=== PATIENT | male | born 1950 | race Caucasian/White ===

== ENCOUNTER 2017-04-19 21:08 | Emergency (ER) | payer BC ==
[~2017-04-19] VITALS: Ht 167.6 cm; Wt 80.5 kg
[~2017-04-19 21:08] MED LIST: ASPEC81 PO; CRTOTS OT; LISI-725 PO
[2017-04-19 21:10] VITALS: Ht 167.6 cm; Wt 80.5 kg
[2017-04-19 22:26] VITALS: BP 199/108; PULSE 83; TEMP 36.6; O2SAT 97
--- NOTE | 2017-04-20 01:30 | EMERGENCY ROOM VISIT NOTE ---
History Report prepared by Jose Luis: Darcy Jovel Under the Supervision of: Dr. Jeanmarie Thompson M.D. First contact with patient: 21:39 Chief Complaint: EYE ASSESSMENT Stated Complaint: LOSS OF VISION IN RIGHT EYE History of Present Illness The patient is a 66 year old male who presents to the Emergency Room with complaints of constant decreased vision in the right eye beginning 4 hours ago. The patient states that he is near sighted and always has black floaters in his vision. He reports that over the last few days the number of floaters in his eye have been increasing in number and today he reports that there was an explosion of them with lightning bolts surrounding his vision before his vision went foggy. He notes that his vision is now foggy in all sales and he is having reduced vision. The patient states that he recently cut back on his Lisinopril dosage. He denies any eye pain, numbness, weakness, chest pain, shortness of breath, diabetes, stroke, vision problems, eye trauma, eye discharge, and photophobia. Source of History: patient Onset: 4 hours ago Position: eye (right) Quality: other (foggy) Timing: constant Associated Symptoms: No chest pain, No SOB, No weakness, No numbness Note: Complains of lightning bolts and floaters. Denies eye pain, vision problems, eye trauma, eye discharge, photophobia. Review of Systems See HPI for pertinent positives & negatives. A total of 10 systems reviewed and were otherwise negative. Past Medical & Surgical Medical Problems: (1) HTN (hypertension) Old medical records were reviewed. Nurse's notes were reviewed and I agree with. Denies any blood thinner usage Family History No pertinent family history stated. Social History Smoking Status: Never Smoker Marital Status: single Occupation Status: employed Current/Historical Medications Scheduled Aspirin Enteric Coated (Ecotrin Or Generic *), 81 MG PO DAILY Lisinopril (Zestril), 20 MG PO DAILY Neomycin/Polymyxin/Hydrocort Otic (Cortisporin Otic *), 4 DROPS OT TID Allergies Coded Allergies: No Known Allergies (Verified Allergy, Mild, 05/17/07) Physical Exam Vital Signs Date Time Temp Pulse Resp B/P (MAP) Pulse Ox O2 Delivery O2 Flow Rate FiO2 04/19/17 22:26 36.6 83 18 199/108 97 10/13/17 22:26 83 18 199/108 97 Room Air 04/19/17 21:10 36.6 83 18 214/97 97 Room Air Right Eye Acuity: 20/50 with glasses Left Eye Acuity: 20/20 with glasses Physical Exam General: Non-ill appearing older male in no acute distress. HEENT: Normal cephalic atraumatic. Pupils are equal round and reactive to light. Extraocular movements are intact. No proptosis, sclera are nonicteric, no lesions. Intraocular pressure was 14 in the right and 17 in the left. Oropharynx is pink with moist mucous membranes. No swelling of the mouth lips or tongue. Neck: Supple with a midline trachea. No meningeal signs or stiffness, no JVD or bruits. No Stridor. Chest: Clear to auscultation bilaterally. No wheezes or rhonchi. No increased work of breathing. Heart: regular rate and rhythm. Abdomen: Soft nontender, nondistended without rebound guarding or rigidity. Extremities: No cyanosis clubbing or edema. No calf tenderness or assymetry Spine/Back. Non tender to palpation. No CVA tenderness Skin: Good turgor without rashes. Neurologic exam: Cranial nerves two through 12 are intact. Motor and sensation are intact and symmetrical throughout. Medical Decision & Procedures Procedure Slit Lamp Examination Indication: Vision Change The right eye was prepped with topical proparacaine. Slit lamp examination was performed in the standard fashion. Cornea appeared normal no lesion. Anterior chamber normal, no hyphema. Scleral injection not present. No discharge present. Fluorescein examination performed and normal. No foreign bodies noted. Negative Sunday sign. The patient tolerated the procedure well without complication. ED Course 2138: Past medical records reviewed. The patient was evaluated in room A2, and a complete history and physical examination were performed. 2211: I spoke to Dr. Peace of Opthamology and he took down the patients number and will call him tomorrow. If he is still having symptoms he will see him in the office. 2223: Upon reevaluation, the patient is doing well. I discussed the results and treatment plan with the patient. He verbalized agreement of the treatment plan. The patient was discharged home. Medical Decision Differentials include, but are not limited to; vitreous hemorrhage, retinal abnormality, TIA. This patient comes in with acute visual changes in his right eye. He's been seen floaters for quite some time to gotten worse over the last day or so and acutely got worse around 3 PM. He does see a lot of black spots. It's not confined to one area and it seems more diffuse. Besides this, he has no complaints of no trauma . There is no eye pain or headache. He has a normal neurologic exam and there is nothing to suggest that this is stroke or amaurosis fugax. Anterior chambers were normal on slit lamp. His intraocular pressures checked with the puff tonometer also normal. It was difficult to see his fundus on a nondilated exam. I did discuss the case with Dr. Peace, senior instructor on-call. He feels that most likely is a vitreous this detachment and this will likely get better on its own. He will actually call the patient in the morning and I gave him the patient's cell phone number which the patient gave me permission to give. He will recheck him in his office tomorrow where he has his full complement of ophthalmologic equipment to get a better exam. The patient was happy with the plan and will be discharged home with close follow-up with the senior instructor in the morning. He was encouraged to return if any new problems or concerns. Medication Reconcilliation Current Medication List: was personally reviewed by me Blood Pressure Screening Patient's blood pressure: Elevated blood pressure Blood pressure disposition: Elevated BP felt to be situational Consults Time Called: 2206 Consulting Physician: Dr. Peace of Opthamology Returned Call: [address] Peace of Opthamology and he took down the patients number and will call him tomorrow. If he is still having symptoms he will see him in the office. Impression Primary Impression: Visual changes Additional Impressions: Vitreous hemorrhage Floaters Scribe Attestation The scribe's documentation has been prepared under my direction and personally reviewed by me in its entirety. I confirm that the note above accurately reflects all work, treatment, procedures, and medical decision making performed by me. Departure Information Dispostion Home / Self-Care Referrals French Arroyo D.O. (PCP) Forms HOME CARE DOCUMENTATION FORM, IMPORTANT VISIT INFORMATION, WORK / SCHOOL INSTRUCTIONS Patient Instructions My [facility] Additional Instructions Rest Drink plenty of fluids Follow-up with Dr. Peace tomorrow, he will be calling you and if your vision is not getting better he can see you in the office Return if: Worsening of symptoms, fever chills, numbness weakness, any new problems or concerns. Problem Qualifiers
== END 2017-04-19 22:29 | disposition home or self-care (01) ==
LOC: C.EDB 21:09 → C.EDA 22:29
DX: H54.7 Unspecified visual loss (principal); H43.11 Vitreous hemorrhage, right eye; H43.391 Other vitreous opacities, right eye; I10 Essential (primary) hypertension; Z79.82 Long term (current) use of aspirin; Z79.899 Other long term (current) drug therapy

== ENCOUNTER 2017-04-24 21:05 | Emergency (ER) | payer OTHER, BC ==
[~2017-04-24] VITALS: Ht 167.6 cm; Wt 77.6 kg
[2017-04-24 21:12] VITALS: TEMP 37; Ht 167.6 cm; Wt 77.6 kg
[2017-04-24] MEDS ORDERED: ATIVAN 1MG HOMEPACK PO ONE (21:45)
[2017-04-24] MEDS ORDERED: ASPI81TA28 PO (21:56)
[2017-04-24] MEDS ORDERED: LISI-461 PO (21:56)
[2017-04-24 22:00] LABS: BASO % 0.2 %; BASO ABS # 0.02 K/uL (0-0.2); COMPLETE YES; EOS % 1.4 %; HEMATOCRIT 50.1 % (42-52); IG% 0.2 %; LYMPH % 23.2 %; LYMPH ABS # 2.67 K/uL (1.2-3.4); MEAN CELL VOLUME 90.8 fL (80-100); MEAN CORPUSCULAR HEMOGLOBIN 30.1 pg (25-34); MEAN CORPUSCULAR HGB CONC 33.1 g/dl (32-36); MONO % 8.9 %; NEUT % 66.1 %; PLATELET COUNT 318 K/uL (130-400); RED BLOOD COUNT 5.52 M/uL (4.7-6.1); WHITE BLOOD COUNT 11.52 K/uL (4.8-10.8)
[2017-04-24 22:23] LABS: BUN/CREATININE RATIO 13.4 (10-20); CALCIUM 9.1 mg/dl (8.5-10.1); CREATININE 1.45 mg/dl (0.60-1.40); POTASSIUM 4.2 mmol/L (3.5-5.1)
--- NOTE | 2017-04-24 22:31 | EMERGENCY ROOM VISIT NOTE ---
ED Visit Note First contact with patient: 21:37 This Patient was discussed with the physician first assistant, ADIS Dockery. The pertinent historical and physical exam findings were confirmed. I agree with the studies ordered and with the interpretations of these studies. I agree with the disposition and care plan.
[2017-04-24 22:35] VITALS: BP 167/110; PULSE 73; O2SAT 95
--- NOTE | 2017-04-25 00:46 | EMERGENCY ROOM VISIT NOTE ---
History First contact with patient: 21:37 Chief Complaint: HYPERTENSION Stated Complaint: HIGH BP History of Present Illness The patient is a 66 year old male who presents to the Emergency Room with complaints of high blood pressure for the past few days who just had retinal detachment surgery. Patient states she has underneath more stress and suffering from anxiety lately. He states he's having increasing anxiety over sleeping on the massage table. He thinks this is contributing to his elevated blood pressure. Patient states he is on lisinopril and his family doctor just increased it from 2.5-10 mg daily.. He states he frequently forgets to take it. He has been taking it daily for the past week though. Patient denies chest pain, dyspnea, headache, weakness, lightheadedness, dizziness, abdominal pain, nausea, vomiting, diarrhea, back pain, leg pain or swelling, recent travel. No family history of heart disease. No family history of blood clots. No prior stress test or echo. Review of Systems See HPI for pertinent positives & negatives. A total of 10 systems reviewed and were otherwise negative. Past Medical/Surgical History Medical Problems: (1) HTN (hypertension) Social History Smoking Status: Never Smoker Smokeless Tobacco Use: No Alcohol Use: none Drug Use: none Marital Status: single Occupation Status: employed Current/Historical Medications Scheduled Aspirin (Aspirin Ec), 81 MG PO DAILY Lisinopril (Zestril), 10 MG PO DAILY Physical Exam Vital Signs Date Time Temp Pulse Resp B/P (MAP) Pulse Ox O2 Delivery O2 Flow Rate FiO2 04/24/17 22:35 73 18 167/110 95 Room Air 04/24/17 21:57 81 16 158/100 96 Room Air 04/24/17 21:37 78 16 169/98 95 Room Air 04/24/17 21:27 79 04/24/17 21:12 37.0 78 18 194/121 96 Room Air Physical Exam VITALS: Vitals are noted on the nurse's note and reviewed by myself. Vital signs hypertensive GENERAL: Pleasant male, in no acute distress, nondiaphoretic, well-developed well-nourished. SKIN: The skin was without rashes, erythema, edema, or bruising. There is no tenting of the skin. Capillary reflex less than 2 seconds. HEAD: Normocephalic atraumatic. EARS: External auditory canals clear, tympanic membranes pearly vasques without erythema or effusion bilaterally. EYES: Left conjunctiva injected Pupils equal round and reactive to light and accommodation. Right Conjunctivae without injection, sclerae without icterus. NOSE: Patent, turbinates without inflammation or discharge. MOUTH: Mucous membranes moist. Pharynx without erythema or exudate. Uvula midline. Airway patent. Tongue does not deviate. NECK: Supple without nuchal rigidity. No lymphadenopathy. No thyromegaly. Cervical spine is nontender. No JVD. HEART: Regular rate and rhythm LUNGS: Clear to auscultation bilaterally without wheezes, rales or rhonchi. No dullness to percussion. No retractions or accessory muscle use. ABDOMEN: Positive bowel sounds x 4. Normal tympanic percussion. Soft, nontender, without masses or organomegaly. Beauchamp sign negative. No guarding or rebound tenderness. MUSCULOSKELETAL: No muscle atrophy, erythema, or edema noted. NEURO: Patient was alert and oriented to person place and time. Normal sensation to light and sharp touch. No focal neurological deficits. Medical Decision & Procedures Laboratory Results 04/24/17 21:20 Red Blood Count 5.52, Mean Corpuscular Volume 90.8, Mean Corpuscular Hemoglobin 30.1, Mean Corpuscular Hemoglobin Concent 33.1, Mean Platelet Volume 10.0, Neutrophils (%) (Auto) 66.1, Lymphocytes (%) (Auto) 23.2, Monocytes (%) (Auto) 8.9, Eosinophils (%) (Auto) 1.4, Basophils (%) (Auto) 0.2, Neutrophils # (Auto) 7.62, Lymphocytes # (Auto) 2.67, Monocytes # (Auto) 1.03, Eosinophils # (Auto) 0.16, Basophils # (Auto) 0.02 04/24/17 21:20 Test 04/24/17 21:20 White Blood Count 11.52 K/uL (4.8-10.8) Red Blood Count 5.52 M/uL (4.7-6.1) Hemoglobin 16.6 g/dL (14.0-18.0) Hematocrit 50.1 % (42-52) Mean Corpuscular Volume 90.8 fL (80-100) Mean Corpuscular Hemoglobin 30.1 pg (25-34) Mean Corpuscular Hemoglobin Concent 33.1 g/dl (32-36) Platelet Count 318 K/uL (130-400) Mean Platelet Volume 10.0 fL (7.4-10.4) Neutrophils (%) (Auto) 66.1 % Lymphocytes (%) (Auto) 23.2 % Monocytes (%) (Auto) 8.9 % Eosinophils (%) (Auto) 1.4 % Basophils (%) (Auto) 0.2 % Neutrophils # (Auto) 7.62 K/uL (1.4-6.5) Lymphocytes # (Auto) 2.67 K/uL (1.2-3.4) Monocytes # (Auto) 1.03 K/uL (0.11-0.59) Eosinophils # (Auto) 0.16 K/uL (0-0.5) Basophils # (Auto) 0.02 K/uL (0-0.2) RDW Standard Deviation 42.2 fL (36.4-46.3) RDW Coefficient of Variation 12.7 % (11.5-14.5) Immature Granulocyte % (Auto) 0.2 % Immature Granulocyte # (Auto) 0.02 K/uL (0.00-0.02) Anion Gap 7.0 mmol/L (3-11) Est Creatinine Clear Calc Drug Dose 47.8 ml/min Estimated GFR () 56.9 Estimated GFR (Non- 49.1 BUN/Creatinine Ratio 13.4 (10-20) Calcium Level 9.1 mg/dl (8.5-10.1) Medications Administered Medications (Trade) Dose Ordered Sig/Crow Route Start Time Stop Time Status Last Admin Dose Admin Lorazepam (Ativan 1MG Home Pack) 1 homepack UD ONCE PO 04/24/17 21:45 04/24/17 21:50 DC 04/24/17 22:34 1 HOMEPACK ED Course Prior records/ancillary studies reviewed regarding the history above. Triage Nursing notes reviewed. The patient's history was concerning for hypertension. Differential diagnosis: Etiologies such as benign hypertension, hypertensive emergency, cardiovascular pathology, pheochromocytoma, electrolyte abnormality, renal disease, endorgan damage, as well as others were entertained. Physical examination: As above. No signs of end organ damage. ER treatment provided: Home pack On reassessment the patient felt better. Diagnostic interpretation by me: The electrocardiogram was negative for pathologic change. Normal sinus, normal intervals, no acute ST-T wave changes. Impression normal sinus rhythm interpreted by myself The labs revealed mild leukocytosis. Patient just had a retinal detachment surgery This appears to be consistent with elevated blood pressure. Patient just had eye surgery. He has been underneath more anxiety and stress lately. He has not been sleeping well. He just had his blood pressure medicine increased by the family care doctor. He has a follow-up in a few days. He was advised to monitor his blood pressure and to follow-up with family care and ophthalmology in a few days or here in the ER sooner for headache, chest pain, difficulty breathing, high blood pressure, worsening signs or symptoms or as needed. Patient was neurovascularly neurologic intact. He is well-appearing. By the evaluation outlined above emergent etiologies such as hypertensive emergency, pheochromocytoma, endorgan damage, cardiac ischemia, aortic dissection, pulmonary embolism, pneumonia, pneumothorax, infections, gastrointestinal, as well as others were deemed relatively unlikely. The pt informed about the findings as listed above. All questions were answered and pleased with the treatment. Return instructions were outlined and the patient was discharged in stable condition. Outpatient prescription management: Ativan Referral: The patient was referred back to their primary care physician and ophthalmology for follow-up in 2 to 3 days for a recheck of the current condition. Case reviewed with my attending Medical Decision As above Medication Reconcilliation Current Medication List: was personally reviewed by me Blood Pressure Screening Patient's blood pressure: Elevated blood pressure Blood pressure disposition: Referred to PCP Impression Primary Impression: High blood pressure Additional Impression: Anxiety Departure Information Dispostion Home / Self-Care Condition GOOD Forms WORK / SCHOOL INSTRUCTIONS, HOME CARE DOCUMENTATION FORM, IMPORTANT VISIT INFORMATION Patient Instructions Hypertension Id, My [facility] Additional Instructions Ativan 1 mg: Half a tablet to 1 tablet as needed at night for anxiety. No alcohol or driving on this medication. Monitor your blood pressure. Follow-up as scheduled with your family doctor in one week for further workup for your elevated blood pressure. Follow-up as scheduled with your automatic buffer for further workup for your retinal detachment. Rest. Decrease stress. Return to ER sooner for chest pain, difficulty breathing, headaches, high blood pressure, worsening signs or symptoms or as needed. Problem Qualifiers Primary Impression: High blood pressure Hypertension type: unspecified Qualified Codes: I10 - Essential (primary) hypertension
== END 2017-04-24 22:50 | disposition home or self-care (01) ==
LOC: C.EDB 21:06 → C.EDA 22:50
DX: I10 Essential (primary) hypertension (principal); F41.9 Anxiety disorder, unspecified; Z79.82 Long term (current) use of aspirin

== ENCOUNTER → 2017-05-03 | Outpatient (CLI) | payer OTHER, BC ==
[~2017-05-03] MED LIST changes: -ASPEC81 PO; +ASPI81TA28 PO; -CRTOTS OT; +LISI-461 PO; -LISI-725 PO
[2017-05-03 17:46] LABS: BLOOD UREA NITROGEN 18 mg/dl (7-18); BUN/CREATININE RATIO 12.8 (10-20); CALCIUM 9.2 mg/dl (8.5-10.1); CARBON DIOXIDE 28 mmol/L (21-32); CHLORIDE 104 mmol/L (98-107); CREATININE 1.39 mg/dl (0.60-1.40); GLUCOSE 92 mg/dl (70-99); POTASSIUM 4.1 mmol/L (3.5-5.1); SODIUM 139 mmol/L (136-145)
== END | disposition home or self-care (01) ==
LOC: C.LAB1850 16:26
PROVIDERS: ATTEND Student in an Organized Health Care Education/Training Program
DX: I10 Essential (primary) hypertension (principal)

== ENCOUNTER → 2017-07-31 | Day surgery (SDC) | payer OTHER, BC ==
[2017-07-10 14:48] VITALS: Ht 167.6 cm; Wt 75.0 kg
[~2017-07-31] VITALS: Ht 167.6 cm; Wt 75.0 kg
[~2017-07-31] MED LIST changes: +500ML BSS 0.3ML EPI 1:1000PF IRRIG ONE; +ACETAMINOPHEN 325 MG TAB PO PRN; +AMLO5TAB2 PO; +AMVISC PLUS 0.8ML SYRINGE INT OCU ONE; +ATROPINE SULFATE 0.1 MG/ML 5ML SYR IV PRN; +AcetaZOLAMIDE 250 MG TAB PO SCH; +BETAXOLOL HCL 0.25% OP SUSP PER DROP CHARGE OPR SCH; +BRIMONIDINE TART 0.2% OP SOLN PER DROP CHARGE ONE; +BRIMONIDINE TARTRATE 0.2% 5ML ONE; +ENDOCOAT 0.85ML SYRINGE INT OCU ONE; +EpINEphrine INJ 1MG/ML AMP 1 MG/ML AMP ONE; +LACTATED RINGER'S 1000ML 500 ML IV SCH; +LIDOCAINE 4% OP SOLN DROP CHARGE ONE; +LIDOCAINE 4% OP SOLN DROP CHARGE OPR SCH; +LIDOCAINE HCL 1% MPF 2 ML VIAL ONE; -LISI-461 PO; +LISI20TA3 PO; +MIDAZOLAM HCL 1 MG/ML 2ML VIAL ONE; +MIX: 4ML BSS 1ML EPI 1:1000 PF INSTIL ONE; +MOXIFLOXACIN OPH SOLN PER DROP CHARGE ONE; +OCUCOAT 1 ML SOLN IO ONE; +POVIDONE-IODINE OP SOLN 30 ML BTL ONE; +PROPARACAINE 0.5% OP SOLN PER DROP CHARGE OPR SCH; +TOBRAMYCIN/DEXAMETHASONE OPH OINT PER APPLN CHARGE ONE
[2017-07-31] MEDS: PHENYLEPHRINE HCL 2.5% OP SOLN PER DROP CHARGE OPR SCH ×2 (06:32→06:37)
[2017-07-31] MEDS: TROPICAMIDE 1% OP SOLN PER DROP CHARGE OPR SCH ×2 (06:33→06:38)
[2017-07-31] MEDS: CYCLOPENTOLATE HCL 1% OP SOLN PER DROP CHARGE OPR SCH ×2 (06:34→06:39)
[2017-07-31] MEDS: MOXIFLOXACIN OPH SOLN PER DROP CHARGE OPR SCH ×2 (06:35→06:45)
--- NOTE | 2017-07-31 06:47 | History & Physical Bridge - SC ---
H&P Re-Evaluation Bridge Note: I have examined the patient, reviewed the History & Physical and in the interval since the performance of the History & Physical I have noted the following changes of clinical significance: No changes noted
--- NOTE | 2017-07-31 07:17 | [facility] Operative Report ---
Operative Report Date of Service Jul 31, 2017. Operative Report 1. PREOPERATIVE DIAGNOSIS: Senile nuclear cataract, right eye. 2. POSTOPERATIVE DIAGNOSIS: Senile nuclear cataract, right eye. 3. PROCEDURE: Phacoemulsification of right cataract with posterior chamber lens implant, type [employer], model MX60, power +16.5 diopters. ANESTHESIA: Local standby. SURGEON: Dr. Peace. COMPLICATIONS: None. OPERATING TIME: 10 minutes. 4. OPERATION AND FINDINGS: DESCRIPTION OF PROCEDURE: The right pupil was dilated. The anesthetic was administered using a topical technique. The right eye was prepped and draped. A speculum was placed. A clear corneal incision was formed. The chamber was filled with Amvisc Plus and Endocoat. Epinephrine solution was used. A paracentesis was placed. A capsulorrhexis was performed. The nucleus was hydrodissected. The lens was removed with phacoemulsification. Time was 5.53 seconds. The aspiration unit was used to remove the cortex. The capsule was filled with Amvisc Plus. The lens implant was folded and placed into the capsule. The incision was hydrated. The Amvisc was aspirated. The wound was secure. The chamber was deep. The pupil was round. Brimonidine, TobraDex ointment and Vigamox solution were placed. The speculum was removed. The patient was returned to the Recovery Room in stable condition. I attest to the content of the Intraoperative Record and any orders documented therein. Any exceptions are noted below. The scribe's documentation has been prepared in my presence, under my direction and personally reviewed by me in its entirety. I confirm that the note above accurately reflects all work, treatment, procedures, and medical decision making performed by me. I personally scribed for Momo Peace M.D. ([email or web address]) on 07/31/17 at 07:17. Electronically submitted by Sanjana Mckeon ([email or web address]).
--- NOTE | 2017-07-31 07:21 | Discharge Instructions-SurgCtr ---
Discharge Instructions Date of Service Jul 31, 2017. Visit Reason for Visit: Right Cataract Discharge Discharge Diagnosis / Problem: lens implant right eye Discharge Goals Goal(s): Improve function Activity Recommendations Activity Limitations: resume your previous activity Lifting Limitations: no more than 10 pounds Exercise/Sports Limitations: gradually increase as tolerated May Resume Sexual Activity: when tolerated Shower/Bathe: tomorrow Driving or Machine Use: resume 1 day after discharge Anesthesia . Post Anesthesia Instructions: If you have had General Anesthesia or IV Sedation: * Do not drive today. * Resume driving when surgeon permits. * Do not make important decisions or sign legal documents today. * Call surgeon for: 1. Temperature elevations greater than 101 degrees F. 2. Uncontrollable pain. 3. Excessive bleeding. 4. Persistent nausea and vomiting. 5. Medication intolerance (nausea, vomiting or rash). * For nausea and vomiting use only clear liquids such as: tea, soda, bouillon until nausea subsides, then gradually increase diet as tolerated. * If you have any concerns or questions, call your surgeon's office. If physician is unavailable and it is an emergency, call 911 or go to the nearest emergency room. . Instructions / Follow-Up Instructions / Follow-Up ACTIVITY RECOMMENDATIONS: * Light activities. * Mild irritation and blurred vision are common for the first few days. * You may walk outside, read, watch television. * Redness around the white part of the eye is common. MEDICATIONS: Resume previous medications unless instructed otherwise by your surgeon. * Take white Diamox (Acetazolamide) tablet at 1 pm today. Start all eye drops at 1 pm today: * Eye drops (today and tomorrow): Prednisone - one drop in operative eye every 3 hours while awake Ofloxacin - one drop in operative eye every 3 hours while awake Ketorolac - one drop in operative eye every 3 hours while awake SPECIAL CARE INSTRUCTIONS: * Tape plastic shield over eye to sleep at night. Call your doctor at with any concerns or problems. FOLLOW UP VISIT: Follow-up with Dr Peace at [facility] office as scheduled. Diet Recommendations Home Diet: no limitations Procedures Procedures Performed: Right Cataract Phacoemulsification With Intraocular Lens Implant Pending Studies Studies pending at discharge: no Medical Emergencies . Who to Call and When: Medical Emergencies: If at any time you feel your situation is an emergency, please call 911 immediately. . Non-Emergent Contact Non-Emergency issues call your: Content Administrator Call Non-Emergent contact if: your pain is not controlled [phone] . . "Provider Documentation" section prepared by Momo Peace. .
[2017-07-31 07:22] VITALS: TEMP 36.6
[2017-07-31 07:44] VITALS: BP 131/78; PULSE 64; O2SAT 99
--- NOTE | 2017-07-31 07:55 | Anesthesia Progress Nt - [facility] ---
Anesthesia Post Op Note Date & Time Jul 31, 2017 at 07:55 Vital Signs Pain Intensity: 0 Vital Signs Past 12 Hours Date Time Temp Pulse Resp B/P (MAP) Pulse Ox O2 Delivery O2 Flow Rate FiO2 07/31/17 07:44 64 16 131/78 (95) 99 Room Air 07/31/17 07:22 36.6 74 16 124/77 (93) 95 Room Air 07/31/17 06:25 36.7 68 18 165/94 (117) 97 Room Air Notes Mental Status: alert / awake / arousable, participated in evaluation Pt Amnestic to Procedure: Yes Nausea / Vomiting: adequately controlled Pain: adequately controlled Airway Patency, RR, SpO2: stable & adequate BP & HR: stable & adequate Hydration State: stable & adequate Anesthetic Complications: no major complications apparent
== END | disposition home or self-care (01) ==
LOC: X.SURG 06:15
PROVIDERS: ATTEND Specialist
DX: H25.11 Age-related nuclear cataract, right eye (principal); I10 Essential (primary) hypertension; Z90.89 Acquired absence of other organs; Z98.890 Other specified postprocedural states

== ENCOUNTER 2017-09-18 16:39 | Emergency (ER) | payer OTHER, BC ==
[~2017-09-18] VITALS: Ht 167.6 cm; Wt 79.0 kg
[~2017-09-18 16:39] MED LIST changes: -500ML BSS 0.3ML EPI 1:1000PF IRRIG ONE; -ACETAMINOPHEN 325 MG TAB PO PRN; -AMVISC PLUS 0.8ML SYRINGE INT OCU ONE; -ATROPINE SULFATE 0.1 MG/ML 5ML SYR IV PRN; -AcetaZOLAMIDE 250 MG TAB PO SCH; -BETAXOLOL HCL 0.25% OP SUSP PER DROP CHARGE OPR SCH; -BRIMONIDINE TART 0.2% OP SOLN PER DROP CHARGE ONE; -BRIMONIDINE TARTRATE 0.2% 5ML ONE; -ENDOCOAT 0.85ML SYRINGE INT OCU ONE; -EpINEphrine INJ 1MG/ML AMP 1 MG/ML AMP ONE; -LACTATED RINGER'S 1000ML 500 ML IV SCH; -LIDOCAINE 4% OP SOLN DROP CHARGE ONE; -LIDOCAINE 4% OP SOLN DROP CHARGE OPR SCH; -LIDOCAINE HCL 1% MPF 2 ML VIAL ONE; -MIDAZOLAM HCL 1 MG/ML 2ML VIAL ONE; -MIX: 4ML BSS 1ML EPI 1:1000 PF INSTIL ONE; -MOXIFLOXACIN OPH SOLN PER DROP CHARGE ONE; -OCUCOAT 1 ML SOLN IO ONE; -POVIDONE-IODINE OP SOLN 30 ML BTL ONE; -PROPARACAINE 0.5% OP SOLN PER DROP CHARGE OPR SCH; -TOBRAMYCIN/DEXAMETHASONE OPH OINT PER APPLN CHARGE ONE
[2017-09-18 16:53] VITALS: TEMP 36.7; Ht 167.6 cm; Wt 79.0 kg
[2017-09-18] MEDS ORDERED: LORAZEPAM 0.5 MG TAB PO STA (17:20)
[2017-09-18 17:32] LABS: BASO % 0.2 %; BASO ABS # 0.02 K/uL (0-0.2); EOS % 0.4 %; EOS ABS # 0.04 K/uL (0-0.5); HEMOGLOBIN 16.6 g/dL (14.0-18.0); IG# 0.02 K/uL (0.00-0.02); LYMPH ABS # 2.08 K/uL (1.2-3.4); MEAN CELL VOLUME 92.3 fL (80-100); MEAN CORPUSCULAR HEMOGLOBIN 31.9 pg (25-34); MEAN CORPUSCULAR HGB CONC 34.6 g/dl (32-36); MEAN PLATELET VOLUME 9.4 fL (7.4-10.4); MONO % 5.6 %; MONO ABS # 0.51 K/uL (0.11-0.59); NEUT % 70.6 %; NEUT ABS # 6.37 K/uL (1.4-6.5); PLATELET COUNT 265 K/uL (130-400); RED CELL DISTRIBUTION WIDTH CV 12.6 % (11.5-14.5); RED CELL DISTRIBUTION WIDTH SD 42.4 fL (36.4-46.3); WHITE BLOOD COUNT 9.04 K/uL (4.8-10.8)
--- NOTE | 2017-09-18 17:47 | DIAGNOSTIC IMAGING REPORT ---
CT OF THE HEAD WITHOUT CONTRAST CLINICAL HISTORY: Evaluate for left eye floaters. Hypertension. COMPARISON STUDY: No previous studies for comparison. CT DOSE: 704.46 mGy.cm TECHNIQUE: Helical axial images of the head were obtained without IV contrast. Automated exposure control was utilized for the study. A dose lowering technique was utilized adhering to the principles of ALARA. FINDINGS: No acute intracranial hemorrhage, midline shift or mass effect is present. Brain volume is normal. Ventricular system is normal. Basilar cisterns are patent. There are no extra-axial collections. White matter hypodensity suggests small vessel disease. There are no findings to suggest acute dural sinus thrombosis or acute territorial infarct. There are no significant calvarial abnormalities. IMPRESSION: No acute intracranial findings. Electronically signed by: Ochoa Calle M.D. 09/18/2017 5:46 PM Dictated Date/Time: 09/18/2017 5:43 PM
[2017-09-18 17:53] LABS: ALBUMIN 4.1 gm/dl (3.4-5.0); ALT/SGPT 29 U/L (12-78); AST/SGOT 20 U/L (15-37); BLOOD UREA NITROGEN 21 mg/dl (7-18); CALCIUM 9.7 mg/dl (8.5-10.1); CARBON DIOXIDE 27 mmol/L (21-32); CREATININE 1.45 mg/dl (0.60-1.40); GLUCOSE 115 mg/dl (70-99); LIPASE 241 U/L (73-393); POTASSIUM 3.9 mmol/L (3.5-5.1); SODIUM 136 mmol/L (136-145)
--- NOTE | 2017-09-18 17:55 | DIAGNOSTIC IMAGING REPORT ---
CT SCAN OF THE ORBITS WITHOUT IV CONTRAST CLINICAL HISTORY: Floaters in the left eye. Visual changes. COMPARISON STUDY: CT of the brain performed concurrently on 09/18/2017. TECHNIQUE: High-resolution CT scan of the orbits is performed. Images are reviewed in the axial, sagittal, and coronal planes. IV contrast was not administered for this examination as per the referring clinician. A dose lowering technique was utilized adhering to the principles of ALARA. FINDINGS: The skeletal structures are osteopenic. The bony orbits are intact. Orbital contents are normal in appearance noting a right-sided ocular lens implant. There is no evidence of intra or extraconal mass. The extraocular muscles are normal and symmetric. The paranasal sinuses are clear. The mastoid air cells are well pneumatized. The visualized calvarium appears preserved. The imaged brain parenchyma is normal in appearance. IMPRESSION: 1. The bony orbits are intact. 2. Orbital contents are normal in appearance noting a right-sided ocular lens implant. Dictated: 09/18/2017 5:46 PM Transcribed: 09/18/2017 5:55 PM MARCO_Ced Electronically signed by: Saul Aguayo M.D. 09/18/2017 6:02 PM Dictated Date/Time: 09/18/2017 5:46 PM
[2017-09-18 17:56] LABS: ALKALINE PHOSPHATASE 80 U/L (45-117); TOTAL PROTEIN 7.9 gm/dl (6.4-8.2)
[2017-09-18] MEDS ORDERED: LISI10TA PO (18:15)
[2017-09-18] MEDS ORDERED: LORA-741 PO (18:22)
[2017-09-18 18:29] VITALS: BP 177/94; PULSE 78; O2SAT 95
--- NOTE | 2017-09-18 18:37 | EMERGENCY ROOM VISIT NOTE ---
History Report prepared by Jose Luis: Amy Rowland Under the Supervision of: Dr. Jeanmarie Thompson M.D. First contact with patient: 17:11 Chief Complaint: HYPERTENSION Stated Complaint: HIGH BLOOD PRESSURE History of Present Illness The patient is a 67 year old male who presents to the Emergency Room with complaints of persistent high blood pressure starting a couple days ago. The patient started to notice more floaters in his left eye 1-2 hours ago. He came to the ED today because the last time his blood pressure was high, he lost vision in his right eye. This loss in vision was preceded by increased floaters in his eye. He is concerned that the same might happen to his left eye today. He notes that he has been stressed recently and is feeling anxious. He denies any numbness, weakness, headache, chest pain, SOB, abdominal pain, or eye pain. The patient is on lisinopril and amlodipine. He denies any missed medications. He is on aspirin and no other blood thinners. He denies any history of glaucoma. He denies any alcohol use. Source of History: patient, family Onset: couple days ago Position: other (diffuse) Quality: other (high blood pressure) Timing: other (persistent) Associated Symptoms: No headache, No chest pain, No SOB, No abdominal pain, No weakness, No numbness Note: Pt reports feeling anxious. Review of Systems See HPI for pertinent positives & negatives. A total of 10 systems reviewed and were otherwise negative. Past Medical & Surgical Medical Problems: (1) HTN (hypertension) Old medical records were reviewed. Nurse's notes were reviewed and I agree with. Insert Family History FH: heart disease Hypertension Kidney disease Kidney stones Social History Smoking Status: Never Smoker Alcohol Use: none Drug Use: none Occupation Status: employed Current/Historical Medications Scheduled Aspirin (Aspirin Ec), 81 MG PO QAM Lisinopril (Prinivil), 10 MG PO QAM Scheduled PRN Amlodipine Besylate (Norvasc), 5 MG PO for Blood Pressure Lorazepam (Ativan), 0.5 MG PO Q6H PRN for Anxiety/Agitation Allergies Coded Allergies: No Known Allergies (Verified , 09/18/17) Physical Exam Vital Signs Date Time Temp Pulse Resp B/P (MAP) Pulse Ox O2 Delivery O2 Flow Rate FiO2 09/18/17 18:29 78 17 177/94 95 09/18/17 17:57 80 17 171/87 97 Room Air 09/18/17 17:31 190/93 09/18/17 16:53 36.7 87 18 225/87 99 Room Air Physical Exam General: Non-ill appearing mildly anxious older male in no acute distress. HEENT: Normal cephalic atraumatic. Pupils are equal round and reactive to light. Extraocular movements are intact. Oropharynx is pink with moist mucous membranes. No swelling of the mouth lips or tongue. Neck: Supple with a midline trachea. No meningeal signs or stiffness, no JVD or bruits. No Stridor. Chest: Clear to auscultation bilaterally. No wheezes or rhonchi. No increased work of breathing. Heart: regular rate and rhythm. Abdomen: Soft nontender, nondistended without rebound guarding or rigidity. Extremities: No cyanosis clubbing or edema. No calf tenderness or assymetry Spine/Back. Non tender to palpation. No CVA tenderness Skin: Good turgor without rashes. Neurologic exam: Cranial nerves two through 12 are intact. Motor and sensation are intact and symmetrical throughout. Medical Decision & Procedures ER Provider Diagnostic Interpretation: Radiology results as stated below per my review and radiologist interpretation: CT OF THE HEAD WITHOUT CONTRAST CLINICAL HISTORY: Evaluate for left eye floaters. Hypertension. COMPARISON STUDY: No previous studies for comparison. CT DOSE: 704.46 mGy.cm TECHNIQUE: Helical axial images of the head were obtained without IV contrast. Automated exposure control was utilized for the study. A dose lowering technique was utilized adhering to the principles of ALARA. FINDINGS: No acute intracranial hemorrhage, midline shift or mass effect is present. Brain volume is normal. Ventricular system is normal. Basilar cisterns are patent. There are no extra-axial collections. White matter hypodensity suggests small vessel disease. There are no findings to suggest acute dural sinus thrombosis or acute territorial infarct. There are no significant calvarial abnormalities. IMPRESSION: No acute intracranial findings. Electronically signed by: Ochoa Calle M.D. 09/18/2017 5:46 PM Dictated Date/Time: 09/18/2017 5:[address] SCAN OF THE ORBITS WITHOUT IV CONTRAST CLINICAL HISTORY: Floaters in the left eye. Visual changes. COMPARISON STUDY: CT of the brain performed concurrently on 09/18/2017. TECHNIQUE: High-resolution CT scan of the orbits is performed. Images are reviewed in the axial, sagittal, and coronal planes. IV contrast was not administered for this examination as per the referring clinician. A dose lowering technique was utilized adhering to the principles of ALARA. FINDINGS: The skeletal structures are osteopenic. The bony orbits are intact. Orbital contents are normal in appearance noting a right-sided ocular lens implant. There is no evidence of intra or extraconal mass. The extraocular muscles are normal and symmetric. The paranasal sinuses are clear. The mastoid air cells are well pneumatized. The visualized calvarium appears preserved. The imaged brain parenchyma is normal in appearance. IMPRESSION: 1. The bony orbits are intact. 2. Orbital contents are normal in appearance noting a right-sided ocular lens implant. Dictated: 09/18/2017 5:46 PM Transcribed: 09/18/2017 5:55 PM [place] Electronically signed by: Saul Aguayo M.D. 09/18/2017 6:02 PM Dictated Date/Time: 09/18/2017 5:46 PM Laboratory Results 09/18/17 16:17 Red Blood Count 5.20, Mean Corpuscular Volume 92.3, Mean Corpuscular Hemoglobin 31.9, Mean Corpuscular Hemoglobin Concent 34.6, Mean Platelet Volume 9.4, Neutrophils (%) (Auto) 70.6, Lymphocytes (%) (Auto) 23.0, Monocytes (%) (Auto) 5.6, Eosinophils (%) (Auto) 0.4, Basophils (%) (Auto) 0.2, Neutrophils # (Auto) 6.37, Lymphocytes # (Auto) 2.08, Monocytes # (Auto) 0.51, Eosinophils # (Auto) 0.04, Basophils # (Auto) 0.02 09/18/17 16:17 Test 09/18/17 16:17 09/18/17 17:26 White Blood Count 9.04 K/uL (4.8-10.8) Red Blood Count 5.20 M/uL (4.7-6.1) Hemoglobin 16.6 g/dL (14.0-18.0) Hematocrit 48.0 % (42-52) Mean Corpuscular Volume 92.3 fL (80-100) Mean Corpuscular Hemoglobin 31.9 pg (25-34) Mean Corpuscular Hemoglobin Concent 34.6 g/dl (32-36) Platelet Count 265 K/uL (130-400) Mean Platelet Volume 9.4 fL (7.4-10.4) Neutrophils (%) (Auto) 70.6 % Lymphocytes (%) (Auto) 23.0 % Monocytes (%) (Auto) 5.6 % Eosinophils (%) (Auto) 0.4 % Basophils (%) (Auto) 0.2 % Neutrophils # (Auto) 6.37 K/uL (1.4-6.5) Lymphocytes # (Auto) 2.08 K/uL (1.2-3.4) Monocytes # (Auto) 0.51 K/uL (0.11-0.59) Eosinophils # (Auto) 0.04 K/uL (0-0.5) Basophils # (Auto) 0.02 K/uL (0-0.2) RDW Standard Deviation 42.4 fL (36.4-46.3) RDW Coefficient of Variation 12.6 % (11.5-14.5) Immature Granulocyte % (Auto) 0.2 % Immature Granulocyte # (Auto) 0.02 K/uL (0.00-0.02) Erythrocyte Sedimentation Rate 10 mm/hr (0-14) Anion Gap 7.0 mmol/L (3-11) Est Creatinine Clear Calc Drug Dose 47.5 ml/min Estimated GFR () 56.5 Estimated GFR (Non- 48.8 BUN/Creatinine Ratio 14.6 (10-20) Calcium Level 9.7 mg/dl (8.5-10.1) Total Bilirubin 0.4 mg/dl (0.2-1) Direct Bilirubin < 0.1 mg/dl (0-0.2) Aspartate Amino Transf (AST/SGOT) 20 U/L (15-37) Alanine Aminotransferase (ALT/SGPT) 29 U/L (12-78) Alkaline Phosphatase 80 U/L (45-117) Total Protein 7.9 gm/dl (6.4-8.2) Albumin 4.1 gm/dl (3.4-5.0) Lipase 241 U/L (73-393) Bedside Troponin I < 0.030 ng/ml (0-0.045) Laboratory studies as stated above per my review. Medications Administered Medications (Trade) Dose Ordered Sig/Crow Route Start Time Stop Time Status Last Admin Dose Admin Lorazepam (Ativan Tab) 0.5 mg NOW STAT PO 09/18/17 17:20 09/18/17 17:23 DC 09/18/17 17:31 0.5 MG ECG Per My Interpretation Indication: other Rate (beats per minute): 87 Rhythm: normal sinus Findings: no acute ischemic change, no ectopy, other (poor baseline) Comparison ECG Date: 24-Apr-2017 Change: no significant change ED Course 1711: Past medical records reviewed. The patient was evaluated in room A12B, and a complete history and physical examination were performed. 172: Ativan Tab 0.5 mg PO. 1816: I discussed the patient's case with [facility] [place] ophthalmology. He will see the patient in the office tomorrow. 182: Upon reevaluation, the patient is feeling better. I discussed the results and treatment plan with him. He verbalized agreement of the treatment plan. The patient was discharged home. Medical Decision Differentials include, but are not limited to; anxiety, hypertension, intracranial process, CVA, cardiac disease, electrolyte or metabolic abnormality. This patient comes in as described above he was concerned his blood pressure was high. He had a vitreous hemorrhage/retinal detachment in the right eye in the past and had blood pressure elevation at that time. He has been very anxious lately. He has no other symptoms with exception of seeing more floaters on the left eye with occasional flash. We checked his visual acuity in that eye and it is 20/20. He was 20/70 in the right eye which he has had some previous damage and surgery on. He has no other neurologic symptoms. He has no chest pain or shortness of breath. EKG was unremarkable. CAT scan of the head and orbits do not show any acute findings. The anterior part of the eye looks normal. There is nothing to suggest glaucoma. He has no eye pain. His sed rate is not elevated. I discussed case with Dr. Peace who is seen this patient in the past. The patient was given Ativan here 0.5 mg PO for anxiety as he says he was feeling very anxious and his pressure is coming down with this. He does feel better. He did not drive. I will give him a small prescription for this and warned him that this can make him drowsy and do not take before drinking, driving, working. Dr. Valdivia said somebody's office can see him tomorrow morning. The patient was happy with this. I recommend he follow-up with his regular doctor as well as he may need long-term management of his high blood pressure or anxiety. He was encouraged to return to the ER if : worsening of symptoms, numbness or weakness, fever or chills, any new problems or concerns. He is happy to plan and discharged to home. Medication Reconcilliation Current Medication List: was personally reviewed by me Blood Pressure Screening Patient's blood pressure: Elevated blood pressure Blood pressure disposition: Referred to PCP Consults Time Called: 1811 Consulting Physician: [facility] Returned Call: 1816 I discussed the patient's case with him. He will see the patient in the office tomorrow. Impression Primary Impression: HTN (hypertension) Additional Impressions: Visual changes Anxiety Scribe Attestation The scribe's documentation has been prepared under my direction and personally reviewed by me in its entirety. I confirm that the note above accurately reflects all work, treatment, procedures, and medical decision making performed by me. Departure Information Dispostion Home / Self-Care Prescriptions Lorazepam (ATIVAN) 0.5 Mg Tab 0.5 MG PO Q6H Y for Anxiety/Agitation, #10 TAB Prov: Jeanmarie Thompson M.D. 09/18/17 Referrals French Arroyo D.O. (PCP) Forms HOME CARE DOCUMENTATION FORM, IMPORTANT VISIT INFORMATION, WORK / SCHOOL INSTRUCTIONS Patient Instructions My [facility] Additional Instructions Rest. Follow-up with your doctor this week for recheck of your blood pressure Return to the ER if increasing: Pain, worsening of symptoms, change in vision, any new problems or concerns Follow-up with Dr. Peace's office tomorrow for recheck For stress or anxiety, similar to the shoulder now may use Ativan 0.5 mg every 8 hours if needed Anxiety may make you drowsy and do not take before drinking, driving, working Check and log her blood pressure several times a day when relaxed Problem Qualifiers
== END 2017-09-18 18:30 | disposition home or self-care (01) ==
LOC: C.EDB 16:41 → C.EDA 18:30
DX: I10 Essential (primary) hypertension (principal); H53.9 Unspecified visual disturbance; F41.9 Anxiety disorder, unspecified

== ENCOUNTER 2019-01-23 02:02 | Inpatient (IN) ==
[2019-01-23] MEDS ORDERED: SODIUM CHLORIDE 0.9% 1000ML 1,000 ML IV ONE ×2 (02:51→02:52)
[2019-01-23 02:59] LABS: Basophils # (auto) 0.02 K/uL (0-0.2); Basophils % (auto) 0.2 %; Eosinophils # (auto) 0.13 K/uL (0-0.5); Eosinophils % (auto) 1.2 %; Hematocrit (blood only) 46.6 % (42-52); Hemoglobin 16.4 g/dL (14.0-18.0); Immature Granulocytes # (auto) 0.03 K/uL (0.00-0.02); Immature Granulocytes % (auto) 0.3 %; Lymphocytes # (auto) 2.15 K/uL (1.2-3.4); Lymphocytes % (auto) 20.4 %; Mean Corpuscular Hgb Conc 35.2 g/dL (32-36); Mean Corpuscular Volume 89.6 fL (80-100); Mean Platelet Volume 10.5 fL (7.4-10.4); Monocytes # (auto) 0.86 K/uL (0.11-0.59); Monocytes % (auto) 8.2 %; Neutrophils # (auto) 7.33 K/uL (1.4-6.5); Neutrophils % (auto) 69.7 %; Platelet Count 322 K/uL (130-400); RDW Coefficient of Variation 12.4 % (11.5-14.5); RDW Standard Deviation 40.3 fL (36.4-46.3); White Blood Count 10.52 K/uL (4.8-10.8)
[2019-01-23 03:07] LABS: Albumin Level 3.4 gm/dl (3.4-5.0); BUN Creatinine Ratio 9.5 (10-20); Calcium 9.3 mg/dl (8.5-10.1); Creatinine Clr Calc Pharmacy 36.7 ml/min; Est GFR (African American) 46.7; Est GFR (Non-African American) 40.3; Potassium 3.7 mmol/L (3.5-5.1)
[2019-01-23 03:18] LABS: Albumin Globulin Ratio 0.9 (0.9-2); Bilirubin,Total 1.9 mg/dl (0.2-1); Globulin 3.9 gm/dl (2.5-4.0); Total Protein 7.3 gm/dl (6.4-8.2)
[2019-01-23] MEDS ORDERED: METOPROLOL TARTRATE 1 MG/ML VIAL IV STA (03:31)
--- NOTE | 2019-01-23 04:29 | History & Physical Report ---
Date of Service January 23, 2019 Assessment & Plan (1) Atrial fibrillation with RVR: 67 y/o M hx HTN, HLD, CKD III, PAF. Presents with palpitations and abdominal pain. The pt was diagnosed with AF 08/2018. He was successfully cardioverted at that time and had not reverted to AF since. He developed tachycardia today and recognized that this was likely AF, presenting to the hospital therefore. He denies CP or SOB. He did however, c/o diffuse abdominal pain over the past 2 weeks. The pt's HR was in the 160s on arrival to the ER. Initial labs were notable for an elevated lipase and elevated LFTs. He denies nausea, vomiting or diarrhea. 1) Rapid AF - the pt is assigned to telemetry with a diltiazem drip. He remains on Eliquis and received additional metoprolol in the ER which had a marginal effect. We have consulted cardiology as they may want to perform additional cardioversion. 2) Abnormal LFTs/abdominal pain - pending US results - may have an obstruction. We will likely consult GI. 3) CKD creatinine is slightly above baseline - IVF provided - recheck BMP AM 4) HTN - hold Lisinopril - cont metoprolol with parameters 5) HLD - can continue Atorvastatin Full code - on Eliquis Total time for this admit including review of labs, meds, imaging, records - discussion with pt and ER attending. Present on Admission?: Yes (2) Abnormal LFTs: Present on Admission?: Yes History of Present Illness Chief Complaint: Abdominal pain, rapid AF Primary Care Provider: French Arroyo, 67 y/o M hx HTN, HLD, CKD III, PAF. Presents with palpitations and abdominal pain. The pt was diagnosed with AF 08/2018. He was successfully cardioverted at that time and had not reverted to AF since. He developed tachycardia today and recognized that this was likely AF, presenting to the hospital therefore. He denies CP or SOB. He did however, c/o diffuse abdominal pain over the past 2 weeks. The pt's HR was in the 160s on arrival to the ER. Initial labs were notable for an elevated lipase and elevated LFTs. He denies nausea, vomiting or diarrhea. 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, employed in IT Family: Mother owing to CHF Father at age 101 Allergies Allergy/AdvReac Type Severity Reaction Status Date / Time No Known Allergies Allergy Verified 01/23/19 03:36 Home Medications Home Medications Medication Instructions Recorded Confirmed Type aspirin [Adult Low Dose Aspirin] 81 mg PO .ON HOLD 08/09/18 01/23/19 History lisinopril [Zestril] 20 mg PO DAILY 08/09/18 01/23/19 History apixaban [Eliquis] 5 mg PO BID #60 tab 08/12/18 01/23/19 Rx atorvastatin 40 mg PO HS #30 tab 08/12/18 01/23/19 Rx metoprolol tartrate 25 mg PO BID #60 tab 08/12/18 01/23/19 Rx Past Med/Surg History Medical History HTN (hypertension) (Chronic) Afib CAD (coronary artery disease) CKD (chronic kidney disease) HOCM (hypertrophic obstructive cardiomyopathy) Hyperlipidemia NSTEMI (non-ST elevated myocardial infarction) Surgical History No pertinent past surgical history H/O colonoscopy H/O eye surgery H/O foot surgery Social History Preferred Language: Kiswahili Communication Ability: Effective Beliefs That Will Affect Care: None Current Living Situation: Alone current occupation: IT Feels Safe at Home: Yes Smoking Status: Never smoker Hx Alcohol Use: No Hx Substance Use: No Review of Systems Review of Systems: Gen: Denies fevers, night sweats, rigors, fatigue, malaise, weight loss/gain ENT: Denies congestion, throat pain, hearing loss Eyes: Denies acute visual changes CV: Denies CP, + palpitations Pulmonary: Denies SOB, cough, wheezing GI: Abdominal pain Neuro: Denies acute or unilateral weakness, acute gait impairment, headache or acute visual changes Musculoskeletal: Denies joint pain, inflammation Endocrine: Denies polydipsia, polyuria Skin: Denies acute rashes or ulcers Physical Exam Physical Exam: General: AAO x 3, no distress ENT: No erythema or exudates, no thrush Eyes: CANDY, EOMI Head and neck: Normocephalic, atraumatic, No JVD, neck is supple. Chest/heart: Tachy, irreg, no murmurs Lungs: CTAB, no wheezing or crackles Abdomen: Minimal tenderness to palpation, no RUQ pain Neuro: AAO x 3, speech is clear, no unilateral weakness or loss of sensation, coordination intact Musculoskeletal: No joint inflammation, muscle tenderness, FROM Skin: No acute rashes or ulcers Extremities: No clubbing, cyanosis, edema Results & Data Vital Signs (Past 12 Hours) Vital Signs Temp Pulse Resp BP Pulse Ox 01/23/19 03:41 158 H 21 98 01/23/19 03:37 155 H 108/88 01/23/19 03:27 151 H 24 114/77 95 01/23/19 03:20 140 H 20 83/67 L 95 01/23/19 03:11 143 H 17 97 01/23/19 03:10 138 H 22 104/62 98 01/23/19 03:06 162 H 16 107/62 97 01/23/19 02:51 136 H 19 96 01/23/19 02:50 130 H 15 97/70 L 95 01/23/19 02:40 123 H 20 97/61 L 96 01/23/19 02:30 129 H 16 100/81 95 01/23/19 02:21 139 H 18 80/66 L 96 01/23/19 02:20 153 H 26 H 79/64 L 95 01/23/19 02:04 97.5 F L 73 16 98 PG Care Time/CCT Total # of Minutes Spent Total Time Spent with Patient: Total time spent is greater than 50% in coordination of care (as documented) at patient's floor/unit and/or counseling patient:
[2019-01-23] MEDS ORDERED: SODIUM CHLORIDE 0.9% 1000ML 1,000 ML IV SCH (04:45)
[2019-01-23] MEDS ORDERED: dilTIAZem HCl 125 MG in DEXTROSE 5% 100 ML IV STA (05:39)
[2019-01-23] MEDS ORDERED: IOVERSOL 100ml IV PRN (05:50)
[2019-01-23] MEDS ORDERED: dilTIAZem HCl 125 MG in DEXTROSE 5% 100 ML IV SCH (07:36)
[2019-01-23] MEDS ORDERED: MoRPHine SULFATE 4 MG/ML 1 ML CARP\\VIAL IV PRN (07:36)
[2019-01-23] MEDS ORDERED: dilTIAZem HCl 5 MG/ML 5 ML VIAL IV STA (07:36)
[2019-01-23] MEDS ORDERED: ACETAMINOPHEN 325 MG TAB PO PRN (07:36)
--- NOTE | 2019-01-23 07:37 | XRay Report ---
PA CHEST WITH ABDOMINAL SERIES CLINICAL HISTORY: Palpitations. Nausea. Generalized abdominal pain. FINDINGS: A PA chest radiograph is compared to study dated 08/09/2018. The heart is top normal for projection. Th e mediastinal contour is within normal limits. There is mild bibasilar scarring/atelectasis. No airsp hannah consolidation or large pleural effusion is identified. No pneumothorax is seen. The skeletal stru ctures are osteopenic. The bony thorax is grossly intact. Supine and erect abdominal radiographs are obtained. No prior studies are available for comparison at the time of dictation. There is a nonobstructed abdominal bowel gas pattern. Moderate colonic fecal retention is noted. No evidence of intraperitoneal free air is seen. There are no abnormal abdominal calcifications. Phleboliths are observed in the pelvis. The lumbosacral spine and bony pelvis appear intact. IMPRESSION: 1. No acute cardiopulmonary abnormality. 2. Nonobstructed abdominal bowel gas pattern. Electronically signed by: Saul Aguayo M.D. 01/23/2019 7:36 AM
--- NOTE | 2019-01-23 08:10 | CT Scan Report ---
CT OF THE ABDOMEN AND PELVIS WITH CONTRAST CLINICAL HISTORY: Elevated lipase. Abnormal liver function tests. Possible pancreatic mass. COMPARISON STUDY: Right upper quadrant ultrasound January 23, 2019. TECHNIQUE: Following IV administration of 92 mL of Optiray-320, axial images of the abdomen and pelvi s were obtained from the lung bases to the proximal femurs. Images were reviewed in the axial, sagitt al, and coronal planes. IV contrast was administered without complication. Automated exposure contro l was utilized for the study. A dose lowering technique was utilized adhering to the principles of A DOMINGO. CT DOSE: 323.64 mGy.cm FINDINGS: Imaged portions of the lower chest demonstrate a trace right pleural effusion. There are mu ltiple hepatic cysts. A 2.5 cm echogenic right hepatic lobe lesion favors a hemangioma. This correspo nds to one of the echogenic lesions by ultrasound. The spleen, adrenal glands are unremarkable. The r ight kidney is markedly atrophic. There is mild left collecting system dilatation with mild perinephr ic infiltration. The gallbladder is mildly distended. There is no pancreatic ductal dilatation. There is mild dilatation of the common bile duct which measures 8 mm. There is apparent abrupt caliber emmanuelle nge of the common bile duct at the level the pancreatic head. There is no pancreatic ductal dilatatio n. There is mild peripancreatic infiltration. There is a subtle 4.1 cm hypodense focus within the cho creatic head on axial image 142 of 451. This likely corresponds to the pancreatic abnormality by ultr asound. A prominent portacaval lymph node measures 1.2 cm in short axis diameter. The main, left and right portal veins are patent. Superior mesenteric artery is patent. There is trace pelvic ascites. C aliber and wall thickness of small and large bowel are normal. The appendix is normal. There is moder ate plaque of the abdominal aorta which is normal in caliber. There is no pelvic lymphadenopathy. IMPRESSION: 1. Mild peripancreatic infiltration which favors pancreatitis. This likely reflects interstitial desire atous pancreatitis, however autoimmune pancreatitis could have this appearance. Findings were discuss ed with the physician caring for the patient at time of dictation. 2. Subtle 4.1 cm hypoechoic density focus within the pancreatic head. This was more concerning for ad enocarcinoma by ultrasound. By CT, this is indeterminate and differential considerations include panc reatitis and pancreatic adenocarcinoma. Mild dilatation of the common bile duct with abrupt caliber c hange. No pancreatic ductal dilatation. A pancreatic protocol MRI may be of benefit in further evalua tion. GI consultation for consideration for endoscopic ultrasound might be considered. 3. Mildly distended gallbladder. Acute cholecystitis cannot be excluded. 4. 2.5 cm right hepatic lobe hemangioma. Several hepatic cysts. No suspicious hepatic lesions by CT. 5. Marked atrophy of the right kidney. Mild left collecting system dilatation. Electronically signed by: Ochoa Calle M.D. 01/23/2019 8:09 AM
--- NOTE | 2019-01-23 08:10 | Ultrasound Report ---
US gallbladder CLINICAL HISTORY: elevated lft's/lipse COMPARISON STUDY: Abdominal series January 23, 2019. FINDINGS: Multiple hepatic cysts are noted. Liver morphology is normal. Mild dilatation of the common bile duct is noted, measuring 8 mm in caliber. Note is made of several echogenic hepatic lesions, th e largest is a 2.3 cm right hepatic lobe lesion. The gallbladder is distended. The wall is mildly thi ckened with gallbladder wall edema. There is trace pericholecystic fluid. No gallstones are identifie d. Unable to assess for sonographic Beauchamp sign in this patient. Note is made of a 4.5 cm hypoechoic masslike abnormality within the pancreatic head. Pancreatic duct is at the upper limits of normal for caliber, measuring 3 mm. The right kidney is atrophic. Possible right renal lesion is likely artifac tual. IMPRESSION: 1. 4.5 cm hypoechoic mass-like abnormality within the pancreatic head. A pancreatic neoplasm is the d iagnosis of exclusion. A CT of the abdomen with contrast is recommended. Findings were discussed with the physician caring for the patient at time of dictation. 2. Minimal dilatation of the common bile duct, measuring 8 mm. No definite pancreatic ductal dilatati on. 3. Distended gallbladder with mild gallbladder wall thickening. No gallstones. These findings are non specific and acute cholecystitis cannot be excluded. 4. A few echogenic hepatic lesions which favor hemangiomas. Several hepatic cysts. 5. Atrophic right kidney. Electronically signed by: Ochoa Calle M.D. 01/23/2019 8:09 AM
[2019-01-23] MEDS ORDERED: LISINOPRIL 20 MG TAB PO SCH (09:00)
[2019-01-23] MEDS ORDERED: APIXABAN 5 MG TABLET PO SCH (09:00)
[2019-01-23] MEDS: NSS + 20MEQ KCL 20 MEQ/1,000 ML BAG IV SCH (09:49)
--- NOTE | 2019-01-23 11:49 | Gastrointestinal Consultation ---
Date of Consultation January 23, 2019 Assessment & Plan (1) Pancreatic mass: 68 year old male w/ history of HTN, HLD, CKD III, PAF on ASA, coumadin last dose was 01/22/19 presenting with two weeks of upper abdominal pain, nausea/vomiting and inability to toelrate PO. ABD US and CT imaging concerning for acute pancreatitis, pancreatic head mass, mild dilatation of the common bile duct with abrupt caliber change. He has markedly elevated lipase and LFTs - Please keep NPO - Will tentatively plan for ERCP today - Would continue to Hold ASA, Eliquis if clinically able - IV anti-emetics PRN - IV analgesia PRN - Trend LFTs, lipase - Will need EGD/EUS within the week if he chooses to go home Thank you for allowing us to participate in the care of this patient. Please call with any acute changes, questions or concerns. Please see addendum below with additional recommendation from my supervising physician. Present on Admission?: Yes Supervising Physician Co-Signing Physician Notes I have personally seen and examined the patient with ZONIA Arriola. Her note reflects my exam and findings. I agree with her impression and plan. Given concerns for biliary obstruction will arrange ERCP for drainage. Ashvin Álvarez M.D. History of Present Illness Reason for Consultation: LFT abnormality Requesting Physician: Nii Attending Physician: Black Bales MD History of Present Illness 68 year old male with history of HTN, HLD, CKD III, PAF on ASA, coumadin last dose was 01/22/19 who presented through the ED w concern for afib and persistent abdominal pain. Pt was seen and evaluated, chart reviewed. Pt notes two weeks worth of upper abdominal pain, post-prandial w/ mild nausea w/p vomiting. This is associated with decreased appetite and early satiety. He notes a mild weight loss during this two week period but no prior weight loss. He has noted a change in stool w/ soft, light colored stool and greasy stools. No black/bloody stools. No urinary changes, denies dark urine. He denies fever, chills, CP, SOB but was mildly febrile this AM. + family history of panc CA CT ABD/Pelvis: Mild peripancreatic infiltration which favors pancreatitis. This likely reflects interstitial edematous pancreatitis, however autoimmune pancreatitis could have this appearance. Findings were discussed with the ysician caring for the patient at time of dictation.Subtle 4.1 cm hypoechoic density focus within the pancreatic head. This was more concerning for adenocarcinoma by ultrasound. By CT, this is indeterminate and differential considerations include pancreatitis and pancreatic adenocarcinoma. Mild dilatation of the common bile duct with abrupt caliber change. No pancreatic ductal dilatation. A pancreatic protocol MRI may be of benefit in further evaluation. GI consultation for consideration for endoscopic ultrasound might be considered.Mildly distended gallbladder. Acute cholecystitis cannot be excluded. 2.5 cm right hepatic lobe hemangioma. Several hepatic cysts. No suspicious hepatic lesions by CT. Marked atrophy of the right kidney. Mild left collecting system dilatation. ABD US: 4.5 cm hypoechoic mass-like abnormality within the pancreatic head. A pancreatic neoplasm is the diagnosis of exclusion. A CT of the abdomen with contrast is recommended. Findings were discussed with the physician caring for the patient at time of dictation. Minimal dilatation of the common bile duct, measuring 8 mm. No definite pancreatic ductal dilatation. Distended gallbladder with mild gallbladder wall thickening. No gallstones. These findings are nonspecific and acute cholecystitis cannot be excluded.A few echogenic hepatic lesions which favor hemangiomas. Several hepatic cysts. Atrophic right kidney. Allergies Allergy/AdvReac Type Severity Reaction Status Date / Time No Known Allergies Allergy Verified 01/23/19 03:36 Home Medications Home Medications Medication Instructions Recorded Confirmed Type aspirin [Adult Low Dose Aspirin] 81 mg PO .ON HOLD 08/09/18 01/23/19 History lisinopril [Zestril] 20 mg PO DAILY 08/09/18 01/23/19 History apixaban [Eliquis] 5 mg PO BID #60 tab 08/12/18 01/23/19 Rx atorvastatin 40 mg PO HS #30 tab 08/12/18 01/23/19 Rx metoprolol tartrate 25 mg PO BID #60 tab 08/12/18 01/23/19 Rx Patient History Medical History HTN (hypertension) (Chronic) Afib CAD (coronary artery disease) CKD (chronic kidney disease) HOCM (hypertrophic obstructive cardiomyopathy) Hyperlipidemia NSTEMI (non-ST elevated myocardial infarction) Surgical History No pertinent past surgical history H/O colonoscopy H/O eye surgery H/O foot surgery Social History Preferred Language: Japanese Communication Ability: Effective Refrigeration Brazer/Solderer Required: No Beliefs That Will Affect Care: None Current Living Situation: Alone current occupation: IT Other Information That Helps Us Care for You: No Feels Safe at Home: Yes Safety Concerns: Feels Safe At This Time Smoking Status: Never smoker Hx Alcohol Use: Yes Alcohol Intake Frequency Comment: occasional Hx Substance Use: No Review of Systems Constitutional: no fever, no chills and no fatigue Respiratory: no cough, no dyspnea and no wheezing Cardiovascular: no chest pain, no radiating jaw, neck or arm pain and no dyspnea on exertion Gastrointestinal: + abdominal pain, + early satiety, + nausea, + vomiting, + c hange in bowel habits and + change in stools; no heartburn, no coffee ground emesis, no hematemesis, no dysphagia, no diarrhea/loose stools, no blood in stools and no melena Physical Exam Constitutional: WD/WN, vitals as above no acute distress and not ill appearing Neck: trachea midline Respiratory: normal respiratory effort, lungs clear to auscultation Cardiovascular: RRR, no murmur, no edema Gastrointestinal (Abdomen): Percussion/Palpation: + abdomen tender (upper abd pain w/ palpation) and abdomen soft; no guarding, abdomen not rigid, no abdominal mass and no ascites Skin: no rashes, warm and dry Results & Data Vital Signs (Past 12 Hours) Vital Signs Temp Pulse Pulse Resp BP BP Pulse Ox 01/23/19 11:42 37 C 72 18 140/75 96 01/23/19 07:32 37.8 C H 80 18 121/77 96 01/23/19 07:14 136 H 18 100/67 97 01/23/19 06:36 132 H 18 123/74 96 01/23/19 06:32 149 H 17 98/65 L 94 01/23/19 06:30 124 H 20 96 01/23/19 06:18 139 H 19 110/73 97 01/23/19 06:17 135 H 18 89/70 L 01/23/19 05:49 170 H 25 H 112/94 01/23/19 05:20 138 H 27 H 91/75 L 95 01/23/19 05:10 136 H 17 90/74 L 97 01/23/19 05:03 144 H 20 96/76 L 97 01/23/19 04:50 148 H 29 H 115/59 L 97 01/23/19 04:40 123 H 12 94/62 L 98 01/23/19 04:33 110 H 25 H 100/81 98 01/23/19 04:30 142 H 6 L 77/62 L 97 01/23/19 04:22 140 H 23 88/56 L 93 01/23/19 04:21 128 H 28 H 96 01/23/19 04:20 124 H 32 H 74/65 L 96 01/23/19 04:10 131 H 19 87/72 L 97 01/23/19 04:01 142 H 21 93/63 L 90 01/23/19 03:50 102/76 01/23/19 03:41 158 H 21 98 01/23/19 03:37 155 H 108/88 01/23/19 03:27 151 H 24 114/77 95 01/23/19 03:20 140 H 20 83/67 L 95 01/23/19 03:11 143 H 17 97 01/23/19 03:10 138 H 22 104/62 98 01/23/19 03:06 162 H 16 107/62 97 01/23/19 02:51 136 H 19 96 01/23/19 02:50 130 H 15 97/70 L 95 01/23/19 02:40 123 H 20 97/61 L 96 01/23/19 02:30 129 H 16 100/81 95 01/23/19 02:21 139 H 18 80/66 L 96 01/23/19 02:20 153 H 26 H 79/64 L 95 01/23/19 02:04 36.4 C L 73 16 98 Laboratory Results 01/23/19 01/23/19 01/23/19 Range/Units 04:06 03:37 02:14 WBC (4.8-10.8) K/uL RBC (4.7-6.1) M/uL Hgb (14.0-18.0) g/dL Hct (42-52) % MCV (80-100) fL MCH (25-34) pg MCHC (32-36) g/dL RDW Std Deviation (36.4-46.3) fL RDW Coeff of Raul (11.5-14.5) % Plt Count (130-400) K/uL MPV (7.4-10.4) fL Immature Gran % (Auto) % Neut % (Auto) % Lymph % (Auto) % [place] % (Auto) % Eos % (Auto) % Baso % (Auto) % Immature Gran # (Auto) (0.00-0.02) K/uL Neut # (Auto) (1.4-6.5) K/uL Lymph # (Auto) (1.2-3.4) K/uL [place] # (Auto) (0.11-0.59) K/uL Eos # (Auto) (0-0.5) K/uL Baso # (Auto) (0-0.2) K/uL Sodium 140 (136-145) mmol/L Potassium 3.7 (3.5-5.1) mmol/L Chloride 106 (98-107) mmol/L Carbon Dioxide 25 (21-32) mmol/L Anion Gap 9.0 (3-11) BUN 16 (7-18) mg/dl Creatinine 1.69 H (0.6-1.4) mg/dl Est Cr Clr Drug Dosing 36.7 ml/min Est GFR ( Amer) 46.7 Est GFR (Non-Af Amer) 40.3 BUN/Creatinine Ratio 9.5 L (10-20) Glucose 140 H (70-99) mg/dl Calcium 9.3 (8.5-10.1) mg/dl Total Bilirubin 1.9 H (0.2-1) mg/dl AST 447 H (15-37) U/L ALT 929 H (12-78) U/L Alkaline Phosphatase 401 H (45-117) U/L NT-Pro-B Natriuret Pep 328 (0-900) pg/ml Total Protein 7.3 (6.4-8.2) gm/dl Albumin 3.4 (3.4-5.0) gm/dl Globulin 3.9 (2.5-4.0) gm/dl Albumin/Globulin Ratio 0.9 (0.9-2) Lipase 2310 H (73-393) U/L TSH 2.560 (0.300-4.500) uIu/ml POC Urine pH Not Reportable POC Urine Protein Trace H (Negative) POC Ur Glucose (UA) Normal (Normal) POC Urine Ketones Negative (Negative) POC Urine Blood Negative (Negative) POC Urine Nitrite Negative (Negative) POC Urine Bilirubin Negative (Negative) POC Urine Urobilinogen Normal (Normal) POC U Leukocyte Esteras Negative (Negative) Ethyl Alcohol mg/dL < 3.0 (0-3) mg/dl 01/23/19 Range/Units 02:14 WBC 10.52 (4.8-10.8) K/uL RBC 5.20 (4.7-6.1) M/uL Hgb 16.4 (14.0-18.0) g/dL Hct 46.6 (42-52) % MCV 89.6 (80-100) fL MCH 31.5 (25-34) pg MCHC 35.2 (32-36) g/dL RDW Std Deviation 40.3 (36.4-46.3) fL RDW Coeff of Raul 12.4 (11.5-14.5) % Plt Count 322 (130-400) K/uL MPV 10.5 H (7.4-10.4) fL Immature Gran % (Auto) 0.3 % Neut % (Auto) 69.7 % Lymph % (Auto) 20.4 % [place] % (Auto) 8.2 % Eos % (Auto) 1.2 % Baso % (Auto) 0.2 % Immature Gran # (Auto) 0.03 H (0.00-0.02) K/uL Neut # (Auto) 7.33 H (1.4-6.5) K/uL Lymph # (Auto) 2.15 (1.2-3.4) K/uL [place] # (Auto) 0.86 H (0.11-0.59) K/uL Eos # (Auto) 0.13 (0-0.5) K/uL Baso # (Auto) 0.02 (0-0.2) K/uL Sodium (136-145) mmol/L Potassium (3.5-5.1) mmol/L Chloride (98-107) mmol/L Carbon Dioxide (21-32) mmol/L Anion Gap (3-11) BUN (7-18) mg/dl Creatinine (0.6-1.4) mg/dl Est Cr Clr Drug Dosing ml/min Est GFR ( Amer) Est GFR (Non-Af Amer) BUN/Creatinine Ratio (10-20) Glucose (70-99) mg/dl Calcium (8.5-10.1) mg/dl Total Bilirubin (0.2-1) mg/dl AST (15-37) U/L ALT (12-78) U/L Alkaline Phosphatase (45-117) U/L NT-Pro-B Natriuret Pep (0-900) pg/ml Total Protein (6.4-8.2) gm/dl Albumin (3.4-5.0) gm/dl Globulin (2.5-4.0) gm/dl Albumin/Globulin Ratio (0.9-2) Lipase (73-393) U/L TSH (0.300-4.500) uIu/ml POC Urine pH POC Urine Protein (Negative) POC Ur Glucose (UA) (Normal) POC Urine Ketones (Negative) POC Urine Blood (Negative) POC Urine Nitrite (Negative) POC Urine Bilirubin (Negative) POC Urine Urobilinogen (Normal) POC U Leukocyte Esteras (Negative) Ethyl Alcohol mg/dL (0-3) mg/dl
[2019-01-23] MEDS: METOPROLOL TARTRATE 25 MG TAB PO SCH (11:52)
--- NOTE | 2019-01-23 12:35 | Cardiology Consultation ---
Date of Consultation January 23, 2019 Assessment & Plan (1) Atrial fibrillation with RVR: The patient had 1 prior episode of atrial fibrillation which required cardioversion. He has actually done very well over the past 5 months without any documented episodes high heart rates or evidence of atrial fibrillation. Did have outpatient Holter monitoring shortly after initiation of his current medical regimen. This revealed an average heart rate of 61 beats per minute. There were no significant pauses but he did have some relative bradycardia at times. This morning he returned to a sinus rhythm. It is very possible that with his gastrointestinal disturbance any associated dehydration he transition back into atrial fibrillation. He was hydrated overnight with resolution of his arrhythmia. He has been appropriately anticoagulated. However, he is frustrated by the twice daily dosing of Eliquis and could easily be transition to Xarelto 20 milligrams daily I do not think there is any indication for rhythm control. He has had only 2 documented episodes over 5 months. I think would continue to monitor him for recurrence his and consider antiarrhythmic therapy for frequent recurrent episodes of atrial fibrillation. While his recorder trouble is probably not ideal when he is in atrial fibrillation, I do not believe we need to be more aggressive at this point. He has relative bradycardia at baseline and infrequent episodes currently. Again, he is frustrated by the twice daily dosing of metoprolol tartrate and could easily be Lisa incision to metoprolol succinate at an equivalent dose. (2) Left ventricular outflow tract obstruction: He was noted to have some intracavitary obstruction on echocardiography. However, he does not report symptoms of limiting dyspnea or other exertional symptoms. He has not experienced syncope. He is on a beta-mikie and this should be continued. (3) NSTEMI (non-ST elevated myocardial infarction): At the time of his last admission with elevated ventricular rates in atrial fibrillation he did have elevated cardiac biomarkers. Since that time he did undergo stress testing which did not reveal any evidence of inducible ischemia. He has not report symptoms of angina generally. He did not have chest pain associated with his current symptom. I do not believe there is any need for an additional evaluation currently. He should be continued on his beta-mikie and systemic anticoagulation. Patient also takes it daily anti- lipid agent in this should be continued. History of Present Illness Reason for Consultation: Atrial fibrillation Requesting Physician: Curt Attending Physician: Black Bales MD History of Present Illness The patient is a 68-year-old gentleman with a history of atrial fibrillation having previously undergone cardioversion in August of 2018. Recently, the patient has been experiencing symptoms of gastrointestinal upset. He states that with eating, he will develop some abdominal discomfort and bloating. Originally this seems to happen more commonly with fatty foods and was not severe or prolonged in nature. However more recently he has had difficulty with eating any foods. The symptoms are also more severe and can last several hours before they resolved. He has not had associated vomiting. He has had some change in his bowel habits in stool consistency. As result, he has lost 10 pounds by report and has had less oral intake. He feels that he may have been dehydrated recently. This morning the patient was a woken by a sense of palpitations. His personal heart rate monitor revealed a elevated heart rate. He had some associated dizziness but no chest discomfort or dyspnea. Due to the persistently high heart rate and mild dizziness he contacted a friend who drove him to the hospital. He was discovered to have atrial fibrillation and associated high rates. The patient was placed on a diltiazem infusion and admitted to the hospital. This morning the patient returned to a sinus rhythm. He had resolution of his palpitations and lightheadedness at that time. Currently he is feeling well. He has no abdominal complaints at this time. He states that he has been able to maintain his usual level of activity which involves regular exercise. This generally does not produce symptoms of dyspnea or chest discomfort. Allergies Allergy/AdvReac Type Severity Reaction Status Date / Time No Known Allergies Allergy Verified 01/23/19 03:36 Home Medications Home Medications Medication Instructions Recorded Confirmed Type aspirin [Adult Low Dose Aspirin] 81 mg PO .ON HOLD 08/09/18 01/23/19 History lisinopril [Zestril] 20 mg PO DAILY 08/09/18 01/23/19 History apixaban [Eliquis] 5 mg PO BID #60 tab 08/12/18 01/23/19 Rx atorvastatin 40 mg PO HS #30 tab 08/12/18 01/23/19 Rx metoprolol tartrate 25 mg PO BID #60 tab 08/12/18 01/23/19 Rx Patient History Medical History HTN (hypertension) (Chronic) Afib CAD (coronary artery disease) CKD (chronic kidney disease) HOCM (hypertrophic obstructive cardiomyopathy) Hyperlipidemia NSTEMI (non-ST elevated myocardial infarction) Surgical History No pertinent past surgical history H/O colonoscopy H/O eye surgery H/O foot surgery Social History Preferred Language: Martiniquais Communication Ability: Effective Tap And Die Maker Technician Required: No Beliefs That Will Affect Care: None Current Living Situation: Alone current occupation: IT Other Information That Helps Us Care for You: No Feels Safe at Home: Yes Safety Concerns: Feels Safe At This Time Smoking Status: Never smoker Hx Alcohol Use: Yes Alcohol Intake Frequency Comment: occasional Hx Substance Use: No Review of Systems Review of Systems: All systems reviewed & are unremarkable except as noted in HPI & below No recent fevers or chills. No lower extremity edema. Patient monitors his heart rate regularly and has not noticed any elevated heart rate readings until this morning. Physical Exam Physical Exam: The patient is alert and oriented. Mood and affect appeared normal. He answered all questions appropriately. HEENT: Pupils are equal and reactive to light and accommodation. Extraocular movements are intact. The sclerae are anicteric. Neuro: Cranial nerves intact Neck: Patient's neck is supple. He has palpable carotid pulses bilaterally without bruits on auscultation. There is no evidence of jugular venous distention. The thyroid is not enlarged. Lungs: Clear to auscultation bilaterally. He has good air movement without use of accessory muscles. No rales wheezes or rhonchi. Cardiac: Heart demonstrates a regular rate and rhythm. Normal S1 and S2. No murmurs on examination. Pulses: The patient has palpable radial pulses bilaterally that are equal in i ntensity Extremities: There was no evidence of hypoperfusion. There is no cyanosis or clubbing. There is no edema. Skin: I did not appreciate any rashes on examination today. Results & Data Vital Signs (Past 12 Hours) Vital Signs Temp Pulse Pulse Resp BP BP Pulse Ox 01/23/19 11:42 37 C 72 18 140/75 96 01/23/19 07:32 37.8 C H 80 18 121/77 96 01/23/19 07:14 136 H 18 100/67 97 01/23/19 06:36 132 H 18 123/74 96 01/23/19 06:32 149 H 17 98/65 L 94 01/23/19 06:30 124 H 20 96 01/23/19 06:18 139 H 19 110/73 97 01/23/19 06:17 135 H 18 89/70 L 01/23/19 05:49 170 H 25 H 112/94 01/23/19 05:20 138 H 27 H 91/75 L 95 01/23/19 05:10 136 H 17 90/74 L 97 01/23/19 05:03 144 H 20 96/76 L 97 01/23/19 04:50 148 H 29 H 115/59 L 97 01/23/19 04:40 123 H 12 94/62 L 98 01/23/19 04:33 110 H 25 H 100/81 98 01/23/19 04:30 142 H 6 L 77/62 L 97 01/23/19 04:22 140 H 23 88/56 L 93 01/23/19 04:21 128 H 28 H 96 01/23/19 04:20 124 H 32 H 74/65 L 96 01/23/19 04:10 131 H 19 87/72 L 97 01/23/19 04:01 142 H 21 93/63 L 90 01/23/19 03:50 102/76 01/23/19 03:41 158 H 21 98 01/23/19 03:37 155 H 108/88 01/23/19 03:27 151 H 24 114/77 95 01/23/19 03:20 140 H 20 83/67 L 95 01/23/19 03:11 143 H 17 97 01/23/19 03:10 138 H 22 104/62 98 01/23/19 03:06 162 H 16 107/62 97 01/23/19 02:51 136 H 19 96 01/23/19 02:50 130 H 15 97/70 L 95 01/23/19 02:40 123 H 20 97/61 L 96 01/23/19 02:30 129 H 16 100/81 95 01/23/19 02:21 139 H 18 80/66 L 96 01/23/19 02:20 153 H 26 H 79/64 L 95 01/23/19 02:04 36.4 C L 73 16 98 Laboratory Results Abnormal Lab Results 01/23/19 01/23/19 01/23/19 02:14 02:14 03:37 WBC 10.52 RBC 5.20 Hgb 16.4 Hct 46.6 MCV 89.6 MCH 31.5 MCHC 35.2 RDW Std Deviation 40.3 RDW Coeff of Raul 12.4 Plt Count 322 MPV 10.5 H Immature Gran % (Auto) 0.3 Neut % (Auto) 69.7 Lymph % (Auto) 20.4 [place] % (Auto) 8.2 Eos % (Auto) 1.2 Baso % (Auto) 0.2 Immature Gran # (Auto) 0.03 H Neut # (Auto) 7.33 H Lymph # (Auto) 2.15 [place] # (Auto) 0.86 H Eos # (Auto) 0.13 Baso # (Auto) 0.02 Sodium 140 Potassium 3.7 Chloride 106 Carbon Dioxide 25 Anion Gap 9.0 BUN 16 Creatinine 1.69 H Est Cr Clr Drug Dosing 36.7 Est GFR ( Amer) 46.7 Est GFR (Non-Af Amer) 40.3 BUN/Creatinine Ratio 9.5 L Glucose 140 H Calcium 9.3 Total Bilirubin 1.9 H AST 447 H ALT 929 H Alkaline Phosphatase 401 H NT-Pro-B Natriuret Pep 328 Total Protein 7.3 Albumin 3.4 Globulin 3.9 Albumin/Globulin Ratio 0.9 Lipase 2310 H TSH 2.560 POC Urine pH Not Reportable POC Urine Protein Trace H POC Ur Glucose (UA) Normal POC Urine Ketones Negative POC Urine Blood Negative POC Urine Nitrite Negative POC Urine Bilirubin Negative POC Urine Urobilinogen Normal POC U Leukocyte Esteras Negative Ethyl Alcohol mg/dL 01/23/19 04:06 WBC RBC Hgb Hct MCV MCH MCHC RDW Std Deviation RDW Coeff of Raul Plt Count MPV Immature Gran % (Auto) Neut % (Auto) Lymph % (Auto) [place] % (Auto) Eos % (Auto) Baso % (Auto) Immature Gran # (Auto) Neut # (Auto) Lymph # (Auto) [place] # (Auto) Eos # (Auto) Baso # (Auto) Sodium Potassium Chloride Carbon Dioxide Anion Gap BUN Creatinine Est Cr Clr Drug Dosing Est GFR ( Amer) Est GFR (Non-Af Amer) BUN/Creatinine Ratio Glucose Calcium Total Bilirubin AST ALT Alkaline Phosphatase NT-Pro-B Natriuret Pep Total Protein Albumin Globulin Albumin/Globulin Ratio Lipase TSH POC Urine pH POC Urine Protein POC Ur Glucose (UA) POC Urine Ketones POC Urine Blood POC Urine Nitrite POC Urine Bilirubin POC Urine Urobilinogen POC U Leukocyte Esteras Ethyl Alcohol mg/dL < 3.0 Diagnostic Findings Chest x-ray the time admission not reveal any acute cardiopulmonary findings Abdominal ultrasound was suggestive of [address] scan of the abdomen did not confirm any lesion ECG Additional Comments: Atrial fibrillation with rapid ventricular response
--- NOTE | 2019-01-23 18:42 | Family Medicine Progress Note ---
Date of Service January 23, 2019 Assessment & Plan (1) Atrial fibrillation with RVR: (1) Atrial fibrillation with RVR: 67 y/o M hx HTN, HLD, CKD III, PAF. Presents with palpitations and abdominal pain. The pt was diagnosed with AF 08/2018. He was successfully cardioverted at that time and had not reverted to AF since. He developed tachycardia today and recognized that this was likely AF, presenting to the hospital therefore. He denies CP or SOB. He did however, c/o diffuse abdominal pain over the past 2 weeks. The pt's HR was in the 160s on arrival to the ER. Initial labs were notable for an elevated lipase and elevated LFTs. He denies nausea, vomiting or diarrhea. 1) Rapid AF - Patient has a history of atrial fibrillation see above. He believes this episode of atrial fibrillation was brought on secondary to dehydration. Patient was placed on diltiazem drip overnight and provided intravenous fluid resuscitation. This morning his atrial fibrillation spontaneously converted to normal sinus rhythm. She continues to remain in normal sinus rhythm, having no signs or symptoms of ACS. Denies chest pressure, denies chest pain, denies shortness of breath -Cardiology was consulted per chief growth officer -They do not feel significant rhythm control is appropriate presently -Consider converting 25 mg twice daily IR metoprolol to ER 50 mg metoprolol succinate -Can consider transitioning from twice daily Eliquis to daily Xarelto 20 mg 2) Abnormal LFTs/abdominal pain CMP and other laboratory findings are concerning for pancreatitis. CT scan is consistent with pancreatitis unclear etiology autoimmune versus mass versus stone. Regardless the laboratory values indicate an obstruction type pattern. Ultrasound imaging was more concerning for a mass of the pancreatic head. Given that the patient has a strong family history of pancreatic cancer. It is pito t that this is further worked up expeditiously -GI was consulted -Patient is added on for an ERCP today, as of 7 PM he has not received the ERCP may have to be delayed till tomorrow -Pending the results of the ERCP patient may need an EUS. GI recommends the patient remain inpatient over the weekend to facilitate scheduling of EUS for Saturday -Radiology recommends abdominal MRI with and without contrast after ERCP -IV antiemetics PRN, IV analgesia PRN -Trend LFTs and lipase 3) CKD creatinine elevated on admission to 1.69. -Patient has been maintained on IV fluids, continue to trend daily CMP 4) HTN -Continue metoprolol -Holding lisinopril may resume when YENIFER resolves 5) HLD - can continue Atorvastatin FENa: N.p.o. for procedure Code Status: Full code DVT PPX: Mary Alicequis Dispo: MedSurg with telemetry Supervising Physician Co-Signing Physician Notes Attending attestation Pt seen and examined in concert with Dr. Vasques. In agreement with the documented findings as noted in the resident documentation with any exceptions or additions as noted here. Resolution of presenting nausea, palpitations and fatigue. On examination, S1/S2 nl RRR no MCG. CTAB. Abd NT/ND BS+ve. Abnormality on GI imaging - concerning for mass v. atypical stone presentation - gastroenterology consultation appreciated - pending ERCP and subsequent MR abdomen as recommended by radiology, with potential f/u EUS Else see resident documentation as noted. Subjective Patient resting in bed comfortably this morning in no acute distress. Reports no significant interval history since admission. Patient has been n.p.o. today for ERCP, he has an add-on in the end of the day as a 7:00 this evening he has not received the procedure. Patient does report a family history of pancreatic cancer. Other than that patient has been tolerating his diet, voiding, stooling , no acute distress. All questions answered no acute concerns. Physical Exam Physical Exam: General: No acute distress HEENT: Normocephalic atraumatic Neck: Normal to visual inspection, negative JVD Cardiac: Regular rate and rhythm, normal S1 normal S2, I did not appreciate any murmurs rubs or gallops, negative pedal edema, negative calf tenderness Respiratory: CTA BL, no no wheezes, rales, rhonchi GI: Normal bowel sounds, soft, nontender, nondistended MSK: Moves all extremities Skin: No new rashes Neuro: Alert and oriented Psych: Calm cooperative Results & Data Vital Signs (Past 12 Hours) Vital Signs Temp Pulse Pulse Resp BP BP Pulse Ox 01/23/19 07:32 37.8 C H 80 18 121/77 96 01/23/19 07:14 136 H 18 100/67 97 01/23/19 06:36 132 H 18 123/74 96 01/23/19 06:32 149 H 17 98/65 L 94 01/23/19 06:30 124 H 20 96 01/23/19 06:18 139 H 19 110/73 97 01/23/19 06:17 135 H 18 89/70 L 01/23/19 05:49 170 H 25 H 112/94 01/23/19 05:20 138 H 27 H 91/75 L 95 01/23/19 05:10 136 H 17 90/74 L 97 01/23/19 05:03 144 H 20 96/76 L 97 01/23/19 04:50 148 H 29 H 115/59 L 97 01/23/19 04:40 123 H 12 94/62 L 98 01/23/19 04:33 110 H 25 H 100/81 98 01/23/19 04:30 142 H 6 L 77/62 L 97 01/23/19 04:22 140 H 23 88/56 L 93 01/23/19 04:21 128 H 28 H 96 01/23/19 04:20 124 H 32 H 74/65 L 96 01/23/19 04:10 131 H 19 87/72 L 97 01/23/19 04:01 142 H 21 93/63 L 90 01/23/19 03:50 102/76 01/23/19 03:41 158 H 21 98 01/23/19 03:37 155 H 108/88 01/23/19 03:27 151 H 24 114/77 95 01/23/19 03:20 140 H 20 83/67 L 95 01/23/19 03:11 143 H 17 97 01/23/19 03:10 138 H 22 104/62 98 01/23/19 03:06 162 H 16 107/62 97 01/23/19 02:51 136 H 19 96 01/23/19 02:50 130 H 15 97/70 L 95 01/23/19 02:40 123 H 20 97/61 L 96 01/23/19 02:30 129 H 16 100/81 95 01/23/19 02:21 139 H 18 80/66 L 96 01/23/19 02:20 153 H 26 H 79/64 L 95 01/23/19 02:04 36.4 C L 73 16 98 Laboratory Results 01/23/19 01/23/19 01/23/19 Range/Units 04:06 03:37 02:14 WBC (4.8-10.8) K/uL RBC (4.7-6.1) M/uL Hgb (14.0-18.0) g/dL Hct (42-52) % MCV (80-100) fL MCH (25-34) pg MCHC (32-36) g/dL RDW Std Deviation (36.4-46.3) fL RDW Coeff of Raul (11.5-14.5) % Plt Count (130-400) K/uL MPV (7.4-10.4) fL Immature Gran % (Auto) % Neut % (Auto) % Lymph % (Auto) % [place] % (Auto) % Eos % (Auto) % Baso % (Auto) % Immature Gran # (Auto) (0.00-0.02) K/uL Neut # (Auto) (1.4-6.5) K/uL Lymph # (Auto) (1.2-3.4) K/uL [place] # (Auto) (0.11-0.59) K/uL Eos # (Auto) (0-0.5) K/uL Baso # (Auto) (0-0.2) K/uL Sodium 140 (136-145) mmol/L Potassium 3.7 (3.5-5.1) mmol/L Chloride 106 (98-107) mmol/L Carbon Dioxide 25 (21-32) mmol/L Anion Gap 9.0 (3-11) BUN 16 (7-18) mg/dl Creatinine 1.69 H (0.6-1.4) mg/dl Est Cr Clr Drug Dosing 36.7 ml/min Est GFR ( Amer) 46.7 Est GFR (Non-Af Amer) 40.3 BUN/Creatinine Ratio 9.5 L (10-20) Glucose 140 H (70-99) mg/dl Calcium 9.3 (8.5-10.1) mg/dl Total Bilirubin 1.9 H (0.2-1) mg/dl AST 447 H (15-37) U/L ALT 929 H (12-78) U/L Alkaline Phosphatase 401 H (45-117) U/L NT-Pro-B Natriuret Pep 328 (0-900) pg/ml Total Protein 7.3 (6.4-8.2) gm/dl Albumin 3.4 (3.4-5.0) gm/dl Globulin 3.9 (2.5-4.0) gm/dl Albumin/Globulin Ratio 0.9 (0.9-2) Lipase 2310 H (73-393) U/L TSH 2.560 (0.300-4.500) uIu/ml POC Urine pH Not Reportable POC Urine Protein Trace H (Negative) POC Ur Glucose (UA) Normal (Normal) POC Urine Ketones Negative (Negative) POC Urine Blood Negative (Negative) POC Urine Nitrite Negative (Negative) POC Urine Bilirubin Negative (Negative) POC Urine Urobilinogen Normal (Normal) POC U Leukocyte Esteras Negative (Negative) Ethyl Alcohol mg/dL < 3.0 (0-3) mg/dl 01/23/19 Range/Units 02:14 WBC 10.52 (4.8-10.8) K/uL RBC 5.20 (4.7-6.1) M/uL Hgb 16.4 (14.0-18.0) g/dL Hct 46.6 (42-52) % MCV 89.6 (80-100) fL MCH 31.5 (25-34) pg MCHC 35.2 (32-36) g/dL RDW Std Deviation 40.3 (36.4-46.3) fL RDW Coeff of Raul 12.4 (11.5-14.5) % Plt Count 322 (130-400) K/uL MPV 10.5 H (7.4-10.4) fL Immature Gran % (Auto) 0.3 % Neut % (Auto) 69.7 % Lymph % (Auto) 20.4 % [place] % (Auto) 8.2 % Eos % (Auto) 1.2 % Baso % (Auto) 0.2 % Immature Gran # (Auto) 0.03 H (0.00-0.02) K/uL Neut # (Auto) 7.33 H (1.4-6.5) K/uL Lymph # (Auto) 2.15 (1.2-3.4) K/uL [place] # (Auto) 0.86 H (0.11-0.59) K/uL Eos # (Auto) 0.13 (0-0.5) K/uL Baso # (Auto) 0.02 (0-0.2) K/uL Sodium (136-145) mmol/L Potassium (3.5-5.1) mmol/L Chloride (98-107) mmol/L Carbon Dioxide (21-32) mmol/L Anion Gap (3-11) BUN (7-18) mg/dl Creatinine (0.6-1.4) mg/dl Est Cr Clr Drug Dosing ml/min Est GFR ( Amer) Est GFR (Non-Af Amer) BUN/Creatinine Ratio (10-20) Glucose (70-99) mg/dl Calcium (8.5-10.1) mg/dl Total Bilirubin (0.2-1) mg/dl AST (15-37) U/L ALT (12-78) U/L Alkaline Phosphatase (45-117) U/L NT-Pro-B Natriuret Pep (0-900) pg/ml Total Protein (6.4-8.2) gm/dl Albumin (3.4-5.0) gm/dl Globulin (2.5-4.0) gm/dl Albumin/Globulin Ratio (0.9-2) Lipase (73-393) U/L TSH (0.300-4.500) uIu/ml POC Urine pH POC Urine Protein (Negative) POC Ur Glucose (UA) (Normal) POC Urine Ketones (Negative) POC Urine Blood (Negative) POC Urine Nitrite (Negative) POC Urine Bilirubin (Negative) POC Urine Urobilinogen (Normal) POC U Leukocyte Esteras (Negative) Ethyl Alcohol mg/dL (0-3) mg/dl Medications Administered Current Inpatient Medications Acetaminophen (Tylenol) 650 mg PO Q4H PRN PRN Reason: Pain or Fever Stop: 02/22/19 07:35 Aspirin (Ecotrin Ectab) 81 mg PO DAILY SILVIA Stop: 02/22/19 08:59 Atorvastatin Calcium (Lipitor) 40 mg PO HS SILVIA Stop: 02/22/19 20:59 Diltiazem HCl 125 mg/ Dextrose 125 mls @ 5 mls/hr IV .Q24H SILVIA; Protocol Stop: 02/22/19 07:35 Last Admin: 01/23/19 08:53 Dose: Not Given Documented by: Potassium Chloride/Sodium Chloride (Normal Saline W/20 Meq Kcl) 20 meq in 1,000 mls @ 100 mls/hr IV .Q10H SILVIA Stop: 01/24/19 03:35 Last Admin: 01/23/19 09:49 Dose: 100 mls/hr Documented by: Ioversol (Optiray 320 100ml) 100 ml IV ONCE PRN PRN Reason: Interaction Checking Stop: 01/27/19 05:49 Last Admin: 01/23/19 05:50 Dose: 92 ml Documented by: Metoprolol Tartrate (Lopressor) 25 mg PO BID SILVIA Stop: 02/22/19 08:59 Last Admin: 01/23/19 11:52 Dose: Not Given Documented by: Morphine Sulfate (Morphine Sulfate) 3 mg IV Q4H PRN PRN Reason: Pain Stop: 02/06/19 07:35 PG Care Time/CCT Total # of Minutes Spent Total Time Spent with Patient: Total time spent is greater than 50% in coordination of care (as documented) at patient's floor/unit and/or counseling patient: Resident Activity Tracking Resident Involvement: Resident Care Provided Care Provided: Adult Hospital Medicine
[2019-01-23] MEDS ORDERED: GADOBUTROL 65ML VIAL IV PRN (19:39)
--- NOTE | 2019-01-23 20:08 | History & Physical Bridge Note ---
Date of Service January 23, 2019 History & Physical Bridge Note I have examined the patient, reviewed the History & Physical and in the interval since the performance of the History & Physical I have noted the following changes of clinical significance: no changes noted ERCP today for cholangitis
--- NOTE | 2019-01-23 20:09 | Magnetic Resonance Report ---
MR abdomen wo/w con CLINICAL HISTORY: Pancreatic mass. COMPARISON STUDY: CT and ultrasound 01/23/2019. TECHNIQUE: MRI of the abdomen is performed transverse T1 and T2-weighted sequences in the axial and c oronal planes. Contrast enhanced sequences were acquired following the IV administration of . FINDINGS: Lower chest: Small right pleural effusion. Liver: Several small cysts and/or hemangiomas. Gallbladder: Unremarkable. Spleen: Normal in size and signal intensity. Pancreas: Possible 3.5 cm partially enhancing lesion juncture of the pancreatic head and uncinate pro cess. Endoscopic ultrasonography is suggested as follow-up. Trace peripancreatic infiltrative change. No evidence for abscess collection or pseudocyst. Adrenal glands: Unremarkable. Kidneys: Atrophic right kidney. Negative left kidney. Bowel: Nonobstructive Peritoneum: There is no abdominal ascites. Lymphadenopathy: None. Skeletal structures: Visualized skeletal structures times are normal marrow signal intensity. IMPRESSION: 1. Possible 3.5 cm partially enhancing lesion juncture pancreatic head and uncinate process. 2. Endoscopic ultrasonography is suggested as follow-up. 3. Trace peripancreatic infiltrative change. 4. Several small hepatic cysts and/or hemangiomas. 5. Trace right pleural effusion. 6. Narrowing of the distal common bile duct 7. Atrophic right kidney. The above report was generated using voice recognition software. It may contain grammatical, syntax or spelling errors. Electronically signed by: Joni Wagner M.D. 01/23/2019 8:08 PM
[2019-01-23] MEDS ORDERED: ePHEDrine sulfate 50 MG/ML AMP IV PRN (22:17)
[2019-01-23] MEDS ORDERED: ONDANSETRON INJ 2 MG/ML 2 ML VIAL IV PRN (22:17)
[2019-01-23] MEDS ORDERED: ATROPINE SULFATE 0.1 MG/ML 10ML SYR IV PRN (22:17)
[2019-01-23] MEDS ORDERED: PROMETHAZINE HCL 6.25 MG in SODIUM CHLORIDE 0.9% 50 ML IV PRN (22:17)
[2019-01-23] MEDS ORDERED: fentaNYL citrate 100 MCG/2 ML VIAL IV PRN (22:17)
--- NOTE | 2019-01-23 22:17 | Anesthesiology Consultation ---
Date of Service January 23, 2019 Assessment & Plan (1) Encounter for pre-operative examination: Chart Review Chart Review: Acceptable Risk for Surgery and Patient NOT seen in Pre Admission Testing Consults Requested none ASA ASA3 Proposed Anesthesia Anesthesia Type: General Risk / Benefits Reviewed With: PT / POA / Parent / Guardian, Accepts Plan and In formed Consent Obtained History Surgery Operation Date: 01/23/19 13:35 Proposed Procedures p Endoscopic Retrograde Cholangiopancreatogram - Heather Schmitt MD Height/Weight Height: 5 ft 6 in Weight: 70 kg Allergies Allergy/AdvReac Type Severity Reaction Status Date / Time No Known Allergies Allergy Verified 01/23/19 03:36 Medications Home Medications Medication Instructions Recorded Confirmed Last Taken aspirin [Adult Low Dose Aspirin] 81 mg PO .ON HOLD 08/09/18 01/23/19 Unknown lisinopril [Zestril] 20 mg PO DAILY 08/09/18 01/23/19 01/22/19 apixaban [Eliquis] 5 mg PO BID #60 tab 08/12/18 01/23/19 01/22/19 atorvastatin 40 mg PO HS #30 tab 08/12/18 01/23/19 01/22/19 metoprolol tartrate 25 mg PO BID #60 tab 08/12/18 01/23/19 01/22/19 Active Medications Generic Name Dose Route Start Last Admin Trade Name Freq PRN Reason Stop Dose Admin Gadobutrol 6.5 ml 01/23/19 19:39 01/23/19 19:40 Gadavist 65ml IV 01/27/19 19:38 6.5 ml ONCE PRN Administration Interaction Checking Diltiazem HCl 125 mg/ Dextrose 125 mls @ 5 mls/hr 01/23/19 07:36 01/23/19 08:53 IV 02/22/19 07:35 Not Given .Q24H SILVIA Protocol 5 MG/HR Potassium Chloride/Sodium Chloride 20 meq in 1,000 mls @ 100 mls/hr 01/23/19 07:36 01/23/19 09:49 Normal Saline W/20 Meq Kcl IV 01/24/19 03:35 100 mls/hr .Q10H SILVIA Administration Ioversol 100 ml 01/23/19 05:50 01/23/19 05:50 Optiray 320 100ml IV 01/27/19 05:49 92 ml ONCE PRN Administration Interaction Checking Metoprolol Tartrate 25 mg 01/23/19 09:00 01/23/19 11:52 Lopressor PO 02/22/19 08:59 Not Given BID SILVIA NPO Date Last Intake of Fluids: 01/22/19 Date Last Intake of Solids: 01/22/19 Past Medical History Medical History HTN (hypertension) (Chronic) Afib CAD (coronary artery disease) CKD (chronic kidney disease) HOCM (hypertrophic obstructive cardiomyopathy) Hyperlipidemia NSTEMI (non-ST elevated myocardial infarction) Exercise / Class Metabolic Activity II 4-5 Yardwork/Stairs/Walk up hill Past Surgical History Surgical History No pertinent past surgical history H/O colonoscopy H/O eye surgery H/O foot surgery Past Anesthesia History No Hx of Anesthesia Complications and No Family Hx of Anesthesia Complications History of PONV No Hx of PONV and No Hx of Motion Sickness Social History Smoking Status: Never smoker Hx Alcohol Use: Yes alcohol intake frequency: holidays/special occasions only Hx Substance Use: No substance use type: does not use Physical Exam Vital Signs Last Vital Signs Temp 37.1 C 01/23/19 20:07 Pulse 80 01/23/19 20:07 Resp 16 01/23/19 20:07 BP 159/81 H 01/23/19 20:07 Pulse Ox 96 01/23/19 20:07 ENMT Mouth: no dentition abnormality Thyromental Distance: > or= 3.5 Finger Breadths Mallampati Class: II Neck normal visual inspection Respiratory normal respiratory effort Auscultation: lungs clear to auscultation bilaterally Cardiovascular Rate/Rhythm: regular rate and regular rhythm Psychiatric Orientation: alert Testing Laboratory Results 01/23/19 02:14 01/23/19 02:14
[2019-01-23] MEDS ORDERED: fentaNYL citrate 100 MCG/2 ML VIAL ONE (22:28)
[2019-01-23] MEDS ORDERED: INDOMETHACIN 50 MG SUPP PR ONE (22:29)
[2019-01-23] MEDS ORDERED: PHENYLEPHRINE HCL 10 MG/ML VIAL ONE (22:50)
[2019-01-23] MEDS ORDERED: SUCCINYLCHOLINE CHLORIDE 20 MG/ML 10 ML VIAL ONE (22:50)
[2019-01-23] MEDS ORDERED: DEXAMETHASONE SOD INJ 4 MG/ML VIAL ONE (22:50)
[2019-01-23] MEDS ORDERED: PROPOFOL IV EMULSION 10 MG/ML 20 ML VIAL IV ONE (22:50)
[2019-01-23] MEDS ORDERED: ONDANSETRON INJ 2 MG/ML 2 ML VIAL ONE (22:50)
[2019-01-23] MEDS ORDERED: METOPROLOL TARTRATE 1 MG/ML VIAL IV ONE (22:50)
[2019-01-23] MEDS ORDERED: LIDOCAINE HCL 2% 2 ML VIAL/AMP(20MG/ML) INFIL ONE (22:51)
--- NOTE | 2019-01-23 23:46 | Operative Report ---
Post Operative Report Pre & Post Diagnosis Operation Date: 01/23/19 13:35 Pre-Op Diagnosis: pancreatic cancer, cholangitis Post-Op Diagnosis: pancreatic cancer, cholangitis; common bile duct stricture Procedure Operation Date: 01/23/19 13:35 Actual Procedures p Endoscopic Retrograde Cholangiopancreatogram(Not Applicable) - Heather Schmitt MD Surgeon Heather Schmitt MD Manager Merchandise None Estimated Blood Loss 0 Findings See Below (Long CBD stricture, biopsied and brushed, Pus noted, CBD stent placed) Specimens CBD brushing and biopsy Description of Procedure ERCP I attest to the content of the Intraoperative Record and any orders documented therein. Any exceptions are noted below.
[2019-01-24] MEDS: ATORVASTATIN 40 MG TAB PO SCH ×2 (00:03→21:43)
[2019-01-24] MEDS: METOPROLOL TARTRATE 25 MG TAB PO SCH (00:04)
--- NOTE | 2019-01-24 00:05 | Anesthesiology Progress Note ---
Date of Service January 24, 2019 Anesthesia Post Procedure Vital Signs Vital Signs: Temp Pulse Pulse Resp BP BP Pulse Ox 01/23/19 20:07 37.1 C 80 16 159/81 H 96 01/23/19 15:26 36.4 C L 75 20 154/88 H 97 01/23/19 11:42 37 C 72 18 140/75 96 01/23/19 07:32 37.8 C H 80 18 121/77 96 01/23/19 07:14 136 H 18 100/67 97 01/23/19 06:36 132 H 18 123/74 96 01/23/19 06:32 149 H 17 98/65 L 94 01/23/19 06:30 124 H 20 96 01/23/19 06:18 139 H 19 110/73 97 01/23/19 06:17 135 H 18 89/70 L 01/23/19 05:49 170 H 25 H 112/94 01/23/19 05:20 138 H 27 H 91/75 L 95 01/23/19 05:10 136 H 17 90/74 L 97 01/23/19 05:03 144 H 20 96/76 L 97 01/23/19 04:50 148 H 29 H 115/59 L 97 01/23/19 04:40 123 H 12 94/62 L 98 01/23/19 04:33 110 H 25 H 100/81 98 01/23/19 04:30 142 H 6 L 77/62 L 97 01/23/19 04:22 140 H 23 88/56 L 93 01/23/19 04:21 128 H 28 H 96 01/23/19 04:20 124 H 32 H 74/65 L 96 01/23/19 04:10 131 H 19 87/72 L 97 01/23/19 04:01 142 H 21 93/63 L 90 01/23/19 03:50 102/76 01/23/19 03:41 158 H 21 98 01/23/19 03:37 155 H 108/88 01/23/19 03:27 151 H 24 114/77 95 01/23/19 03:20 140 H 20 83/67 L 95 01/23/19 03:11 143 H 17 97 01/23/19 03:10 138 H 22 104/62 98 01/23/19 03:06 162 H 16 107/62 97 01/23/19 02:51 136 H 19 96 01/23/19 02:50 130 H 15 97/70 L 95 01/23/19 02:40 123 H 20 97/61 L 96 01/23/19 02:30 129 H 16 100/81 95 01/23/19 02:21 139 H 18 80/66 L 96 01/23/19 02:20 153 H 26 H 79/64 L 95 01/23/19 02:04 36.4 C L 73 16 98 Transfer of Care Handoff Completed per policy Notes Mental Status: alert / awake / arousable Patient Amnestic to Procedure: Yes Nausea / Vomiting: adequately controlled Pain: adequately controlled Airway Patency, RR, SpO2: stable & adequate BP & HR: stable & adequate Hydration State: stable & adequate Anesthetic Complications: no major complications apparent
--- NOTE | 2019-01-24 00:07 | GI REPORT ---
Patient Name: Lito Muñoz Procedure Date: 01/23/2019 10:15 PM Date of : 1950 Admit Type: Inpatient Age: 68 Gender: Male Attending MD: Heather Schmitt MD Procedure: ERCP Providers: Heather Schmitt MD Referring MD: Julius Bales Indications: Abnormal abdominal CT, Biliary dilation on Computed Tomogram Scan, Abnormal MRCP, Suspected ascending cholangitis, Jaundice Medicines: General Anesthesia Complications: No immediate complications. Estimated Blood Loss: Estimated blood loss: none. Procedure: Pre-Anesthesia Assessment: - Prior to the procedure, a History and Physical was performed, and patient medications and allergies were reviewed. The patient is competent. The risks and benefits of the procedure and the sedation options and risks were discussed with the patient. All questions were answered and informed consent was obtained. Patient identification and proposed procedure were verified by the physician and the nurse in the procedure room. Mental Status Examination: alert and oriented. Airway Examination: normal oropharyngeal airway and neck mobility. Respiratory Examination: clear to auscultation. CV Examination: normal. ASA Grade Assessment: III - A patient with severe systemic disease. After reviewing the risks and benefits, the patient was deemed in satisfactory condition to undergo the procedure. The anesthesia plan was to use general anesthesia. Immediately prior to administration of medications, the patient was re-assessed for adequacy to receive sedatives. The heart rate, respiratory rate, oxygen saturations, blood pressure, adequacy of pulmonary ventilation, and response to care were monitored throughout the procedure. The physical status of the patient was re-assessed after the procedure. After obtaining informed consent, the scope was passed under direct vision. Throughout the procedure, the patient's blood pressure, pulse, and oxygen saturations were monitored continuously. The SCOPE was introduced through the mouth, and advanced to the duodenum and used to inject contrast into the bile duct. The ERCP was accomplished without difficulty. The patient tolerated the procedure well. Findings: The sheet metal operator film was normal. The esophagus was successfully intubated under direct vision. The scope was advanced to a normal major papilla in the descending duodenum without detailed examination of the pharynx, larynx and associated structures, and upper GI tract. The upper GI tract was grossly normal. Few superficial nonbleeding ulcers were noted in the duodenum. Despite multiple attempts of biliary cannulation using a sphincterotome and guidewire, deep biliary cannulation could not be achieved hence a biliary sphincterotomy was made with a monofilament needle knife using a freehand technique using ERBE electrocautery. There was no post-sphincterotomy bleeding. A 0.035 inch straight standard wire was passed into the biliary tree. The Fusion OMNI sphincterotome was passed over the guidewire and the bile duct was then deeply cannulated. Contrast was injected. I personally interpreted the bile duct images. There was brisk flow of contrast through the ducts. Image quality was adequate. Contrast extended to the main bile duct. The middle and upper third of the main bile duct were moderately dilated. The largest diameter was 9 mm. The lower third of the main bile duct contained a single severe localized stenosis 30 mm in length. The biliary sphincterotomy was extended with a monofilament traction (standard) sphincterotome using ERBE electrocautery. There was no post-sphincterotomy bleeding. Cells for cytology were obtained by brushing in the lower third of the main bile duct. The lower third of the main bile duct was biopsied with a cold forceps for histology. Verification of patient identification for the specimen was done by the physician and nurse using the patient's name and date. The biliary tree was swept with an 8.5 mm balloon starting at the bifurcation. Sludge was swept from the duct. One 7 Fr by 8 cm plastic biliary stent with a single external flap and a single internal flap was placed into the common bile duct. Bile flowed through the stent. The stent was in good position. Indomethacin 100 mg was given via suppository to decrease the risk of post-ERCP pancreatitis (PEP). PD was not cannulated nor injected with contrast. Impression: - A single severe biliary stricture was found in the lower third of the main bile duct. The stricture was malignant appearing. Cells for cytology and biopsy was performed. - The upper and middle third of the main bile duct were moderately dilated. - A biliary sphincterotomy was performed. - The biliary tree was swept and sludge was found. - One plastic biliary stent was placed into the common bile duct. Recommendation: - [facility]. - Perform an upper endoscopic ultrasound (UEUS) with FNA of the pancreatic head mass on Saturday. - Hold Eliquis till after the FNA on Saturday. - PO PPI BID in view of PUD. - Repeat ERCP for stent exchange based on the FNA results and surgical candidacy if malignancy is proven. - Continue ABx. Heather Schmitt MD 01/24/2019 12:07:09 AM This report has been signed electronically. Note Initiated On: 01/23/2019 10:15 PM Number of Addenda: 0 I attest to the content of the Intraoperative Record and orders documented therein, exceptions below {[id number]}
[2019-01-24] MEDS ORDERED: GLUCAGON FOR INJ 1 MG VIAL ONE (00:28)
[2019-01-24] MEDS: NSS + 20MEQ KCL 20 MEQ/1,000 ML BAG IV SCH (01:00)
--- NOTE | 2019-01-24 05:48 | Emergency Department Note ---
Entered by Arielle Rodriguez acting as a scribe for Kathryn Spence DO History of Present Illness General Chief complaint: Tachycardia Stated complaint: ATRIL Time Seen by Provider: 01/23/19 02:09 Source: patient History of Present Illness Onset (ago): hour(s) less than 1 Location: chest Severity: similar to prior episodes Pain Consistency: + other (Sudden) Quality: + other (Tachycardia) Relieved By: + other (electric shock) Exacerbated By: + movement Associated symptoms: + other (Positive dehydration, light headedness. Negative abnormal bowel movements.); no chest pain, no fever/chills and no shortness of breath The patient is a 68 year old male presenting to the Emergency Department complaining of sudden tachycardia starting less than 1 hour ago. The patient reports that his heart is racing. He states that he is light headed and that when he walks around his symptoms worsen. He explains that he has been dealing with nausea and abdominal pain for 7-10 days and thinks he is dehydrated because he has not been drinking water because it worsens his abdominal pain. He notes that he has experienced these symptoms before in August of 2018. He adds that at that time he had to be shocked after medications could not improve his heart rhythm. The patient reports that he has not been able to sleep much and that this has added stress to his life. He states that in August of 2018 an echocardiogram and stress test both of which were negative. He notes that his electrocardiograph operator is Dr. Castillo but that he has not seen him in a while. He adds that he currently takes Eliquis. The patient denies chest pain, shortness of breath, fever, chills and abnormal bowel movements. Denies recent trauma or change in activity. Denies vomiting. No recent sick contacts, no travel, no change in medications. Home Medications Home Medications Medication Instructions Recorded Confirmed Type aspirin [Adult Low Dose Aspirin] 81 mg PO .ON HOLD 08/09/18 01/23/19 History lisinopril [Zestril] 20 mg PO DAILY 08/09/18 01/23/19 History apixaban [Eliquis] 5 mg PO BID #60 tab 08/12/18 01/23/19 Rx atorvastatin 40 mg PO HS #30 tab 08/12/18 01/23/19 Rx metoprolol tartrate 25 mg PO BID #60 tab 08/12/18 01/23/19 Rx Allergies Allergy/AdvReac Type Severity Reaction Status Date / Time No Known Allergies Allergy Verified 01/23/19 03:36 Past Med/Surg History Medical History HTN (hypertension) (Chronic) Afib CAD (coronary artery disease) CKD (chronic kidney disease) HOCM (hypertrophic obstructive cardiomyopathy) Hyperlipidemia NSTEMI (non-ST elevated myocardial infarction) Surgical History No pertinent past surgical history H/O colonoscopy H/O eye surgery H/O foot surgery Social History Preferred Language: Vietnamese Communication Ability: Effective Agile Test Lead Required: No Beliefs That Will Affect Care: None Current Living Situation: Alone current occupation: IT Other Information That Helps Us Care for You: No Feels Safe at Home: Yes Safety Concerns: Feels Safe At This Time Smoking Status: Never smoker Hx Alcohol Use: Yes Alcohol Intake Frequency Comment: occasional Hx Substance Use: No Review of Systems See HPI for pertinent positives & negatives. and A total of 10 systems reviewed and were otherwise negative Physical Exam Vital Signs Vital Signs - 24 hr 01/23/19 02:04 01/23/19 02:20 01/23/19 02:21 Temperature 97.5 F L Temperature Source Oral Sepsis Recent Fever Within 48 Hours No Sepsis Action Taken by Nursing No Action Required Pulse Rate 73 153 H 139 H Pulse Rate from SpO2 Sensor 122 H 107 H Respiratory Rate 16 26 H 18 Respiratory Effort / Characteristics Non-Labored Spontaneous Respiratory Depth Normal Blood Pressure 79/64 L 80/66 L Blood Pressure Mean 69 70 Pulse Oximetry 98 95 96 Oxygen Delivery Method Room Air 01/23/19 02:30 01/23/19 02:40 01/23/19 02:50 Temperature Temperature Source Sepsis Recent Fever Within 48 Hours Sepsis Action Taken by Nursing Pulse Rate 129 H 123 H 130 H Pulse Rate from SpO2 Sensor 147 H 110 H 102 H Respiratory Rate 16 20 15 Respiratory Effort / Characteristics Respiratory Depth Blood Pressure 100/81 97/61 L 97/70 L Blood Pressure Mean 87 73 79 Pulse Oximetry 95 96 95 Oxygen Delivery Method 01/23/19 02:51 01/23/19 03:06 01/23/19 03:10 Temperature Temperature Source Sepsis Recent Fever Within 48 Hours Sepsis Action Taken by Nursing Pulse Rate 136 H 162 H 138 H Pulse Rate from SpO2 Sensor 134 H 136 H 117 H Respiratory Rate 19 16 22 Respiratory Effort / Characteristics Respiratory Depth Blood Pressure 107/62 104/62 Blood Pressure Mean 77 76 Pulse Oximetry 96 97 98 Oxygen Delivery Method 01/23/19 03:11 01/23/19 03:20 01/23/19 03:27 Temperature Temperature Source Sepsis Recent Fever Within 48 Hours Sepsis Action Taken by Nursing Pulse Rate 143 H 140 H 151 H Pulse Rate from SpO2 Sensor 117 H 124 H 124 H Respiratory Rate 17 20 24 Respiratory Effort / Characteristics Respiratory Depth Blood Pressure 83/67 L 114/77 Blood Pressure Mean 72 89 Pulse Oximetry 97 95 95 Oxygen Delivery Method 01/23/19 03:37 01/23/19 03:41 01/23/19 03:50 Temperature Temperature Source Sepsis Recent Fever Within 48 Hours Sepsis Action Taken by Nursing Pulse Rate 155 H 158 H Pulse Rate from SpO2 Sensor 149 H Respiratory Rate 21 Respiratory Effort / Characteristics Respiratory Depth Blood Pressure 108/88 102/76 Blood Pressure Mean 84 Pulse Oximetry 98 Oxygen Delivery Method 01/23/19 04:01 01/23/19 04:10 01/23/19 04:20 Temperature Temperature Source Sepsis Recent Fever Within 48 Hours Sepsis Action Taken by Nursing Pulse Rate 142 H 131 H 124 H Pulse Rate from SpO2 Sensor 107 H 84 114 H Respiratory Rate 21 19 32 H Respiratory Effort / Characteristics Respiratory Depth Blood Pressure 93/63 L 87/72 L 74/65 L Blood Pressure Mean 73 77 68 Pulse Oximetry 90 97 96 Oxygen Delivery Method 01/23/19 04:21 01/23/19 04:22 01/23/19 04:30 Temperature Temperature Source Sepsis Recent Fever Within 48 Hours Sepsis Action Taken by Nursing Pulse Rate 128 H 140 H 142 H Pulse Rate from SpO2 Sensor 116 H 116 H 100 H Respiratory Rate 28 H 23 6 L Respiratory Effort / Characteristics Respiratory Depth Blood Pressure 88/56 L 77/62 L Blood Pressure Mean 66 67 Pulse Oximetry 96 93 97 Oxygen Delivery Method 01/23/19 04:33 01/23/19 04:40 01/23/19 04:50 Temperature Temperature Source Sepsis Recent Fever Within 48 Hours Sepsis Action Taken by Nursing Pulse Rate 110 H 123 H 148 H Pulse Rate from SpO2 Sensor 97 H 102 H 137 H Respiratory Rate 25 H 12 29 H Respiratory Effort / Characteristics Respiratory Depth Blood Pressure 100/81 94/62 L 115/59 L Blood Pressure Mean 87 72 77 Pulse Oximetry 98 98 97 Oxygen Delivery Method 01/23/19 05:03 01/23/19 05:10 Temperature Temperature Source Sepsis Recent Fever Within 48 Hours Sepsis Action Taken by Nursing Pulse Rate 144 H 136 H Pulse Rate from SpO2 Sensor 94 H 95 H Respiratory Rate 20 17 Respiratory Effort / Characteristics Respiratory Depth Blood Pressure 96/76 L 90/74 L Blood Pressure Mean 82 79 Pulse Oximetry 97 97 Oxygen Delivery Method GENERAL: alert, well appearing, well nourished, no distress, non-toxic EYE EXAM: normal conjunctiva, PERRL and EOM's grossly intact OROPHARYNX: no exudate, no erythema, lips, buccal mucosa, and tongue normal. Mild dry mucous membranes. NECK: supple, no nuchal rigidity, no adenopathy, non-tender LUNGS: Clear to auscultation. Normal chest wall mechanics, no w/r/r HEART: no murmurs, S1 normal and S2 normal. Heart rate fast and irregular. A-fib with RVR in 150s on telemetry. ABDOMEN: abdomen soft, non-tender, normo-active bowel sounds, no masses, no rebound or guarding. BACK: Back is symmetrical on inspection and there is no deformity, no midline tenderness, no CVA tenderness. SKIN: no rashes and no bruising UPPER EXTREMITIES: upper extremities are grossly normal. FROM, nml pulses b/l. LOWER EXTREMITIES: No pitting edema. FROM, nml pulses b/l. NEURO EXAM: Normal sensorium, cranial nerves II-XII grossly intact, normal speech, no gross weakness of arms, no gross weakness of legs. Course 0215: The patient was evaluated in room A9B, and a complete history and physical examination were performed. 0227: Review of admission in August 2018 for new onset A-fib. Echocardiogram showed normal LV size with EF greater than 75%. Mild concentric LVH. No wall motion abnormalities. No significant valve abnormalities. 0241: I reevaluated the patient at this time whose blood pressure has improved. The patient reports feeling improved. The patient is still in A-fib but his heart rate is decreasing. 0326: I updated the patient on his lab work at this time. Awaiting additional ultrasound. Patient had mild improvement in heart rate with additional IV metoprolol, however blood pressure dropped also. This quickly improved with additional IV fluids. Discussed with patient possible need for Cardizem drip. 0415: I discussed the patients case with Dr. Curt HERRERA hospitalist. He will evaluate the patient for further management. Consultations Consultation #1: I discussed the patients case with Dr. Curt HERRERA hospitalist. He will evaluate the patient for further management. Time: 04:15 Administered Medications Atorvastatin Calcium (Lipitor) 40 mg PO HS [facility] Stop: 02/22/19 20:59 Last Admin: 01/24/19 00:03 Dose: Not Given Documented by: [id number] Gadobutrol (Gadavist 65ml) 6.5 ml IV ONCE PRN PRN Reason: Interaction Checking Stop: 01/27/19 19:38 Last Admin: 01/23/19 19:40 Dose: 6.5 ml Documented by: [id number] Diltiazem HCl 125 mg/ Dextrose 125 mls @ 5 mls/hr IV .Q24H [facility]; Protocol Stop: 02/22/19 07:35 Last Admin: 01/23/19 08:53 Dose: Not Given Documented by: [id number] Ioversol (Optiray 320 100ml) 100 ml IV ONCE PRN PRN Reason: Interaction Checking Stop: 01/27/19 05:49 Last Admin: 01/23/19 05:50 Dose: 92 ml Documented by: [id number] Metoprolol Tartrate (Lopressor) 25 mg PO BID SILVIA Stop: 02/22/19 08:59 Last Admin: 01/24/19 00:04 Dose: Not Given Documented by: [id number] Admin: 01/23/19 11:52 Dose: Not Given Documented by: [id number] Discontinued Medications Apixaban (Eliquis) 5 mg PO BID [facility] Stop: 02/22/19 08:59 Last Admin: 01/23/19 11:29 Dose: Not Given Documented by: [id number] Diltiazem HCl (Cardizem) 2.5 mg IV NOW [facility] Stop: 01/23/19 07:37 Last Admin: 01/23/19 08:53 Dose: Not Given Documented by: [id number] Glucagon (Glucagen) Confirm Administered Dose 1 mg .ROUTE .STK-MED ONE Stop: 01/24/19 00:29 Last Admin: 01/24/19 04:50 Dose: Not Given Documented by: [id number] Sodium Chloride (Nss 1000ml) 1,000 mls @ 999 mls/hr IV .Q1H1M ONE Stop: 01/23/19 03:51 Last Infusion: 01/23/19 03:14 Dose: 0 mls/hr Documented by: [id number] Admin: 01/23/19 02:20 Dose: 999 mls/hr Documented by: [id number] Sodium Chloride (Nss 1000ml) 1,000 mls @ 999 mls/hr IV .Q1H1M ONE Stop: 01/23/19 03:52 Last Infusion: 01/23/19 04:42 Dose: 0 mls/hr Documented by: [id number] Admin: 01/23/19 02:45 Dose: 999 mls/hr Documented by: [id number] Sodium Chloride (Nss 1000ml) 1,000 mls @ 125 mls/hr IV .Q8H SILVIA Stop: 02/22/19 04:44 Last Infusion: 01/23/19 09:49 Dose: 0 mls/hr Documented by: [id number] Admin: 01/23/19 05:08 Dose: 125 mls/hr Documented by: [id number] Diltiazem HCl 125 mg/ Dextrose 125 mls @ 0 mls/hr IV .Q0M STA Stop: 01/23/19 05:40 Last Infusion: 01/23/19 09:00 Dose: 0 mg/hr, 0 mls/hr Documented by: [id number] Admin: 01/23/19 06:02 Dose: 5 mg/hr, 5 mls/hr Documented by: [id number] Cosigned by: [id number] Potassium Chloride/Sodium Chloride (Normal Saline W/20 Meq Kcl) 20 meq in 1,000 mls @ 100 mls/hr IV .Q10H SILVIA Stop: 01/24/19 03:35 Last Admin: 01/24/19 01:00 Dose: 100 mls/hr Documented by: [id number] Infusion: 01/23/19 20:00 Dose: 0 mls/hr Documented by: [id number] Admin: 01/23/19 09:49 Dose: 100 mls/hr Documented by: [id number] Indomethacin (Indocin) Confirm Administered Dose 100 mg VT .STK-MED ONE Stop: 01/23/19 22:30 Last Admin: 01/23/19 23:43 Dose: 100 mg Documented by: [id number] Lisinopril (Zestril) 20 mg PO DAILY SILVIA Stop: 02/22/19 08:59 Last Admin: 01/23/19 11:29 Dose: Not Given Documented by: [id number] Metoprolol Tartrate (Lopressor) 5 mg IV NOW STA Stop: 01/23/19 03:32 Last Admin: 01/23/19 03:37 Dose: 5 mg Documented by: [id number] Medical Decision Making Differential Diagnosis Differential diagnosis: Etiologies such as premature contractions, electrolyte abnormality, cardiac dysrhythmia, thyroid dysfunction, pulmonary embolism, infection, gastrointestinal, as well as others were entertained. Medical Records Attestation: I reviewed the patient's medical records. Home Medications Current Medication List: was personally reviewed by me Laboratory Data Attestation: I reviewed the patient's lab results. Result diagrams: 01/23/19 02:14 01/23/19 02:14 Lab Results 01/23/19 01/23/19 01/23/19 Range/Units 02:14 02:14 03:37 WBC 10.52 (4.8-10.8) K/uL RBC 5.20 (4.7-6.1) M/uL Hgb 16.4 (14.0-18.0) g/dL Hct 46.6 (42-52) % MCV 89.6 (80-100) fL MCH 31.5 (25-34) pg MCHC 35.2 (32-36) g/dL RDW Std Deviation 40.3 (36.4-46.3) fL RDW Coeff of Raul 12.4 (11.5-14.5) % Plt Count 322 (130-400) K/uL MPV 10.5 H (7.4-10.4) fL Immature Gran % (Auto) 0.3 % Neut % (Auto) 69.7 % Lymph % (Auto) 20.4 % [place] % (Auto) 8.2 % Eos % (Auto) 1.2 % Baso % (Auto) 0.2 % Immature Gran # (Auto) 0.03 H (0.00-0.02) K/uL Neut # (Auto) 7.33 H (1.4-6.5) K/uL Lymph # (Auto) 2.15 (1.2-3.4) K/uL [place] # (Auto) 0.86 H (0.11-0.59) K/uL Eos # (Auto) 0.13 (0-0.5) K/uL Baso # (Auto) 0.02 (0-0.2) K/uL Sodium 140 (136-145) mmol/L Potassium 3.7 (3.5-5.1) mmol/L Chloride 106 (98-107) mmol/L Carbon Dioxide 25 (21-32) mmol/L Anion Gap 9.0 (3-11) BUN 16 (7-18) mg/dl Creatinine 1.69 H (0.6-1.4) mg/dl Est Cr Clr Drug Dosing 36.7 ml/min Est GFR ( Amer) 46.7 Est GFR (Non-Af Amer) 40.3 BUN/Creatinine Ratio 9.5 L (10-20) Glucose 140 H (70-99) mg/dl Calcium 9.3 (8.5-10.1) mg/dl Total Bilirubin 1.9 H (0.2-1) mg/dl AST 447 H (15-37) U/L ALT 929 H (12-78) U/L Alkaline Phosphatase 401 H (45-117) U/L NT-Pro-B Natriuret Pep 328 (0-900) pg/ml Total Protein 7.3 (6.4-8.2) gm/dl Albumin 3.4 (3.4-5.0) gm/dl Globulin 3.9 (2.5-4.0) gm/dl Albumin/Globulin Ratio 0.9 (0.9-2) Lipase 2310 H (73-393) U/L TSH 2.560 (0.300-4.500) uIu/ml POC Urine pH Not Reportable POC Urine Protein Trace H (Negative) POC Ur Glucose (UA) Normal (Normal) POC Urine Ketones Negative (Negative) POC Urine Blood Negative (Negative) POC Urine Nitrite Negative (Negative) POC Urine Bilirubin Negative (Negative) POC Urine Urobilinogen Normal (Normal) POC U Leukocyte Esteras Negative (Negative) Ethyl Alcohol mg/dL (0-3) mg/dl 01/23/19 Range/Units 04:06 WBC (4.8-10.8) K/uL RBC (4.7-6.1) M/uL Hgb (14.0-18.0) g/dL Hct (42-52) % MCV (80-100) fL MCH (25-34) pg MCHC (32-36) g/dL RDW Std Deviation (36.4-46.3) fL RDW Coeff of Raul (11.5-14.5) % Plt Count (130-400) K/uL MPV (7.4-10.4) fL Immature Gran % (Auto) % Neut % (Auto) % Lymph % (Auto) % [place] % (Auto) % Eos % (Auto) % Baso % (Auto) % Immature Gran # (Auto) (0.00-0.02) K/uL Neut # (Auto) (1.4-6.5) K/uL Lymph # (Auto) (1.2-3.4) K/uL [place] # (Auto) (0.11-0.59) K/uL Eos # (Auto) (0-0.5) K/uL Baso # (Auto) (0-0.2) K/uL Sodium (136-145) mmol/L Potassium (3.5-5.1) mmol/L Chloride (98-107) mmol/L Carbon Dioxide (21-32) mmol/L Anion Gap (3-11) BUN (7-18) mg/dl Creatinine (0.6-1.4) mg/dl Est Cr Clr Drug Dosing ml/min Est GFR ( Amer) Est GFR (Non-Af Amer) BUN/Creatinine Ratio (10-20) Glucose (70-99) mg/dl Calcium (8.5-10.1) mg/dl Total Bilirubin (0.2-1) mg/dl AST (15-37) U/L ALT (12-78) U/L Alkaline Phosphatase (45-117) U/L NT-Pro-B Natriuret Pep (0-900) pg/ml Total Protein (6.4-8.2) gm/dl Albumin (3.4-5.0) gm/dl Globulin (2.5-4.0) gm/dl Albumin/Globulin Ratio (0.9-2) Lipase (73-393) U/L TSH (0.300-4.500) uIu/ml POC Urine pH POC Urine Protein (Negative) POC Ur Glucose (UA) (Normal) POC Urine Ketones (Negative) POC Urine Blood (Negative) POC Urine Nitrite (Negative) POC Urine Bilirubin (Negative) POC Urine Urobilinogen (Normal) POC U Leukocyte Esteras (Negative) Ethyl Alcohol mg/dL < 3.0 (0-3) mg/dl Imaging Data Attestation: I personally reviewed and interpreted this imaging study as follows: My Impression: XR Abdomen 2V w PA Chest: No cardiomegaly. No effusions. No wide mediastinum. No focal consolidation. No acute pulmonary edema. Patient slightly rotated. No free air. No SBO. Scattered air and stool. Radiologist's Impression: Radiology results as stated below per my review and the radiologist's interpretation: US RUQ: 4.5 cm mass at the pancreatic head with borderline dilated pancreatic ductal dilation, suspicious for obstructing adenocarcinoma. Intrahepatic biliary dilation. Liver metastases. Gallbladder wall thickening with pericholecystic fluid and gallbladder distention. No definite stones. Mildly dilated CBD. Possible 2.4 cm right renal lesion. Correlate with contrast-enhanced CT. Radiologist: Jose Bloom MD. Study ready [id number] and initial results transmitted at [id number]. ECG Data Attestation: I personally reviewed and interpreted this ECG as follows: Indication: tachycardia Rate (beats per minute): 141 Rhythm: atrial fibrillation Findings: + other (Normal axis. Normal QRS and QTC. ) and + ST depression (Slight ST depression in V3 and V4. ); no ST elevation Blood Pressure Blood Pressure Findings: Low blood pressure Blood Pressure Disposition: further management by hospitalist RADHA Brownlee Patient presenting here with recurrent episode of atrial fibrillation with RVR similar to prior. Patient is already anticoagulated and on metoprolol daily. Patient felt his symptoms were secondary to dehydration after 1 to 2 weeks of some mild GI symptoms. Patient was rehydrated here which did help improve his rate but he did not convert back to normal sinus rhythm. Patient was found to have abnormal LFTs and lipase. Due to this patient initially sent for ultrasound of the gallbladder, which was also then found to be concerning for a mass at the pancreatic head. Patient then sent for CT for additional evaluation which then appeared inconclusive. While awaiting the ultrasound, I did discuss the case with the [facility] hospitalist who also saw the patient at bedside in the emergency room. Given the unclear CT reading, they felt patient could be ad mitted upstairs for additional evaluation including GI consultation and likely MRCP. Patient was made aware of all results and verbalized understanding. Patient was started on a Cardizem drip to help with rate control which did help improve his rate. Patient did however remain in atrial fibrillation throughout his stay in the emergency room. Patient reported feeling markedly improved following rehydration. Slight increase in patient's creatinine compared to prior levels and his known chronic kidney disease likely related to dehydration. I do not suspect other occult etiology. Impression & Plan Atrial fibrillation with RVR, Palpitation, Dehydration, Abnormal LFTs, Pancreatic mass, YENIFER (acute kidney injury) Critical Care Time Critical Care Time: Yes Total Critical Care Time: 40 Critical care of 40 min performed to assess and manage high likelihood of life- threatening cardiac etiology, involving lab work, x-rays, ultrasound, and CAT scan performed with assessment to evaluation of dysrhythmia, abnormal LFTs and lipase with frequent reassessment. This time includes bedside time, treatment discussions with patient/family/consultants, documentation time and excludes procedure time. Discharge Plan Visit Data *Final* Discharge Date/Time: 01/23/19 07:14 Chief Complaint: Tachycardia Stated Complaint: ATRIL ED Provider: Kathryn Spence Discharge Problem: Atrial fibrillation with RVR, Palpitation, Dehydration, Abnormal LFTs, Pancreat ic mass, YENIFER (acute kidney injury) Patient Disposition: Admitted As Inpatient Discharge Instructions Interventions: ED Discharge Assessment Last Done: 01/23/19 07:14 The scribe's documentation has been prepared under my direction and personally reviewed by me in its entirety. I confirm that the note above accurately reflects all work, treatment, procedures, and medical decision making performed by me.
[2019-01-24 06:02] LABS: Basophils # (auto) 0.01 K/uL (0-0.2); Basophils % (auto) 0.1 %; Eosinophils # (auto) 0.01 K/uL (0-0.5); Eosinophils % (auto) 0.1 %; Hematocrit (blood only) 41.4 % (42-52); Hemoglobin 13.9 g/dL (14.0-18.0); Immature Granulocytes # (auto) 0.03 K/uL (0.00-0.02); Immature Granulocytes % (auto) 0.3 %; Lymphocytes # (auto) 0.78 K/uL (1.2-3.4); Lymphocytes % (auto) 8.6 %; Mean Corpuscular Hgb Conc 33.6 g/dL (32-36); Mean Platelet Volume 10.5 fL (7.4-10.4); Monocytes # (auto) 0.13 K/uL (0.11-0.59); Monocytes % (auto) 1.4 %; Neutrophils # (auto) 8.11 K/uL (1.4-6.5); Neutrophils % (auto) 89.5 %; Platelet Count 218 K/uL (130-400); RDW Coefficient of Variation 12.4 % (11.5-14.5); Red Blood Count 4.45 M/uL (4.7-6.1); White Blood Count 9.07 K/uL (4.8-10.8)
--- NOTE | 2019-01-24 06:30 | Fluoroscopy Report ---
[place] ERCP biliary ductal CLINICAL HISTORY: Pancreatic mass with common bile duct narrowing COMPARISON STUDY: MRI dated 01/23/2019 FLUOROSCOPY TIME: 124 seconds. NUMBER OF FLUOROSCOPIC IMAGES: 4 FINDINGS: 4 intraoperative fluoroscopic spot images are provided for interpretation. These images dem onstrate cannulation of the common bile duct with contrast injection. A balloon catheter is visualize d within the common bile duct image #2. Images #3 and 4 demonstrate placement of a biliary enteric st ent. IMPRESSION: Fluoroscopic spot images during ERCP with placement of a biliary enteric stent. Electronically signed by: Leighton Hand M.D. 01/24/2019 6:28 AM
[2019-01-24 06:37] LABS: Albumin Level 2.9 gm/dl (3.4-5.0); Calcium 8.3 mg/dl (8.5-10.1); Creatinine Clr Calc Pharmacy 43.7 ml/min; Est GFR (African American) 57.6; Est GFR (Non-African American) 49.7; Potassium 4.4 mmol/L (3.5-5.1)
[2019-01-24 06:48] LABS: Albumin Globulin Ratio 0.9 (0.9-2); Bilirubin,Total 1.2 mg/dl (0.2-1); Globulin 3.1 gm/dl (2.5-4.0)
--- NOTE | 2019-01-24 08:43 | Gastroenterology Progress Note ---
Date of Service January 24, 2019 Assessment & Plan (1) Pancreatic mass: Patient with a suspicious appearing pancreatic mass on CT and MRI. A repeat MRI is probably not needed at the present time. I would recommend that we proceed with endoscopic ultra most likely on Saturday pending availability in the OR. The patient may have his diet advanced as tolerated today but should be n.p.o. at midnight on Saturday. Please call with any additional questions or concerns Recommendations Advance diet as tolerated No need for a second MRI Endoscopic ultrasound to be arranged, most likely on Saturday Subjective Patient underwent ERCP yesterday afternoon. A biliary stent was placed. 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 We are making arrangements for endoscopic ultrasound on Saturday. Review of Systems Constitutional: no sweats Eyes: no diplopia Respiratory: no change in sputum and no hemoptysis Cardiovascular: no chest pain with activity Physical Exam Neck: trachea midline, no thyromegaly Respiratory: normal respiratory effort, lungs clear to auscultation Cardiovascular: RRR, no murmur, no edema Gastrointestinal (Abdomen): normal bowel sounds, soft, nontender, no hepatosplenomegaly Results & Data Vital Signs (Past 12 Hours) Vital Signs Temp Pulse Resp BP Pulse Ox 01/24/19 07:03 37.0 C 71 16 128/71 95 01/24/19 04:00 36.4 C L 78 16 139/70 01/24/19 03:10 36.7 C 61 16 132/69 94 01/24/19 02:30 36.5 C 58 L 14 142/79 H 94 01/24/19 02:01 36.5 C 49 L 14 150/77 H 94 01/24/19 01:48 36.4 C L 50 L 16 156/78 H 94 01/24/19 01:34 36.5 C 47 L 14 160/76 H 93 01/24/19 01:27 36.6 C 48 L 14 161/75 H 94 01/24/19 01:08 36.5 C 51 L 14 166/80 H 94 01/24/19 00:55 36.6 C 51 L 14 162/79 H 93 01/24/19 00:40 36.3 C L 54 L 16 146/78 H 95 01/24/19 00:30 36.4 C L 51 L 19 165/83 H 96 01/24/19 00:20 65 19 168/91 H 95 01/24/19 00:10 61 19 164/87 H 99 01/24/19 00:00 64 14 147/77 H 99 01/23/19 23:53 36.2 C L 66 28 H 148/80 H 95 Laboratory Results IF YOU EXPERIENCE ANY OF THE FOLLOWING SYMPTOMS AFTER YOUR PROCEDURE Laboratory Results - last 24 hr 01/23/19 01/24/19 01/24/19 03:37 05:47 05:47 WBC 9.07 RBC 4.45 L Hgb 13.9 L Hct 41.4 L MCV 93.0 MCH 31.2 MCHC 33.6 RDW Std Deviation 42.0 RDW Coeff of Raul 12.4 Plt Count 218 MPV 10.5 H Immature Gran % (Auto) 0.3 Neut % (Auto) 89.5 Lymph % (Auto) 8.6 [place] % (Auto) 1.4 Eos % (Auto) 0.1 Baso % (Auto) 0.1 Immature Gran # (Auto) 0.03 H Neut # (Auto) 8.11 H Lymph # (Auto) 0.78 L [place] # (Auto) 0.13 Eos # (Auto) 0.01 Baso # (Auto) 0.01 Sodium 140 Potassium 4.4 D Chloride 109 H Carbon Dioxide 22 Anion Gap 9.0 BUN 23 H Creatinine 1.42 H Est Cr Clr Drug Dosing 43.7 Est GFR ( Amer) 57.6 Est GFR (Non-Af Amer) 49.7 BUN/Creatinine Ratio 16.0 Glucose 126 H Calcium 8.3 L Total Bilirubin 1.2 H AST 192 H ALT 576 H Alkaline Phosphatase 346 H Total Protein 6.0 L Albumin 2.9 L Globulin 3.1 Albumin/Globulin Ratio 0.9 Lipase 769 H POC Urine pH Not Reportable
--- NOTE | 2019-01-24 09:27 | Family Medicine Progress Note ---
Date of Service January 24, 2019 Assessment & Plan (1) Atrial fibrillation with RVR: 67 y/o M hx HTN, HLD, CKD III, PAF. Presents with palpitations and abdominal pain diffuse x 2 weeks. He denied nausea, vomiting or diarrhea. The pt was diagnosed with AF 08/2018. Successfully cardioverted at that time and had not reverted to AF since. EKG concerning for AFib with RVR. Denied CP or SOB. HR was in the 160s on arrival to the ER. Initial labs were notable for an elevated lipase and elevated LFTs. Abnormal LFTs/abdominal pain CMP and other laboratory findings are concerning for pancreatitis. CT scan is consistent with pancreatitis unclear etiology mass versus stone. Ultrasound imaging was more concerning for a mass of the pancreatic head. Patient has a strong family history of pancreatic cancer. -GI consulted -ERCP on 01/23/19 -concern for pancreatic mass likely cancer, common bile duct stricture which was stented, cholangitis -Arrangements are being made for upper EUS with FNA of pancreatic head mass on Saturday -Plan for patient being n.p.o. after midnight on Saturday, 01/25 -Holding anticoagulation, Xarelto until after procedure -Started on Zosyn per GI recommendation -Radiology recommends abdominal MRI with and without contrast after ERCP -IV antiemetics PRN, IV analgesia PRN -Trend LFTs and lipase -Patient aware of findings and denied grief support services at this time Hx of PAF with concern for now improved Afib with RVR this admission This episode likely secondary to dehydration. -Diltiazem drip dced - converted and remained in normal sinus rhythm. No signs or symptoms of ACS -Cardiology consulted: -Rhythm control not needed -Converted 25 mg twice daily IR metoprolol to ER 50 mg metoprolol succinate -Transitioned from twice daily Eliquis to daily Xarelto 20 mg - held now for procedure on 01/26 CKD creatinine elevated on admission to 1.69. -Improved s/p IVFs to 1.4 HTN -Continue home metoprolol -Holding lisinopril may resume when YENIFER resolves HLD - continue Atorvastatin Code Status: Full code DVT PPX: Eliquis - Held for procedure on 01/26 Dispo: MedSurg with telemetry Supervising Physician Co-Signing Physician Notes Attending attestation Pt seen and examined in concert with Dr. Mcgovern. In agreement with the documented findings as noted in the resident documentation with any exceptions or additions as noted here. Pt resting in bed without present complaint. Expresses concern over status of evaluation of obstructive pancreatic mass and options. Though I reviewed the options broadly (excision, chemo/radiation, palliation), I let him know that any true planning will hinge on his upcoming testing. I offered to coordinate with someone to help him with grief, which he defers. On examination, S1/S2 nl 2/6 MALCOM, CTAB. NT/ND, BS +ve throughout Obstructive pancreatic mass w/ transaminitis and elevated lipase - GI consultation appreciated. Pending EUS FNA Saturday. Labs improving, continue to trend LFTs. Atrial fibrillation with RVR - resolved, continue metoprolol for rate control. Can d/c tele monitoring and transfer to med/surg CKD w/ YENIFER - improving, trend Cr. Avoid nephrotoxic interventions where possible. Else see resident documentation as noted. Subjective Patient underwent ERCP yesterday afternoon. A biliary stent was placed. 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 Arrangements for endoscopic ultrasound on Saturday are being made. Patient denied any abdominal pain, nausea, vomiting this morning while being n.p.o. patient reported pain only when he eats. However this afternoon tolerated clear diet and was advanced to low-fat diet. Denied any fever, chills, dizziness, headache, chest pain, shortness of breath, diarrhea, constipation, dysuria Review of Systems Review of Systems: As per HPI Physical Exam Physical Exam: General: In NAD Neuro: A&O x 4 Pulm: CTAB equal breath sounds bilaterally CV: RRR, no m/r/g Abdomen:+BS, no TTP in all quadrants, non-distended LE: no LE edema, no calf TTP Results & Data Vital Signs (Past 12 Hours) Vital Signs Temp Pulse Resp BP Pulse Ox 01/24/19 07:03 37.0 C 71 16 128/71 95 01/24/19 04:00 36.4 C L 78 16 139/70 01/24/19 03:10 36.7 C 61 16 132/69 94 01/24/19 02:30 36.5 C 58 L 14 142/79 H 94 01/24/19 02:01 36.5 C 49 L 14 150/77 H 94 01/24/19 01:48 36.4 C L 50 L 16 156/78 H 94 01/24/19 01:34 36.5 C 47 L 14 160/76 H 93 01/24/19 01:27 36.6 C 48 L 14 161/75 H 94 01/24/19 01:08 36.5 C 51 L 14 166/80 H 94 01/24/19 00:55 36.6 C 51 L 14 162/79 H 93 01/24/19 00:40 36.3 C L 54 L 16 146/78 H 95 01/24/19 00:30 36.4 C L 51 L 19 165/83 H 96 01/24/19 00:20 65 19 168/91 H 95 01/24/19 00:10 61 19 164/87 H 99 01/24/19 00:00 64 14 147/77 H 99 01/23/19 23:53 36.2 C L 66 28 H 148/80 H 95 Laboratory Results Abnormal lab results 01/24/19 01/24/19 Range/Units 05:47 05:47 RBC 4.45 L (4.7-6.1) M/uL Hgb 13.9 L (14.0-18.0) g/dL Hct 41.4 L (42-52) % MPV 10.5 H (7.4-10.4) fL Immature Gran # (Auto) 0.03 H (0.00-0.02) K/uL Neut # (Auto) 8.11 H (1.4-6.5) K/uL Lymph # (Auto) 0.78 L (1.2-3.4) K/uL Chloride 109 H (98-107) mmol/L BUN 23 H (7-18) mg/dl Creatinine 1.42 H (0.6-1.4) mg/dl Glucose 126 H (70-99) mg/dl Calcium 8.3 L (8.5-10.1) mg/dl Total Bilirubin 1.2 H (0.2-1) mg/dl AST 192 H (15-37) U/L ALT 576 H (12-78) U/L Alkaline Phosphatase 346 H (45-117) U/L Total Protein 6.0 L (6.4-8.2) gm/dl Albumin 2.9 L (3.4-5.0) gm/dl Lipase 769 H (73-393) U/L Medications Administered Current Inpatient Medications Acetaminophen (Tylenol) 650 mg PO Q4H PRN PRN Reason: Pain or Fever Stop: 02/22/19 07:35 Aspirin (Ecotrin Ectab) 81 mg PO DAILY [facility] Stop: 02/22/19 08:59 Last Admin: 01/24/19 09:59 Dose: 81 mg Documented by: Atorvastatin Calcium (Lipitor) 40 mg PO HS [facility] Stop: 02/22/19 20:59 Last Admin: 01/24/19 00:03 Dose: Not Given Documented by: Gadobutrol (Gadavist 65ml) 6.5 ml IV ONCE PRN PRN Reason: Interaction Checking Stop: 01/27/19 19:38 Last Admin: 01/23/19 19:40 Dose: 6.5 ml Documented by: Piperacillin Sod/Tazobactam (Sod 3.375 gm/ Dextrose) 115 mls @ 28.75 mls/hr IV Q8H [facility]; Protocol Stop: 02/03/19 21:59 Ioversol (Optiray 320 100ml) 100 ml IV ONCE PRN PRN Reason: Interaction Checking Stop: 01/27/19 05:49 Last Admin: 01/23/19 05:50 Dose: 92 ml Documented by: Metoprolol Succinate (Toprol Xl) 50 mg PO QAM [facility] Stop: 02/23/19 08:59 Last Admin: 01/24/19 10:00 Dose: 50 mg Documented by: Miscellaneous Information (Consult) 1 ea N/A UD PRN PRN Reason: Consult Stop: 02/23/19 14:04 Morphine Sulfate (Morphine Sulfate) 4 mg IV Q4H PRN PRN Reason: Pain Stop: 02/06/19 07:35 Pantoprazole Sodium (Protonix) 40 mg PO BID [facility] Stop: 02/23/19 08:59 Last Admin: 01/24/19 10:00 Dose: 40 mg Documented by: PG Care Time/CCT Total # of Minutes Spent Total Time Spent with Patient: Total time spent is greater than 50% in coordination of care (as documented) at patient's floor/unit and/or counseling patient: Resident Activity Tracking Resident Involvement: Resident Care Provided Care Provided: Adult Hospital Medicine
[2019-01-24] MEDS: ASPIRIN 81 MG ECTAB PO SCH (09:59)
[2019-01-24] MEDS: PANTOprazole 40 MG TAB PO SCH ×2 (10:00→21:43)
[2019-01-24] MEDS: METOPROLOL SUCC 50MG EXT REL TAB PO SCH (10:00)
--- NOTE | 2019-01-24 10:16 | Anesthesiology Progress Note ---
Date of Service January 24, 2019 Anesthesia Post Procedure Vital Signs Vital Signs: Temp Pulse Pulse Resp BP Pulse Ox 01/24/19 07:03 37.0 C 71 16 128/71 95 01/24/19 04:00 36.4 C L 78 16 139/70 01/24/19 03:10 36.7 C 61 16 132/69 94 01/24/19 02:30 36.5 C 58 L 14 142/79 H 94 01/24/19 02:01 36.5 C 49 L 14 150/77 H 94 01/24/19 01:48 36.4 C L 50 L 16 156/78 H 94 01/24/19 01:34 36.5 C 47 L 14 160/76 H 93 01/24/19 01:27 36.6 C 48 L 14 161/75 H 94 01/24/19 01:08 36.5 C 51 L 14 166/80 H 94 01/24/19 00:55 36.6 C 51 L 14 162/79 H 93 01/24/19 00:40 36.3 C L 54 L 16 146/78 H 95 01/24/19 00:30 36.4 C L 51 L 19 165/83 H 96 01/24/19 00:20 65 19 168/91 H 95 01/24/19 00:10 61 19 164/87 H 99 01/24/19 00:00 64 14 147/77 H 99 01/23/19 23:53 36.2 C L 66 28 H 148/80 H 95 01/23/19 20:07 37.1 C 80 16 159/81 H 96 01/23/19 15:26 36.4 C L 75 20 154/88 H 97 01/23/19 11:42 37 C 72 18 140/75 96 Transfer of Care Handoff Completed per policy Notes Mental Status: alert / awake / arousable and participated in evaluation Patient Amnestic to Procedure: Yes Nausea / Vomiting: adequately controlled Pain: adequately controlled Airway Patency, RR, SpO2: stable & adequate BP & HR: stable & adequate Hydration State: stable & adequate Anesthetic Complications: no major complications apparent
[2019-01-24] MEDS ORDERED: MoRPHine SULFATE 4 MG/ML 1 ML CARP\\VIAL IV PRN (13:56)
[2019-01-24] MEDS ORDERED: PIPERACILL/TAZOBAC CONSULT ACTIVE PRN (14:05)
[2019-01-24] MEDS ORDERED: PIPERACILLIN/TAZOBACTAM 3.375 GM in DEXTROSE 5% 100 ML IV ONE (15:15)
[2019-01-24] MEDS: PIPERACILLIN/TAZOBACTAM 3.375 GM in DEXTROSE 5% 100 ML IV SCH (21:43)
[2019-01-25 06:38] LABS: Basophils # (auto) 0.01 K/uL (0-0.2); Basophils % (auto) 0.1 %; Eosinophils # (auto) 0.13 K/uL (0-0.5); Eosinophils % (auto) 1.1 %; Hematocrit (blood only) 39.6 % (42-52); Hemoglobin 13.3 g/dL (14.0-18.0); Immature Granulocytes # (auto) 0.03 K/uL (0.00-0.02); Immature Granulocytes % (auto) 0.3 %; Lymphocytes # (auto) 2.45 K/uL (1.2-3.4); Lymphocytes % (auto) 20.5 %; Mean Corpuscular Hgb Conc 33.6 g/dL (32-36); Mean Corpuscular Volume 91.7 fL (80-100); Mean Platelet Volume 10.6 fL (7.4-10.4); Monocytes # (auto) 0.85 K/uL (0.11-0.59); Monocytes % (auto) 7.1 %; Neutrophils # (auto) 8.51 K/uL (1.4-6.5); Neutrophils % (auto) 70.9 %; Platelet Count 235 K/uL (130-400); RDW Coefficient of Variation 12.4 % (11.5-14.5); RDW Standard Deviation 42.1 fL (36.4-46.3); Red Blood Count 4.32 M/uL (4.7-6.1); White Blood Count 11.98 K/uL (4.8-10.8)
[2019-01-25] MEDS: PIPERACILLIN/TAZOBACTAM 3.375 GM in DEXTROSE 5% 100 ML IV SCH ×3 (06:49→22:18)
[2019-01-25 07:10] LABS: Albumin Level 2.6 gm/dl (3.4-5.0); BUN Creatinine Ratio 13.7 (10-20); Creatinine Clr Calc Pharmacy 43.4 ml/min; Est GFR (African American) 57.1; Est GFR (Non-African American) 49.3; Potassium 4.1 mmol/L (3.5-5.1)
[2019-01-25 07:13] LABS: Albumin Globulin Ratio 0.9 (0.9-2); Bilirubin,Total 0.7 mg/dl (0.2-1); Globulin 2.9 gm/dl (2.5-4.0); Total Protein 5.5 gm/dl (6.4-8.2)
[2019-01-25] MEDS: ASPIRIN 81 MG ECTAB PO SCH ×2 (08:03→09:32)
[2019-01-25] MEDS: PANTOprazole 40 MG TAB PO SCH ×2 (08:03→22:18)
[2019-01-25] MEDS: METOPROLOL SUCC 50MG EXT REL TAB PO SCH (08:03)
--- NOTE | 2019-01-25 09:50 | Communication Note ---
Date of Service: January 25, 2019 We are planning to do upper endoscopy with endoscopic ultrasound on Saturday. The patient and I discussed the role of the procedure and further evaluation of his pancreatic mass. Patient should be n.p.o. at midnight, would suggest continue with broad-spectrum antibiotics as suggested by Dr. Schmitt on Saturday evening
--- NOTE | 2019-01-25 12:16 | Family Medicine Progress Note ---
Date of Service January 25, 2019 Assessment & Plan (1) Atrial fibrillation with RVR: 67 y/o M hx HTN, HLD, CKD III, PAF. Presented with palpitations and abdominal pain diffuse x 2 weeks. He denied nausea, vomiting or diarrhea. The pt was diagnosed with AFib 08/2018. Successfully cardioverted at that time and had not reverted to AF since. EKG concerning for AFib with RVR. Denied CP or SOB. HR was in the 160s on arrival to the ER. Initial labs were notable for an elevated lipase and elevated LFTs. Abnormal LFTs/abdominal pain CMP and other laboratory findings are concerning for pancreatitis. CT scan is consistent with pancreatitis unclear etiology mass versus stone. Ultrasound joseph ging was more concerning for a mass of the pancreatic head. Patient has a strong family history of pancreatic cancer. -GI consulted -ERCP on 01/23/19 -concern for pancreatic mass likely cancer, common bile duct stricture which was stented, cholangitis -Arrangements made for upper EUS with FNA of pancreatic head mass tomorrow -Plan for patient being n.p.o. after midnight today -Holding anticoagulation, Xarelto until after procedure -On Zosyn per GI recommendation -IV antiemetics PRN, IV analgesia PRN -Trend LFTs and lipase -Patient aware of findings and denied grief support services at this time Diarrhea -developed today after pt started on Zosyn on 01/24 - likely in the setting of being on antibiotic -started on probiotic and encouraged to eat yogurt with meals -will order C. diff test if continues to have diarrhea Hx of PAF with concern for now improved Afib with RVR this admission This episode likely secondary to dehydration. -Diltiazem drip dced - converted and remained in normal sinus rhythm. No signs or symptoms of ACS -Cardiology consulted: -Rhythm control not needed -Converted 25 mg twice daily IR metoprolol to ER 50 mg metoprolol succinate -Transitioned from twice daily Eliquis to daily Xarelto 20 mg - held now for procedure on 01/26 CKD creatinine elevated on admission to 1.69. -Improved s/p IVFs to 1.4 HTN -Continue home metoprolol -Holding lisinopril may resume when YENIFER resolves HLD - continue Atorvastatin Code Status: Full code DVT PPX: Eliquis - Held for procedure on 01/26 Dispo: MedSurg with telemetry Supervising Physician Co-Signing Physician Notes Attending attestation Pt seen and examined in concert with Dr. Mcgovern. In agreement with the documented findings as noted in the resident documentation with any exceptions or additions as noted here. Pt reports mild abdominal pain with position changes but is otherwise well. Tolerating POI with minimal nausea. On examination, S1/S2 nl 2/6 MALCOM, CTAB. NT/ND, BS +ve throughout Obstructive pancreatic mass w/ transaminitis and elevated lipase - GI consultation appreciated. Pending EUS FNA Saturday. Labs improving, continue to trend LFTs. Atrial fibrillation with RVR - resolved, continue metoprolol for rate control. Can d/c tele monitoring and transfer to med/surg CKD w/ YENIFER - improving, trend Cr. Avoid nephrotoxic interventions where possible. Else see resident documentation as noted. Subjective This morning patient reports some abdominal tenderness when turning in bed and abdomen more distended. However pain better when walking. Also reports 4 total episodes of loose non-bloody and brown BMs. Tolerating low fat diet without any increased abdominal discomfort or n/v. Denied any fever, chills, dizziness, headache, chest pain, shortness of breath, nausea, vomiting, constipation, dysuria, hematuria Review of Systems Review of Systems: As per HPI Physical Exam Physical Exam: General: In NAD Neuro: A&O x 4 Pulm: CTAB equal breath sounds bilaterally CV: RRR, no m/r/g Abdomen:+BS, no TTP in all quadrants, non-distended LE: no LE edema, no calf TT Results & Data Vital Signs (Past 12 Hours) Vital Signs Temp Pulse Pulse Resp BP Pulse Ox 01/25/19 11:10 37.1 C 62 17 160/92 H 97 01/25/19 08:00 69 01/25/19 06:56 36.9 C 68 16 148/85 H 93 01/25/19 02:38 36.7 C 69 20 121/63 93 Laboratory Results Abnormal lab results 01/25/19 01/25/19 Range/Units 06:00 06:00 WBC 11.98 H (4.8-10.8) K/uL RBC 4.32 L (4.7-6.1) M/uL Hgb 13.3 L (14.0-18.0) g/dL Hct 39.6 L (42-52) % MPV 10.6 H (7.4-10.4) fL Immature Gran # (Auto) 0.03 H (0.00-0.02) K/uL Neut # (Auto) 8.51 H (1.4-6.5) K/uL [place] # (Auto) 0.85 H (0.11-0.59) K/uL Chloride 111 H (98-107) mmol/L BUN 20 H (7-18) mg/dl Creatinine 1.43 H (0.6-1.4) mg/dl Glucose 110 H (70-99) mg/dl Calcium 8.0 L (8.5-10.1) mg/dl AST 74 H (15-37) U/L ALT 369 H (12-78) U/L Alkaline Phosphatase 259 H (45-117) U/L Total Protein 5.5 L (6.4-8.2) gm/dl Albumin 2.6 L (3.4-5.0) gm/dl Lipase 587 H (73-393) U/L Medications Administered Current Inpatient Medications Acetaminophen (Tylenol) 650 mg PO Q4H PRN PRN Reason: Pain or Fever Stop: 02/22/19 07:35 Aspirin (Ecotrin Ectab) 81 mg PO DAILY [facility] Stop: 02/22/19 08:59 Last Admin: 01/25/19 09:32 Dose: Not Given Documented by: Atorvastatin Calcium (Lipitor) 40 mg PO HS [facility] Stop: 02/22/19 20:59 Last Admin: 01/24/19 21:43 Dose: 40 mg Documented by: Gadobutrol (Gadavist 65ml) 6.5 ml IV ONCE PRN PRN Reason: Interaction Checking Stop: 01/27/19 19:38 Last Admin: 01/23/19 19:40 Dose: 6.5 ml Documented by: Piperacillin Sod/Tazobactam (Sod 3.375 gm/ Dextrose) 115 mls @ 28.75 mls/hr IV Q8H [facility]; Protocol Stop: 02/03/19 21:59 Last Infusion: 01/25/19 10:49 Dose: Infused Documented by: Ioversol (Optiray 320 100ml) 100 ml IV ONCE PRN PRN Reason: Interaction Checking Stop: 01/27/19 05:49 Last Admin: 01/23/19 05:50 Dose: 92 ml Documented by: Metoprolol Succinate (Toprol Xl) 50 mg PO QAM [facility] Stop: 02/23/19 08:59 Last Admin: 01/25/19 08:03 Dose: 50 mg Documented by: Miscellaneous Information (Consult) 1 ea N/A UD PRN PRN Reason: Consult Stop: 02/23/19 14:04 Morphine Sulfate (Morphine Sulfate) 4 mg IV Q4H PRN PRN Reason: Pain Stop: 02/06/19 07:35 Pantoprazole Sodium (Protonix) 40 mg PO BID [facility] Stop: 02/23/19 08:59 Last Admin: 01/25/19 08:03 Dose: 40 mg Documented by: Saccharomyces Boulardii (Florastor) 250 mg PO DAILY [facility] Stop: 02/24/19 11:44 Last Admin: 01/25/19 12:53 Dose: 250 mg Documented by: PG Care Time/CCT Total # of Minutes Spent Total Time Spent with Patient: Total time spent is greater than 50% in co ordination of care (as documented) at patient's floor/unit and/or counseling patient: Resident Activity Tracking Resident Involvement: Resident Care Provided Care Provided: Adult Hospital Medicine
[2019-01-25] MEDS: SACCHAROMYCES BOULARDII 250 MG CAP PO SCH (12:53)
[2019-01-25] MEDS: ATORVASTATIN 40 MG TAB PO SCH (22:18)
[2019-01-26] MEDS: LACTATED RINGER'S 1,000 ML IV SCH ×3 (00:06→17:00)
[2019-01-26] MEDS: PIPERACILLIN/TAZOBACTAM 3.375 GM in DEXTROSE 5% 100 ML IV SCH ×2 (05:58→13:41)
[2019-01-26 06:34] LABS: Basophils # (auto) 0.03 K/uL (0-0.2); Basophils % (auto) 0.4 %; Eosinophils % (auto) 2.4 %; Hematocrit (blood only) 38.9 % (42-52); Hemoglobin 13.3 g/dL (14.0-18.0); Immature Granulocytes # (auto) 0.01 K/uL (0.00-0.02); Immature Granulocytes % (auto) 0.1 %; Lymphocytes # (auto) 2.19 K/uL (1.2-3.4); Lymphocytes % (auto) 26.3 %; Mean Corpuscular Hgb Conc 34.2 g/dL (32-36); Mean Corpuscular Volume 91.3 fL (80-100); Mean Platelet Volume 10.3 fL (7.4-10.4); Monocytes # (auto) 0.68 K/uL (0.11-0.59); Monocytes % (auto) 8.2 %; Neutrophils # (auto) 5.22 K/uL (1.4-6.5); Neutrophils % (auto) 62.6 %; Platelet Count 224 K/uL (130-400); RDW Coefficient of Variation 12.6 % (11.5-14.5); RDW Standard Deviation 42.3 fL (36.4-46.3); Red Blood Count 4.26 M/uL (4.7-6.1); White Blood Count 8.33 K/uL (4.8-10.8)
[2019-01-26 06:52] LABS: Albumin Globulin Ratio 0.8 (0.9-2); Albumin Level 2.6 gm/dl (3.4-5.0); BUN Creatinine Ratio 11.8 (10-20); Calcium 8.5 mg/dl (8.5-10.1); Creatinine Clr Calc Pharmacy 42.5 ml/min; Est GFR (African American) 55.7; Globulin 3.1 gm/dl (2.5-4.0); Total Protein 5.7 gm/dl (6.4-8.2)
[2019-01-26 06:54] LABS: Bilirubin,Total 0.5 mg/dl (0.2-1)
--- NOTE | 2019-01-26 07:13 | Family Medicine Progress Note ---
Date of Service January 26, 2019 Assessment & Plan (1) Atrial fibrillation with RVR: 67 y/o M hx HTN, HLD, CKD III, PAF. Presented with palpitations and abdominal pain diffuse x 2 weeks. He denied nausea, vomiting or diarrhea. The pt was diagnosed with AFib 08/2018. Successfully cardioverted at that time and had not reverted to AF since. EKG concerning for AFib with RVR. Denied CP or SOB. HR was in the 160s on arrival to the ER. Initial labs were notable for an elevated lipase and elevated LFTs. Abnormal LFTs/abdominal pain CMP and other laboratory findings are concerning for pancreatitis. CT scan is consistent with pancreatitis unclear etiology mass versus stone. Ultrasound joseph ging was more concerning for a mass of the pancreatic head. Patient has a strong family history of pancreatic cancer. -GI consulted -ERCP on 01/23/19 -concern for pancreatic mass likely cancer, common bile duct stricture which was stented, cholangitis -Arrangements made for upper EUS with FNA of pancreatic head mass today -> plan to d/c after procedure -has been n.p.o. since midnight today -Holding anticoagulation, Xarelto until after procedure -On Zosyn per GI recommendation -> plan to d/c on augmentin -IV antiemetics PRN, IV analgesia PRN -Trend LFTs and lipase -> improving -Patient aware of findings and denied grief support services at this time Diarrhea -developed today after pt started on Zosyn on 01/24 - likely in the setting of being on antibiotic -started on probiotic and encouraged to eat yogurt with meals -will order C. diff test if continues to have diarrhea Hx of PAF with concern for now improved Afib with RVR this admission This episode likely secondary to dehydration. -Diltiazem drip dced - converted and remained in normal sinus rhythm. No signs or symptoms of ACS -Cardiology consulted: -Rhythm control not needed -Converted 25 mg twice daily IR metoprolol to ER 50 mg metoprolol succinate -Transitioned from twice daily Eliquis to daily Xarelto 20 mg - held now for procedure on 01/26 CKD creatinine elevated on admission to 1.69. -Improved s/p IVFs to 1.4 appears to be baseline HTN -Continue home metoprolol -resume lisinopril may resume when YENIFER resolves HLD - continue Atorvastatin Diet: NPO for procedure Code Status: Full code DVT PPX: Eliquis - Held for procedure on 01/26 Dispo: MedSurg with telemetry Supervising Physician Co-Signing Physician Notes I personally examined the patient and verified all castellano points of history and exam, discussed case, and agree with decision making with Dr Vasques. Results & Data Vital Signs (Past 12 Hours) Vital Signs Temp Pulse Pulse Resp BP Pulse Ox 01/26/19 03:00 70 160/76 H 01/26/19 00:05 36.7 C 68 20 168/82 H 95 01/25/19 23:00 64 PG Care Time/CCT Total # of Minutes Spent Total Time Spent with Patient: Total time spent is greater than 50% in coordination of care (as documented) at patient's floor/unit and/or counseling patient: Resident Activity Tracking Resident Involvement: Resident Care Provided Care Provided: Adult Hospital Medicine
[2019-01-26] MEDS: ASPIRIN 81 MG ECTAB PO SCH (08:02)
[2019-01-26] MEDS: PANTOprazole 40 MG TAB PO SCH (08:03)
[2019-01-26] MEDS: SACCHAROMYCES BOULARDII 250 MG CAP PO SCH (08:03)
[2019-01-26] MEDS: METOPROLOL SUCC 50MG EXT REL TAB PO SCH (08:03)
--- NOTE | 2019-01-26 11:04 | Gastroenterology Progress Note ---
Date of Service January 26, 2019 Assessment & Plan (1) Pancreatic mass: Mr. Muñoz is a 68 yr old male with mild pancreatitis, clinically improving and pancreatic mass of the head/uncinate process. Plan: EUS and FNA today by Dr. Dawson. Pt is NPO and hemodynamically stable. For now, please continue Zosyn (elevated WBC yesterday) and IV fluids until full resolution of pancreatitis. Continue to hold ASA, Eliquis for now. Present on Admission?: Yes Supervising Physician Co-Signing Physician Notes I saw and evaluated the patient. We are planning for endoscopic ultrasound today to evaluate pancreatic mass. After the procedure if the patient is doing well he can likely be discharged this afternoon or early this evening. Subjective MR. Muñoz is a 77 yr old male who was admitted on 01/23 with abdominal pain, CT, MRI with pancreatic mass, underwent ERCP on 01/23 with findings of CBD (stricture in the lower 1/3) with sphincterotomy and placement of a CBD stent. Plan is for EUS with FNA of pancreatic mass today. Currently awaiting OR and endoscopy nursing availability. Pt is hemodynamically stable and denies any cur rent abd pain. He is NPO. On OP Eliquis - not taken since 01/22) and ASA 81 (not taken since 01/22). On Zosyn. WBC 12 yesterday, 8 today. Hb 13.3. Denies any gross GI bleeding. Review of Systems Review of Systems: ROS: Gen: Denies weakness, fevers, weight loss Eyes: No eye redness, or pain, no recent vision changes Resp: No SOB, no cough Cardio: No palpitations/irregular beats, no chest pain GI: + abdominal pain on arrival, now very minimal, no nausea/vomiting; no GI bleeding. : Denies pain on urination Skin: No jaundice, itching or new rashes Physical Exam Constitutional: WD/WN, vitals as above Eyes: PERRL, conjunctivae normal, anicteric sclerae ENMT: external ear and nose normal, oropharynx normal Neck: trachea midline, no thyromegaly Respiratory: normal respiratory effort, lungs clear to auscultation Cardiovascular: RRR, no murmur, no edema Gastrointestinal (Abdomen): Inspection/Auscultation: + hypoactive bowel sounds Percussion/Palpation: abdomen soft; abdomen nontender and no hepatosplenomegaly Musculoskeletal: Head/Neck/Chest: + head abnormal to inspection Skin: no rashes, warm and dry Neurologic: PERRL, EOMI, accommodation nl, no face palsy, no dysarthria Psychiatric: A+Ox3, euthymic affect Lymphatic: no cervical or axillary lymphadenopathy Results & Data Vital Signs (Past 12 Hours) Vital Signs Temp Pulse Pulse Resp BP Pulse Ox 01/26/19 08:57 64 01/26/19 07:23 36.9 C 72 16 148/83 H 96 01/26/19 03:00 70 160/76 H 01/26/19 00:05 36.7 C 68 20 168/82 H 95 01/25/19 23:00 64 Diagnostic Findings US 01/23/19: .5 cm hypoechoic mass-like abnormality within the pancreatic head, 8mm CBD. CTAP with IV contrast 01/23/19: Mild pancreatitis. Subtle 4.1 cm hypoechoic density focus within the pancreatic head. MRCP 01/23/19: Possible 3.5 cm partially enhancing lesion juncture pancreatic head and uncinate process. Narrowing of the distal common bile duct ERCP 01/24: A single severe biliary stricture lower 1/3 of the main bile duct. The upper and middle third of the main bile duct were moderately dilated.
--- NOTE | 2019-01-26 14:01 | Anesthesiology Consultation ---
Date of Service January 26, 2019 Assessment & Plan (1) Encounter for pre-operative examination: Chart Review Chart Review: Acceptable Risk for Surgery and Patient NOT seen in Pre Admission Testing Consults Requested none Additional Notes Tolerated GA for ERCP on 01/23/19 without apparent complications History Surgery Operation Date: 01/23/19 13:35 Proposed Procedures p Endoscopic Retrograde Cholangiopancreatogram - Heather Schmitt MD Operation Date: 01/26/19 09:20 Proposed Procedures p Endoscopic Ultrasonography [place] - Mague Dawson Height/Weight Height: 5 ft 6 in Weight: 71.3 kg Allergies Allergy/AdvReac Type Severity Reaction Status Date / Time No Known Allergies Allergy Verified 01/23/19 03:36 Medications Home Medications Medication Instructions Recorded Confirmed Last Taken aspirin [Adult Low Dose Aspirin] 81 mg PO .ON HOLD 08/09/18 01/23/19 Unknown lisinopril [Zestril] 20 mg PO DAILY 08/09/18 01/23/19 01/22/19 apixaban [Eliquis] 5 mg PO BID #60 tab 08/12/18 01/23/19 01/22/19 atorvastatin 40 mg PO HS #30 tab 08/12/18 01/23/19 01/22/19 metoprolol tartrate 25 mg PO BID #60 tab 08/12/18 01/23/19 01/22/19 Active Medications Generic Name Dose Route Start Last Admin Trade Name Freq PRN Reason Stop Dose Admin Aspirin 81 mg 01/23/19 09:00 01/26/19 08:02 Ecotrin Ectab PO 02/22/19 08:59 Not Given DAILY SILVIA Atorvastatin Calcium 40 mg 01/23/19 21:00 01/25/19 22:18 Lipitor PO 02/22/19 20:59 40 mg HS SILVIA Administration Gadobutrol 6.5 ml 01/23/19 19:39 01/23/19 19:40 Gadavist 65ml IV 01/27/19 19:38 6.5 ml ONCE PRN Administration Interaction Checking Piperacillin Sod/Tazobactam 115 mls @ 28.75 mls/hr 01/24/19 22:00 01/26/19 13:41 Sod 3.375 gm/ Dextrose IV 02/03/19 21:59 28.8 mls/hr Q8H SILVIA Administration Protocol Lactated Ringer's 1,000 mls @ 125 mls/hr 01/26/19 00:05 01/26/19 08:03 Lr IV 02/25/19 00:04 125 mls/hr .Q8H SILVIA Administration Ioversol 100 ml 01/23/19 05:50 01/23/19 05:50 Optiray 320 100ml IV 01/27/19 05:49 92 ml ONCE PRN Administration Interaction Checking Metoprolol Succinate 50 mg 01/24/19 09:00 01/26/19 08:03 Toprol Xl PO 02/23/19 08:59 50 mg QAM SILVIA Administration Pantoprazole Sodium 40 mg 01/24/19 09:00 01/26/19 08:03 Protonix PO 02/23/19 08:59 40 mg BID SILVIA Administration Saccharomyces Boulardii 250 mg 01/25/19 11:45 01/26/19 08:03 Florastor PO 02/24/19 11:44 250 mg DAILY SILVIA Administration NPO Date Last Intake of Fluids: 01/22/19 Date Last Intake of Solids: 01/22/19 Past Medical History Medical History HTN (hypertension) (Chronic) Afib CAD (coronary artery disease) CKD (chronic kidney disease) HOCM (hypertrophic obstructive cardiomyopathy) Hyperlipidemia NSTEMI (non-ST elevated myocardial infarction) Past Surgical History Surgical History No pertinent past surgical history H/O colonoscopy H/O eye surgery H/O foot surgery Social History Smoking Status: Never smoker Hx Alcohol Use: Yes alcohol intake frequency: holidays/special occasions only Hx Substance Use: No substance use type: does not use Physical Exam Vital Signs Last Vital Signs Temp 37 C 01/26/19 11:48 Pulse 61 01/26/19 11:48 Resp 18 01/26/19 11:48 BP 166/87 H 01/26/19 11:48 Pulse Ox 96 01/26/19 11:48 Testing Laboratory Results 01/26/19 06:28 01/26/19 06:28 Electrocardiogram Date: 08/10/18 Findings: + AFIB @ (at 77;NS T wave abnormality) Chest X-Ray Date: 08/09/18 Findings: + NAD Echocardiogram Date: 08/10/18 EF: > 75 LV Function: hyperdynamic LV function RWMA: + none Other Findings: + atrial enlargement (mild LA) and + LVH (mild) Valvular Disease: + MR (moderate) 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
[2019-01-26] MEDS ORDERED: fentaNYL citrate 100 MCG/2 ML VIAL ONE (14:06)
--- NOTE | 2019-01-26 14:24 | Discharge Summary ---
Date of Service January 26, 2019 Admission HPI Per Admitting Provider 67 y/o M hx HTN, HLD, CKD III, PAF. Presents with palpitations and abdominal pain. The pt was diagnosed with AF 08/2018. He was successfully cardioverted at that time and had not reverted to AF since. He developed tachycardia today and recognized that this was likely AF, presenting to the hospital therefore. He denies CP or SOB. He did however, c/o diffuse abdominal pain over the past 2 weeks. The pt's HR was in the 160s on arrival to the ER. Initial labs were notable for an elevated lipase and elevated LFTs. He denies nausea, vomiting or diarrhea. 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 Chest/heart: Tachy, irreg, no murmurs Lungs: CTAB, no wheezing or crackles Abdomen: Minimal tenderness to palpation, no RUQ pain Neuro: AAO x 3, speech is clear, no unilateral weakness or loss of sensation, coordination intact Musculoskeletal: No joint inflammation, muscle tenderness, FROM Skin: No acute rashes or ulcers Extremities: No clubbing, cyanosis, edema Principal Diagnosis Afib RVR, Pancreatitis 2/2 mass Discharge Exam General: No acute distress HEENT: Normocephalic atraumatic Neck: Normal to visual inspection, negative JVD, trachea central Cardiac: Regular rate and rhythm, normal S1 normal negative calf tenderness, negative edema Respiratory: CTA BL GI: Intermittent tenderness normal bowel sounds nontender nondistended MSK: Moves all extremity Skin: No new rashes Neuro: Alert and oriented Psych: Cooperative Discharge Data Allergies Allergy/AdvReac Type Severity Reaction Status Date / Time No Known Allergies Allergy Verified 01/26/19 14:05 Consultations 01/23/19 06:38 ED Decision to Admit Stat 01/23/19 06:50 Consult Gastroenterology Routine 01/23/19 07:36 Consult Cardiology Routine Procedures Performed Operation Date: 01/23/19 13:35 Actual Procedures p Endoscopic Retrograde Cholangiopancreatogram(Not Applicable) - Heather Schmitt MD Operation Date: 01/26/19 09:20 <No data on this case meets the specified criteria> Ordered Studies 01/23/19 [place] ERCP biliary ductal Routine 01/23/19 03:25 US gallbladder Urgent 01/23/19 05:01 CT abd pelvis IV con only Urgent 01/23/19 17:00 MR abdomen wo/w con Stat Hospital Course (1) Atrial fibrillation with RVR: 67 y/o M hx HTN, HLD, CKD III, PAF. Presented with palpitations and abdominal pain diffuse x 2 weeks. He denied nausea, vomiting or diarrhea. The pt was diagnosed with AFib 08/2018. Successfully cardioverted at that time and had not reverted to AF since. EKG concerning for AFib with RVR. Denied CP or SOB. HR was in the 160s on arrival to the ER. Initial labs were notable for an elevated lipase and elevated LFTs. Abnormal LFTs/abdominal pain CMP and other laboratory findings are concerning for pancreatitis. CT scan is consistent with pancreatitis unclear etiology mass versus stone. Ultrasound imaging was more concerning for a mass of the pancreatic head. Patient has a strong family history of pancreatic cancer. 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 Patient's liver function tests improved he was maintained on Zosyn per GI recommendation. patient was made n.p.o. and anticoagulation was held for upper EUS with FNA of pancreatic head mass preformed on 01/26/2019. -Results pending, patient to follow-up with GI as an outpatient -D/C on 8 day course of Oral Augmentin 875/125 Diarrhea Developed today after pt started on Zosyn on 01/24. Likely secondary to antibiotic. Probiotic started and encouraged to eat yogurt. Not concerning for C. difficile at this time, if diarrhea persists as an outpatient would consider testing for C. difficile Atrial fibrillation with RVR She presented to the hospital complaining of chest pain. He was determined to be in atrial fibrillation with rapid ventricular rate, this is a second episode. Previous episode was treated with cardioversion. Patient was administered fluids and placed on diltiazem drip. Patient spontaneously converted status post fluids until. Cardiology was consulted, they did not recommend further rhythm control at this point. They recommended converting 25 mg IR metoprolol to ER 50 mg metoprolol succinate, and to transition twice daily Eliquis to daily Xarelto 20 mg. Patient has had no further complications of atrial fibrillation or chest pain/chest pressure throughout this admission. CKD creatinine elevated on admission to 1.69, improved s/p IVFs to 1.4, this appears to be his baseline HTN -Continued home metoprolol -Holding lisinopril may resume when YENIFER resolves HLD - continued Atorvastatin Diet:NPO for procedure, resume low fat diet Code Status: Full code DVT PPX: Eliquis - Held for procedure on 01/26 Dispo: MedSurg with telemetry Total Time Total Time Spent Total Time Spent (In Minutes): <30 Discharge Plan Discharge Items Patient Disposition: Home - Self-Care Reason For Visit: PALPITATIONS Discharge Diagnosis: Afib and pancreatitis secondary to mass Discharge Goals: Decrease discomfort, Diagnostic testing and Therapeutic intervention Activity: Resume your previous activity Activity Comment: as tolerated Non-emergency contact: Primary Care Provider and Application Support Lead Call non-emergency contact if: you have any medication questions, your symptoms worsen and your temperature is above 100.5 Follow-up/Referrals: French Arroyo, [Primary Care Provider] - Diet: Low Fat Addtl Provider Instructions: Care instructions: You were admitted to [facility] for treatment of atrial fibrillation with rapid ventricular rate and pancreatitis secondary to pancreatic mass. Initially on presentation the hospital your A. fib with rapid ventricular rate was treated with both a fluid bolus and a diltiazem drip. You spontaneously converted to normal sinus rhythm after these therapies. Admission testing and clinical symptoms of abdominal pain nausea and vomiting also demonstrated that you were concurrent pancreatitis. This was further worked up with CT and ultrasound. Both of these were concerning for a pancreatic mass. An ERCP was performed demonstrated a pancreatic mass as well, this could be related to an autoimmune condition or malignancy. You were subsequently cata eduled for an EUS and biopsy of the mass. You tolerated the procedure well and were discharged that same day. -It is of the utmost importance that you follow-up with your district court bailiff when the results of your biopsy returned. We request that you follow-up with your primary care physician within 2 weeks of discharge from the hospital -As far as appointments getting scheduled, expect Dr Dawson's office to be calling you Saturday or no later than to set up follow ups; from there, we'd expect you to be seen by oncology sometime next week. We'd also want you getting surgical opinions over the next week or two as well. If you need help or have any trouble with scheduling follow up appointments and evaluations, please call us at [phone] (Dipti will answer, ask her to pass a long your needs to our nurse navigator - Karina Angela, who then will get things set up) -We recommend that you consume a low-fat diet for approximately 1 week after discharge to allow your pancreas to rest secondary to pancreatitis A discharge summary will be sent to your primary care physician to ensure continuity of care.Please bring this discharge summary with you to your next office appointment so that your provider can review it at that time. Follow-up appointments: - Keep all your follow-up appointments as already scheduled. If you cannot make an appointment, notify your provider. - Please call to request a follow-up appointment with your primary care physician within one week of discharge. Please let us know if you are unable to obtain an appointment Medications: - Your medication list has been reviewed and reconciled upon discharge to ensure accuracy and continuity of care. - You are provided with a list of all your current medications at this time. Please review this list closely and make note of any changes. - Please take all of your medications exactly as prescribed. - Tell your primary care provider if you cannot afford your medications. - Call your primary care provider if you are having any side effects or any other problems. - Call your primary care provider before taking any over the counter medications or supplements, including herbals and vitamins, because some of these may interact with your current medications and/or make your symptoms worse. While hospitalized we made some medication changes, your Eliquis was stopped and transition to 20 mg of Xarelto to be taken with food daily. Your metoprolol tartrate 25 mg twice daily was transitioned to metoprolol supinate 50 mg once per day. He was started on pantoprazole 40 mg 2 times a day. He was started on a probiotic. While in the hospital you were provided with antibiotic coverage with a medication called Zosyn. This was transitioned to Augmentinl on discharge you are to complete an 8-day course of Augmentin taking 2 pills twice per day. This medication may cause some stomach upset taking with food may decrease discomfort. You are medications have been called into the [facility] on [facility]. Symptoms: Please call your primary care provider for symptoms including, but not limited to: fevers (temperatures greater than 100.4), chills, intractable nausea or vomiting, diarrhea, rash, shortness of breath, bleeding, pain, or if you experience any worsening of the symptoms that brought you to the hospital. For EMERGENCY and VERY SERIOUS health-related issues, such as chest pain, shortness of breath, or sudden onset of the symptoms that brought you to the hospital, you may need to call 911 or go directly to the Emergency Room It has been our privilege to take care of you during your hospital stay. And Above All Else Feel Better! Best Wishes, Leo Vasques MD PGY1 Resident, Family & Community Medicine [facility] - [address], [address] MC: [place] [address] Prescriptions: New metoprolol succinate 50 mg Tablet Extended Release 24 Hr 50 mg PO QAM 30 Days Qty: 30 RF: 0 pantoprazole 40 mg Tablet,Delayed Release (Dr/Ec) 40 mg PO BID 30 Days Qty: 60 RF: 0 Florastor 250 mg Capsule 250 mg PO DAILY 30 Days Qty: 30 RF: 0 Xarelto 20 mg tablet 20 mg PO DAILY 30 Days Qty: 30 RF: 6 amoxicillin-pot clavulanate 875-125 mg tablet 1 tab PO BID 8 Days Qty: 16 RF: 0 Continued lisinopril [Zestril] 20 mg tablet 20 mg PO DAILY RF: 0 aspirin [Adult Low Dose Aspirin] 81 mg tablet,delayed release (DR/EC) 81 mg PO .ON HOLD RF: 0 atorvastatin 40 mg Tablet 40 mg PO HS Qty: 30 RF: 5 Discontinued metoprolol tartrate 25 mg Tablet 25 mg PO BID Qty: 60 RF: 5 Eliquis 5 mg tablet 5 mg PO BID Qty: 60 RF: 5 Stand-Alone Forms: My [facility] Discharge Orders: Discharge Order (Routine); Ordered 01/26/19 Ordered By: Leo Vasques Admission Data Admit Date/Time: 01/23/19 04:46 Attending Provider: César Dawn Admit Provider: Allen Elias Primary Care Provider: French Arroyo Other Providers: Allen Elias ; Santiago Chen ; Luc Vásquez ; Black Bales Service: Telemetry Other Interventions: Discharge Summary Assessment (RN) Last Done: 01/26/19 17:51 Supervising Physician Co-Signing Physician Notes I personally examined the patient and verified all castellano points of history and exam, discussed case, and agree with decision making with Dr Vasques. feeling ok up to going home extensive discussion of next steps to the best of my ability vitals noted nad breathing unlabored no pallor or icterus, walking w normal gait and no focal deficits pancreatic mass - biopsy done, path pending. stable for discharge to home. close outpt f/u. finish course of abx as above otherwise as above Resident Activity Tracking Resident Involvement: Resident Care Provided Care Provided: Adult Hospital Medicine
--- NOTE | 2019-01-26 14:55 | GI REPORT ---
Patient Name: Lito Muñoz Procedure Date: 01/26/2019 2:36 PM Date of : 1950 Admit Type: Inpatient Age: 68 Gender: Male Attending MD: Mague Dawson DO Procedure: Upper GI endoscopy Providers: Mague Dawson DO Referring MD: Heather Schmitt MD, French Walter Indications: Abnormal CT of the GI tract, Abnormal MRI of the GI tract Medicines: General Anesthesia, Monitored Anesthesia Care Complications: No immediate complications. Estimated blood loss: Minimal. Estimated Blood Loss: Estimated blood loss was minimal. Procedure: Pre-Anesthesia Assessment: - Prior to the procedure, a History and Physical was performed, and patient medications, allergies and sensitivities were reviewed. The patient's tolerance of previous anesthesia was reviewed. - The risks and benefits of the procedure and the sedation options and risks were discussed with the patient. All questions were answered and informed consent was obtained. - Patient identification and proposed procedure were verified prior to the procedure by the physician, the nurse and the president of the [place]. The procedure was verified in the procedure room. - Pre-procedure physical examination revealed no contraindications to sedation. - ASA Grade Assessment: III - A patient with severe systemic disease. - After reviewing the risks and benefits, the patient was deemed in satisfactory condition to undergo the procedure. - The anesthesia plan was to use monitored anesthesia care (MAC). - Immediately prior to administration of medications, the patient was re-assessed for adequacy to receive sedatives. - The heart rate, respiratory rate, oxygen saturations, blood pressure, adequacy of pulmonary ventilation, and response to care were monitored throughout the procedure. - The physical status of the patient was re-assessed after the procedure. After obtaining informed consent, the endoscope was passed under direct vision. Throughout the procedure, the patient's blood pressure, pulse, and oxygen saturations were monitored continuously. The Endoscope was introduced through the mouth, and advanced to the third part of duodenum. The upper GI endoscopy was accomplished without difficulty. The patient tolerated the procedure well. Findings: The examined esophagus was normal. The Z-line was regular and was found 35 cm from the incisors. Diffuse mild inflammation characterized by erythema and granularity was found in the entire examined stomach. Biopsies were taken with a cold forceps for histology. Estimated blood loss was minimal. Patchy moderate inflammation characterized by granularity and shallow ulcerations was found in the entire duodenum. Biopsies were taken with a cold forceps for histology. Estimated blood loss was minimal. A previously placed plastic stent was seen at the major papilla. Impression: - Normal esophagus. - Z-line regular, 35 cm from the incisors. - Gastritis. Biopsied. - Duodenitis. Biopsied. - Plastic stent in the duodenum. Recommendation: - Perform an upper endoscopic ultrasound (UEUS) today. - Use Prilosec (omeprazole) 20 mg PO daily. Mague Dawson D.O. Mague Dawson DO 01/26/2019 2:54:47 PM This report has been signed electronically. Note Initiated On: 01/26/2019 2:36 PM Number of Addenda: 0 I attest to the content of the Intraoperative Record and orders documented therein, exceptions below {[id number]}
[2019-01-26] MEDS ORDERED: ONDANSETRON INJ 2 MG/ML 2 ML VIAL IV PRN (14:59)
[2019-01-26] MEDS ORDERED: ePHEDrine sulfate 50 MG/ML AMP IV PRN (14:59)
[2019-01-26] MEDS ORDERED: ATROPINE SULFATE 0.1 MG/ML 10ML SYR IV PRN (14:59)
[2019-01-26] MEDS ORDERED: fentaNYL citrate 100 MCG/2 ML VIAL IV PRN (14:59)
[2019-01-26] MEDS ORDERED: LIDOCAINE HCL 2% 2 ML VIAL/AMP(20MG/ML) INFIL ONE (15:02)
[2019-01-26] MEDS ORDERED: ONDANSETRON INJ 2 MG/ML 2 ML VIAL ONE (15:02)
[2019-01-26] MEDS ORDERED: PROPOFOL IV EMULSION 10 MG/ML 20 ML VIAL IV ONE (15:02)
--- NOTE | 2019-01-26 15:41 | Post Operative Brief Note ---
Immediate Post Op Note v1 Date of Surgery January 26, 2019 Pre & Post Diagnosis pre-op pancreatic mass Post-op pancreatic mass EGD and EUS with FNA. Procedure Procedure: EUS with FNA EGD with biopsy Surgeon Mague Dawson Nail Artist None Estimated Blood Loss 0 Findings Consistent with Post-Op Diagnosis
--- NOTE | 2019-01-26 15:55 | GI REPORT ---
Patient Name: Lito Muñoz Procedure Date: 01/26/2019 2:39 PM Date of : 1950 Admit Type: Inpatient Age: 68 Gender: Male Attending MD: Mague Dawson DO Procedure: Upper EUS Providers: Mague Dawson DO Referring MD: French Walter, Heather Schmitt MD Indications: Suspected mass in pancreas on CT scan Medicines: Monitored Anesthesia Care Complications: No immediate complications. Estimated blood loss: Minimal. Estimated Blood Loss: Estimated blood loss was minimal. Procedure: Pre-Anesthesia Assessment: - Prior to the procedure, a History and Physical was performed, and patient medications, allergies and sensitivities were reviewed. The patient's tolerance of previous anesthesia was reviewed. - The risks and benefits of the procedure and the sedation options and risks were discussed with the patient. All questions were answered and informed consent was obtained. - Patient identification and proposed procedure were verified prior to the procedure by the physician, the nurse and the hospitality workers. The procedure was verified in the procedure room. - Pre-procedure physical examination revealed no contraindications to sedation. - ASA Grade Assessment: III - A patient with severe systemic disease. - After reviewing the risks and benefits, the patient was deemed in satisfactory condition to undergo the procedure. - The anesthesia plan was to use monitored anesthesia care (MAC). - Immediately prior to administration of medications, the patient was re-assessed for adequacy to receive sedatives. - The heart rate, respiratory rate, oxygen saturations, blood pressure, adequacy of pulmonary ventilation, and response to care were monitored throughout the procedure. - The physical status of the patient was re-assessed after the procedure. After obtaining informed consent, the endoscope was passed under direct vision. Throughout the procedure, the patient's blood pressure, pulse, and oxygen saturations were monitored continuously. The Scope was introduced through the mouth, and advanced to the second part of duodenum. The Endosonoscope was introduced through the mouth, and advanced to the second part of duodenum. The upper EUS was accomplished without difficulty. The patient tolerated the procedure well. Findings: ENDOSONOGRAPHIC FINDING: : One stent was visualized endosonographically in the common bile duct. Extension of the stent was noted in the common bile duct. Minimal hyperechoic material consistent with sludge was visualized endosonographically in the gallbladder. A cyst was found in the left lobe of the liver and measured 12 mm by 10 mm in maximal cross-sectional diameter. The cyst was anechoic. It was without septae. The outer wall of the lesion was not seen. There was no sign of significant endosonographic abnormality in the left adrenal gland. No adrenal gland enlargement was identified. No lymph nodes were seen during endosonographic examination in the subcarinal mediastinum (level 7), in the gastrohepatic ligament (level 18), in the celiac region (level 20) and in the perigastric region. One enlarged lymph node was visualized in the nu hepatis region. It measured 5 mm by 6 mm in maximal cross-sectional diameter. The node was oval, hypoechoic and had well defined margins. Pancreatic parenchymal abnormalities were noted in the pancreatic body and pancreatic tail. These consisted of lobularity without honeycombing. An irregular mass was identified in the pancreatic head. The mass was hypoechoic. The mass measured 37 mm by 34 mm in maximal cross-sectional diameter. The outer margins were irregular. There was sonographic evidence suggesting invasion into the gastroduodenal artery (manifested by abutment) and the portal vein (manifested by interface loss less than 15 mm). An intact interface was seen between the mass and the superior mesenteric artery, celiac trunk and duodenum suggesting a lack of invasion. The remainder of the pancreas was examined. The endosonographic appearance of parenchyma and the upstream pancreatic duct indicated no duct dilation and parenchymal atrophy. Fine needle aspiration for cytology was performed. Color Doppler imaging was utilized prior to needle puncture to confirm a lack of significant vascular structures within the needle path. Eight passes were made with the 22 gauge needle and with the 25 gauge needle using a transduodenal approach. A stylet was used. A big data platform architect was present and performed a preliminary cytologic examination. Final cytology results are pending. Estimated blood loss was minimal. Impression: - One stent was visualized endosonographically in the common bile duct. - Hyperechoic material consistent with sludge was visualized endosonographically in the gallbladder. - A cyst was found in the left lobe of the liver and measured 12 mm by 10 mm. - Endosonographic images of the left adrenal gland were unremarkable. - One enlarged lymph node was visualized in the nu hepatis region. - Pancreatic parenchymal abnormalities consisting of lobularity were noted in the pancreatic body and pancreatic tail. - A mass was identified in the pancreatic head. This was staged T2 N1 M0 by endosonographic criteria. The staging applies if malignancy is confirmed. Fine needle aspiration performed. Recommendation: - [facility] May consider discharge this afternoon. - Advance diet as tolerated today. - Await cytology results. Will refer to surgical oncology and medical oncology once pathology is avaialable. - Complete a 10 day course of antibiotic coverage (per Dr. Schmitt). Mague Dawson D.O. Mague Dawson, DO 01/26/2019 3:54:43 PM This report has been signed electronically. Note Initiated On: 01/26/2019 2:39 PM Number of Addenda: 0 I attest to the content of the Intraoperative Record and orders documented therein, exceptions below {[id number]}
--- NOTE | 2019-01-26 15:57 | Communication Note ---
Date of Service: January 26, 2019 The patient underwent EUS this afternoon. 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 There was also very small lymph nodes seen in the gastrohepatic lesion, this was not biopsied as it was adjacent to the mass Recommendations Regular diet today, patient may be discharged from my perspective Pathology results are pending, we will take care of surgical oncology and medical oncology referral once cytology is available Complete a 10-day course of broad-spectrum antibiotics based on results of ERCP from last week
--- NOTE | 2019-01-26 16:13 | Anesthesiology Progress Note ---
Date of Service January 26, 2019 Anesthesia Post Procedure Vital Signs Vital Signs: Temp Pulse Pulse Pulse Resp BP BP 01/26/19 16:05 48 L 24 182/88 H 01/26/19 15:55 59 L 20 139/77 01/26/19 15:48 96.8 F L 63 20 158/77 H 01/26/19 14:06 97.9 F 64 18 166/86 H 01/26/19 11:48 98.6 F 61 18 166/87 H 01/26/19 08:57 64 01/26/19 07:23 98.4 F 72 16 148/83 H 01/26/19 03:00 70 160/76 H 01/26/19 00:05 98.1 F 68 20 168/82 H 01/25/19 23:00 64 Pulse Ox 01/26/19 16:05 99 01/26/19 15:55 100 01/26/19 15:48 93 01/26/19 14:06 99 01/26/19 11:48 96 01/26/19 08:57 01/26/19 07:23 96 01/26/19 03:00 01/26/19 00:05 95 01/25/19 23:00 Transfer of Care Handoff Completed per policy Notes Mental Status: alert / awake / arousable and participated in evaluation Patient Amnestic to Procedure: Yes Nausea / Vomiting: adequately controlled Pain: adequately controlled Airway Patency, RR, SpO2: stable & adequate BP & HR: stable & adequate Hydration State: stable & adequate Anesthetic Complications: no major complications apparent and Pt Satisfied with anesthetic care
[2019-01-26] MEDS ORDERED: HydrALAZINE HCL 20 MG/ML VIAL ONE (16:25)
[2019-01-26] MEDS ORDERED: HydrALAZINE HCL 20 MG/ML VIAL IV STA (16:33)
== END 2019-01-26 18:34 | disposition home or self-care (01) | DRG 309 ==
LOC: ED 02:02 → SUATTDRO 04:46 → 2E 04:46

== ENCOUNTER 2019-02-09 08:49 | Inpatient (IN) ==
--- NOTE | 2019-02-09 09:18 | Emergency Department Note ---
ED Provider Note CHIEF COMPLAINT: Epigastric pain, nausea HISTORY OF PRESENTING ILLNESS: This is a 68-year-old male with past medical history significant for atrial fibrillation on Xarelto, coronary artery disease, hypertension, dyslipidemia, and recent stent placement to the common bile duct secondary to a pancreatic head mass, who presents to the emergency department today by private vehicle with complaint of epigastric pain, nausea, and poor appetite for the past 2 days. Patient states that he had similar symptoms prior to his stent placement, which was placed 1-1/2 weeks ago, and he states that his symptoms initially resolved completely after the stent was placed. He also reports that his liver tests returned to normal after the stent was placed. Patient describes the pain in the epigastric and right upper quadrant, constant, describes it as a discomfort and aching, worse with eating and drinking, and currently rates the pain as 6/10. He has tried Tylenol for the pain without improvement. He has had associated nausea and a poor appetite, and feels that it is difficult to eat or drink because of the pain, but denies any vomiting. He is concerned that he may be getting dehydrated, which is why he came to the ER today. He denies any fevers/chills or generalized malaise. He denies any chest pain, shortness of breath, dizziness, palpitations, back pain, urinary complaints, or unusual rash. He had a normal bowel movement this morning and denies any diarrhea, bloody or black stools. REVIEW OF SYSTEMS: A complete 10 point review of systems was reviewed with the patient with pertinent positives and negatives as per history of present illness. All else were negative. PAST MEDICAL HISTORY: Atrial fibrillation, hypertension, hyperlipidemia, coronary artery disease, hypertrophic obstructive cardiomyopathy, pancreatic mass, chronic kidney disease SOCIAL HISTORY: Lives at home, he denies tobacco use ALLERGIES: No known allergies PHYSICAL EXAM: CONSTITUTIONAL: Pleasant and cooperative. Nontoxic-appearing and in no acute di stress. Moderately dehydrated. Otherwise well appearing and well nourished. HEENT: Normocephalic, atraumatic. PERRL, EOMI. Pharynx normal. Dry mucous membranes. NECK: Supple, full active range of motion without discomfort. RESPIRATORY: Clear to auscultation bilaterally with no wheezing, crackles, rhonchi or stridor. Equal expansion bilaterally. CARDIOVASCULAR: Regular rate and rhythm with no murmurs, rubs or gallops. Normal peripheral perfusion. No edema. GASTROINTESTINAL: Moderately tender to palpation in the epigastric and right upper quadrant region, abdomen is otherwise nontender, soft and nondistended. No rebound tenderness or guarding. No palpable masses or HSM. Bowel sounds pres ent in all quadrants. No CVA tenderness bilaterally. MUSCULOSKELETAL: Full range of motion of all joints without discomfort. INTEGUMENTARY: No rash or other significant dermatologic conditions noted. NEUROLOGIC: Alert and oriented X 4 with normal affect. Normal speech. Normal gait observed. ED COURSE AND MEDICAL DECISION MAKING: CC: Patient presenting with complaint of epigastric pain, nausea DIFFERENTIAL DIAGNOSIS: Includes, but not limited to cholecystitis, cholelithiasis, pancreatitis, cholangitis, stent malfunction/obstruction, gastritis, peptic ulcer disease, small bowel obstruction, ACS, among others. INTERPRETATION OF LABS: Mild leukocytosis, no anemia, normal platelets, no significant electrolyte abnormalities, slightly elevated BUN and creatinine (consistent with baseline), markedly elevated T bili and liver enzymes, elevated lipase. Coagulation factors within normal limits. Lactic acid within normal limits. Troponin negative. IMAGING: CT SCAN OF THE ABDOMEN AND PELVIS WITH IV CONTRAST CLINICAL HISTORY: Epigastric abdominal pain. Pancreatic mass. COMPARISON STUDY: Abdominal CT dated 01/23/2019. Abdominal MRI dated 01/23/2019. TECHNIQUE: Following the IV administration of 92 cc of Optiray 320, CT scan of the abdomen and pelvis is performed from the lung bases to the proximal femora. Images are reviewed in the axial, sagittal, and coronal planes. IV contrast was administered without complication. A dose lowering technique was utilized adhering to the principles of ALARA. CT DOSE: 376.82 mGy.cm FINDINGS: Lung bases: The heart is normal in size and without pericardial effusion. There is bibasilar scarring/atelectasis. No airspace consolidation or pleural effusion is identified. Liver: The contrast-enhanced liver is normal in size, contour, and attenuation. There is minimal central intrahepatic biliary ductal dilatation. No pneumobilia is seen. The hepatic veins and portal veins are patent. Scattered hepatic cysts measure up to 2.1 cm. Additional subcentimeter hypodensities also likely represent cysts but are too small for definitive characterization. A 2.11 Gallbladder: The gallbladder is distended. The gallbladder wall is thickened and hyperemic and there is pericholecystic stranding and fluid. The appearance is concerning for acute cholecystitis. A common bile duct stent is in appropriate position. The common bile duct is dilated, measuring up to 10 mm diameter. The wall of the common bile duct appears thickened and hyperemic. Inflammatory change is seen around the common bile duct and the in the hepatic hilum. Spleen: Normal in size and attenuation. Pancreas: An infiltrative mass lesion is again seen in the pancreatic head. This is not well delineated. The pancreatic duct is normal in caliber. Mild peripancreatic stranding is noted. Adrenal glands: Unremarkable. Kidneys: There is markedly asymmetric cortical atrophy of the right kidney as compared to the left. Parapelvic cysts are again seen on the left. The left kidney enhances homogeneously. Abdominal vasculature: The abdominal aorta is normal in course and caliber noting moderate atherosclerotic calcification. Bowel: Colonic fecal retention is noted. No bowel obstruction is identified. The appendix is well-visualized and normal. Peritoneum: There is no intraperitoneal free air or abdominal ascites. There is a small fat-containing umbilical hernia. Foci of induration within the ventral abdominal wall are likely related to subcutaneous injections. Lymphadenopathy: A prominent portacaval node measures 1.5 cm in short axis. Pelvic viscera: The prostate gland is enlarged and heterogeneous. The bladder wall is thickened and trabeculated indicating chronic outlet obstruction. A left-sided varicocele is noted. Skeletal structures: The skeletal structures are osteopenic. There is mild lumbosacral spondylosis. No lytic or blastic lesions are seen. IMPRESSION: 1. An infiltrative mass lesion is again suggested in the pancreatic head. This is not well delineated on today's examination. 2. A common bile duct stent is in appropriate position. 3. The common bile duct is dilated, and the wall of the common bile duct is thickened and hyperemic. There is surrounding inflammatory change which extends extends to the hepatic hilum. Correlate clinically for evidence of infection/cholangitis. 4. The gallbladder is distended. The gallbladder wall is thickened and hyperemic and there is pericholecystic stranding and fluid. The appearance is typical for cholecystitis. Again, clinical correlation will be required. 5. There is mild peripancreatic stranding. Correlate with serum amylase/lipase levels for evidence of acute pancreatitis. 6. Prominent upper abdominal lymph nodes are nonspecific. 7. There is minimal intrahepatic biliary ductal dilatation. No pneumobilia is seen. 8. Additional findings as above. EKG: Shows normal sinus rhythm with a rate of 80 bpm, normal intervals, no ST or T wave abnormalities, no ectopy, sinus rhythm has replaced atrial fibrillation when compared to previous EKG from 01/23/2019 by my interpretation. MEDICATION RECONCILIATION: I attest that I have personally reviewed the patient's current medication list. INITIAL VITAL SIGNS REVIEW: I reviewed the patient's initial vital signs and interpret them as follows: T: Afebrile; BP: Normotensive; HR: Within normal limits; RR: Within normal limits; Pulse Ox: Within normal limits on room air. Blood pressure screening: The patient was found to have normal blood pressure on screening and does not require follow-up for repeat blood pressure check. MDM SUMMARY: Patient was evaluated at bedside, history and physical exam performed. Patient is alert and oriented, in no acute distress, resting calmly in stretcher. Patient is hemodynamically stable, afebrile, nontoxic-appearing. Patient is tender to palpation in the epigastric and right upper quadrant abdomen, but no acute abdomen. Given the patient's recent CBD stent, I am concerned for stent failure versus cholangitis. Orders were placed at bedside for labs, blood cultures x2, lactic acid, IV fluid bolus for hydration, EKG, CT abdomen/pelvis with IV contrast to evaluate for abdominal pain. Patient was offered something for pain and nausea, he declines at this time stating his symptoms are adequately controlled. Patient discussed with Dr. Bañuelos, who also evaluated the patient and agrees with my assessment, plan, and disposition. Labs and imaging reviewed as above, labs notable for mild leukocytosis and significantly elevated liver enzymes and lipase. Renal function is at baseline. Lactic acid is within normal limits. Troponin is negative. EKG reviewed as above, shows sinus rhythm with no acute ischemic changes. CT imaging is concerning for cholangitis and possible cholecystitis, also with some evidence for acute pancreatitis.\ The patient was covered presumptively with IV Zosyn. I spoke on the phone with ZONIA Salazar with gastroenterology, who recomm ended keeping the patient NPO, and she agrees to evaluate the patient. She recommended admitting to medicine service. I spoke with Dr. Lazar, [facility] Hospitalist, who agrees to evaluate the patient for admission. Patient reassessed multiple times throughout ED stay, he has remained hemodyna mically stable and afebrile, and his pain has been well controlled. The patient was updated on all results and plan for admission, he verbalized understanding was agreeable to that plan. The patient was stable at time of admission. The chart was completed utilizing [employer] Speech voice recognition software. Grammatical errors, random word insertions, pronoun errors, and incomplete sentences are an occasional consequence of this system due to software limitations, ambient noise, and hardware issues. Any formal questions or concerns about the content, text, or information contained within the body of this dictation should be directly addressed to the nurse practitioner for clarification. Impression & Plan Acute cholangitis, Acute epigastric pain, Nausea Past Med/Surg History Medical History HTN (hypertension) (Chronic) Afib CAD (coronary artery disease) CKD (chronic kidney disease) HOCM (hypertrophic obstructive cardiomyopathy) Hyperlipidemia NSTEMI (non-ST elevated myocardial infarction) Surgical History No pertinent past surgical history H/O colonoscopy H/O eye surgery H/O foot surgery Social History Preferred Language: Romansh Communication Ability: Effective Optical Glass Sawyer Required: No Beliefs That Will Affect Care: None Current Living Situation: Alone current occupation: IT Other Information That Helps Us Care for You: No Feels Safe at Home: Yes Safety Concerns: Feels Safe At This Time Smoking Status: Never smoker Do You Dip or Chew Tobacco: No ; Second Hand Exposure: No ; Tobacco Cessation Education Requested by Patient: No Hx Alcohol Use: Yes Alcohol Intake Frequency Comment: occasional Hx Substance Use: No Results & Data Vital Signs Vital Signs - 24 hr 02/09/19 08:58 02/09/19 11:10 02/09/19 13:05 Temperature 36.9 C Temperature Source Oral Sepsis Recent Fever Within 48 Hours No Sepsis New/Unexplained Change in Mental Status No Sepsis Action Taken by Nursing No Action Required Pulse Rate 84 Pulse Rate [Finger] 80 75 Respiratory Rate 17 16 16 Respiratory Effort / Characteristics Non-Labored Respiratory Depth Normal Blood Pressure 111/72 Blood Pressure [Left Arm] 123/72 121/74 Blood Pressure Mean 85 Blood Pressure Mean [Left Arm] 89 89 Blood Pressure Position Sitting Pulse Oximetry 96 95 97 Oxygen Delivery Method Room Air Room Air Room Air Laboratory Data Result diagrams: 02/09/19 09:17 02/09/19 09:17 Lab Results 02/09/19 02/09/19 02/09/19 Range/Units 09:17 09:17 09:17 WBC 11.79 H (4.8-10.8) K/uL RBC 4.53 L (4.7-6.1) M/uL Hgb 14.4 (14.0-18.0) g/dL Hct 41.4 L (42-52) % MCV 91.4 (80-100) fL MCH 31.8 (25-34) pg MCHC 34.8 (32-36) g/dL RDW Std Deviation 43.8 (36.4-46.3) fL RDW Coeff of Raul 13.2 (11.5-14.5) % Plt Count 240 (130-400) K/uL MPV 10.2 (7.4-10.4) fL Immature Gran % (Auto) 0.3 % Neut % (Auto) 84.0 % Lymph % (Auto) 5.2 % [place] % (Auto) 10.1 % Eos % (Auto) 0.3 % Baso % (Auto) 0.1 % Immature Gran # (Auto) 0.03 H (0.00-0.02) K/uL Neut # (Auto) 9.92 H (1.4-6.5) K/uL Lymph # (Auto) 0.61 L (1.2-3.4) K/uL [place] # (Auto) 1.19 H (0.11-0.59) K/uL Eos # (Auto) 0.03 (0-0.5) K/uL Baso # (Auto) 0.01 (0-0.2) K/uL PT (9.0-12.0) Seconds INR (0.9-1.1) APTT (21.0-31.0) Seconds PTT Ratio Sodium 138 (136-145) mmol/L Potassium 3.8 (3.5-5.1) mmol/L Chloride 105 (98-107) mmol/L Carbon Dioxide 25 (21-32) mmol/L Anion Gap 8.0 (3-11) BUN 19 H (7-18) mg/dl Creatinine 1.42 H (0.6-1.4) mg/dl Est Cr Clr Drug Dosing 43.7 ml/min Est GFR ( Amer) 57.6 Est GFR (Non-Af Amer) 49.7 BUN/Creatinine Ratio 13.5 (10-20) Glucose 124 H (70-99) mg/dl Lactate (0.4-2.0) mmol/L Calcium 8.9 (8.5-10.1) mg/dl Total Bilirubin 4.8 H (0.2-1) mg/dl AST 252 H (15-37) U/L ALT 546 H (12-78) U/L Alkaline Phosphatase 307 H (45-117) U/L Troponin I < 0.015 (0-0.045) ng/ml Total Protein 6.4 (6.4-8.2) gm/dl Albumin 3.2 L (3.4-5.0) gm/dl Globulin 3.2 (2.5-4.0) gm/dl Albumin/Globulin Ratio 1.0 (0.9-2) Lipase 1086 H (73-393) U/L Urine Color Urine Appearance (Clear) Urine pH (4.5-7.5) Ur Specific [place] (1.000-1.030) Urine Protein (Negative) Urine Glucose (UA) (Negative) Urine Ketones (Negative) Urine Blood (Negative) Urine Nitrite (Negative) Urine Bilirubin (Negative) Urine Urobilinogen (Negative) Ur Leukocyte Esterase (Negative) 02/09/19 02/09/19 02/09/19 Range/Units 10:06 11:11 11:48 WBC (4.8-10.8) K/uL RBC (4.7-6.1) M/uL Hgb (14.0-18.0) g/dL Hct (42-52) % MCV (80-100) fL MCH (25-34) pg MCHC (32-36) g/dL RDW Std Deviation (36.4-46.3) fL RDW Coeff of Raul (11.5-14.5) % Plt Count (130-400) K/uL MPV (7.4-10.4) fL Immature Gran % (Auto) % Neut % (Auto) % Lymph % (Auto) % [place] % (Auto) % Eos % (Auto) % Baso % (Auto) % Immature Gran # (Auto) (0.00-0.02) K/uL Neut # (Auto) (1.4-6.5) K/uL Lymph # (Auto) (1.2-3.4) K/uL [place] # (Auto) (0.11-0.59) K/uL Eos # (Auto) (0-0.5) K/uL Baso # (Auto) (0-0.2) K/uL PT 11.5 (9.0-12.0) Seconds INR 1.1 (0.9-1.1) APTT 26.7 (21.0-31.0) Seconds PTT Ratio 1.0 Sodium (136-145) mmol/L Potassium (3.5-5.1) mmol/L Chloride (98-107) mmol/L Carbon Dioxide (21-32) mmol/L Anion Gap (3-11) BUN (7-18) mg/dl Creatinine (0.6-1.4) mg/dl Est Cr Clr Drug Dosing ml/min Est GFR ( Amer) Est GFR (Non-Af Amer) BUN/Creatinine Ratio (10-20) Glucose (70-99) mg/dl Lactate 1.1 (0.4-2.0) mmol/L Calcium (8.5-10.1) mg/dl Total Bilirubin (0.2-1) mg/dl AST (15-37) U/L ALT (12-78) U/L Alkaline Phosphatase (45-117) U/L Troponin I (0-0.045) ng/ml Total Protein (6.4-8.2) gm/dl Albumin (3.4-5.0) gm/dl Globulin (2.5-4.0) gm/dl Albumin/Globulin Ratio (0.9-2) Lipase (73-393) U/L Urine Color Dark Yellow Urine Appearance Clear (Clear) Urine pH 7.5 (4.5-7.5) Ur Specific [place] 1.022 (1.000-1.030) Urine Protein Negative (Negative) Urine Glucose (UA) Negative (Negative) Urine Ketones 1+ H (Negative) Urine Blood Negative (Negative) Urine Nitrite Negative (Negative) Urine Bilirubin 1+ H (Negative) Urine Urobilinogen Negative (Negative) Ur Leukocyte Esterase Negative (Negative) Administered Medications Sodium Chloride (Nss) 500 mls @ 125 mls/hr IV .Q4H SILVIA Stop: 03/11/19 15:18 Last Admin: 02/09/19 16:21 Dose: 125 mls/hr Documented by: [id number] Piperacillin Sod/Tazobactam (Sod 3.375 gm/ Dextrose) 115 mls @ 28.75 mls/hr IV Q8H SILVIA; Protocol Stop: 02/19/19 15:59 Last Admin: 02/09/19 16:21 Dose: 28.8 mls/hr Documented by: [id number] Discontinued Medications Sodium Chloride (Nss 1000ml) 1,000 mls @ 999 mls/hr IV .Q1H1M SILVIA Stop: 02/09/19 10:30 Last Infusion: 02/09/19 10:58 Dose: 0 mls/hr Documented by: [id number] Admin: 02/09/19 09:53 Dose: 999 mls/hr Documented by: [id number] Piperacillin Sod/Tazobactam Sod (Zosyn) 4.5 gm in 120 mls @ 240 mls/hr IV NOW ONE Stop: 02/09/19 11:18 Last Infusion: 02/09/19 11:22 Dose: 0 mls/hr Documented by: [id number] Admin: 02/09/19 10:50 Dose: 240 mls/hr Documented by: [id number] Ioversol (Optiray 320 100ml) 92 ml IV ONCE PRN PRN Reason: Interaction Checking Stop: 02/13/19 10:20 Last Admin: 02/09/19 10:22 Dose: 92 ml Documented by: [id number] Discharge Plan Visit Data *Final* Discharge Date/Time: 02/09/19 14:40 Chief Complaint: Abdominal Pain Stated Complaint: ABDOMINAL PAIN ED Provider: Marlena Bañuelos ED Midlevel Provider: Sadia Ling Discharge Problem: Acute cholangitis, Acute epigastric pain, Nausea Patient Disposition: Admitted As Inpatient Condition: Good Discharge Instructions Interventions: ED Discharge Assessment Last Done: 02/09/19 14:40
[2019-02-09] MEDS ORDERED: SODIUM CHLORIDE 0.9% 1000ML 1,000 ML IV SCH (09:30)
[2019-02-09 09:41] LABS: Basophils # (auto) 0.01 K/uL (0-0.2); Basophils % (auto) 0.1 %; Eosinophils # (auto) 0.03 K/uL (0-0.5); Eosinophils % (auto) 0.3 %; Hematocrit (blood only) 41.4 % (42-52); Hemoglobin 14.4 g/dL (14.0-18.0); Immature Granulocytes # (auto) 0.03 K/uL (0.00-0.02); Immature Granulocytes % (auto) 0.3 %; Lymphocytes # (auto) 0.61 K/uL (1.2-3.4); Lymphocytes % (auto) 5.2 %; Mean Corpuscular Hgb Conc 34.8 g/dL (32-36); Mean Corpuscular Volume 91.4 fL (80-100); Mean Platelet Volume 10.2 fL (7.4-10.4); Monocytes # (auto) 1.19 K/uL (0.11-0.59); Monocytes % (auto) 10.1 %; Neutrophils # (auto) 9.92 K/uL (1.4-6.5); Platelet Count 240 K/uL (130-400); RDW Coefficient of Variation 13.2 % (11.5-14.5); RDW Standard Deviation 43.8 fL (36.4-46.3); Red Blood Count 4.53 M/uL (4.7-6.1); White Blood Count 11.79 K/uL (4.8-10.8)
[2019-02-09 09:49] LABS: Albumin Level 3.2 gm/dl (3.4-5.0); BUN Creatinine Ratio 13.5 (10-20); Calcium 8.9 mg/dl (8.5-10.1); Creatinine Clr Calc Pharmacy 43.7 ml/min; Est GFR (African American) 57.6; Est GFR (Non-African American) 49.7; Potassium 3.8 mmol/L (3.5-5.1)
[2019-02-09 09:56] LABS: Bilirubin,Total 4.8 mg/dl (0.2-1); Globulin 3.2 gm/dl (2.5-4.0); Total Protein 6.4 gm/dl (6.4-8.2)
[2019-02-09] MEDS ORDERED: IOVERSOL 100ml IV PRN (10:21)
[2019-02-09 10:28] LABS: INR 1.1 (0.9-1.1); Partial Thromboplastin Time 26.7 Seconds (21.0-31.0); Prothrombin Time 11.5 Seconds (9.0-12.0)
--- NOTE | 2019-02-09 10:47 | CT Scan Report ---
CT SCAN OF THE ABDOMEN AND PELVIS WITH IV CONTRAST CLINICAL HISTORY: Epigastric abdominal pain. Pancreatic mass. COMPARISON STUDY: Abdominal CT dated 01/23/2019. Abdominal MRI dated 01/23/2019. TECHNIQUE: Following the IV administration of 92 cc of Optiray 320, CT scan of the abdomen and pelvi s is performed from the lung bases to the proximal femora. Images are reviewed in the axial, sagittal , and coronal planes. IV contrast was administered without complication. A dose lowering technique wa s utilized adhering to the principles of ALARA. CT DOSE: 376.82 mGy.cm FINDINGS: Lung bases: The heart is normal in size and without pericardial effusion. There is bibasilar scarring /atelectasis. No airspace consolidation or pleural effusion is identified. Liver: The contrast-enhanced liver is normal in size, contour, and attenuation. There is minimal cent ral intrahepatic biliary ductal dilatation. No pneumobilia is seen. The hepatic veins and portal vein s are patent. Scattered hepatic cysts measure up to 2.1 cm. Additional subcentimeter hypodensities al so likely represent cysts but are too small for definitive characterization. A 2.11 Gallbladder: The gallbladder is distended. The gallbladder wall is thickened and hyperemic and there is pericholecystic stranding and fluid. The appearance is concerning for acute cholecystitis. A commo n bile duct stent is in appropriate position. The common bile duct is dilated, measuring up to 10 mm diameter. The wall of the common bile duct appears thickened and hyperemic. Inflammatory change is se en around the common bile duct and the in the hepatic hilum. Spleen: Normal in size and attenuation. Pancreas: An infiltrative mass lesion is again seen in the pancreatic head. This is not well delineat ed. The pancreatic duct is normal in caliber. Mild peripancreatic stranding is noted.. Adrenal glands: Unremarkable. Kidneys: There is markedly asymmetric cortical atrophy of the right kidney as compared to the left. P arapelvic cysts are again seen on the left. The left kidney enhances homogeneously. Abdominal vasculature: The abdominal aorta is normal in course and caliber noting moderate atheroscle rotic calcification. Bowel: Colonic fecal retention is noted. No bowel obstruction is identified. The appendix is well-vi sualized and normal. Peritoneum: There is no intraperitoneal free air or abdominal ascites. There is a small fat-containin g umbilical hernia. Foci of induration within the ventral abdominal wall are likely related to subcut aneous injections. Lymphadenopathy: A prominent portacaval node measures 1.5 cm in short axis. Pelvic viscera: The prostate gland is enlarged and heterogeneous. The bladder wall is thickened and t rabeculated indicating chronic outlet obstruction. A left-sided varicocele is noted. Skeletal structures: The skeletal structures are osteopenic. There is mild lumbosacral spondylosis. N o lytic or blastic lesions are seen. IMPRESSION: 1. An infiltrative mass lesion is again suggested in the pancreatic head. This is not well delineated on today's examination. 2. A common bile duct stent is in appropriate position. 3. The common bile duct is dilated, and the wall of the common bile duct is thickened and hyperemic. There is surrounding inflammatory change which extends extends to the hepatic hilum. Correlate clinic ally for evidence of infection/cholangitis. 4. The gallbladder is distended. The gallbladder wall is thickened and hyperemic and there is pericho lecystic stranding and fluid. The appearance is typical for cholecystitis. Again, clinical correlatio n will be required. 5. There is mild peripancreatic stranding. Correlate with serum amylase/lipase levels for evidence of acute pancreatitis. 6. Prominent upper abdominal lymph nodes are nonspecific. 7. There is minimal intrahepatic biliary ductal dilatation. No pneumobilia is seen. 8. Additional findings as above. Electronically signed by: Saul Aguayo M.D. 02/09/2019 10:46 AM
[2019-02-09] MEDS ORDERED: PIPERACILLIN/TAZOBACTAM 4.5 GM/120 ML BAG IV ONE (10:49)
[2019-02-09] MEDS ORDERED: PIPERACILL/TAZOBAC CONSULT ACTIVE PRN (10:49)
[2019-02-09 11:23] LABS: Appearance Urine Clear (Clear); Blood Urine Negative (Negative); Color Urine Dark Yellow; Glucose Urine UA Negative (Negative); Ketones Urine 1+ (Negative); Leukocyte Esterase Urine Negative (Negative); Nitrite Urine Negative (Negative); Protein Urine Negative (Negative); Specific Gravity Urine 1.022 (1.000-1.030); Urobilinogen Urine Negative (Negative); pH Urine 7.5 (4.5-7.5)
[2019-02-09 11:28] LABS: Bilirubin Urine 1+ (Negative)
[2019-02-09 11:30] LABS: Ictotest Urine Positive (Negative)
--- NOTE | 2019-02-09 12:26 | Gastrointestinal Consultation ---
Date of Consultation February 09, 2019 Assessment & Plan (1) Abnormal LFTs: (2) Pancreatic mass: (3) Abdominal pain: Pt is a 68 y/o male who presented w nausea, upper abd pain symptoms, shown to have mild leukocytosis, LFTs and lipase elevation. CT abd/pelvis concerning for cholangitis, and also gallbladder/pancreas stranding, thickening. Hx of obstructive jaundice s/p biliary and duodenal stent placements, pancreas head mass, previous ERCP done 01/24, EUS w FNA done on 01/26. Cytology on 01/26 w benign findings, he was scheduled for repeat EGD/EUS on 02/17. - Keep NPO - IV Zosyn - Plan for repeat ERCP by Dr. Schmitt today in OR. Pls send Indomethacin 100mg [place] to OR holding - Consider Surgery consult for possible cholecystitis Attg add: I interviewed and examined pt, reviewed chart and labs. Pt with panc mass, s/p recent biliary stent now with recent onset upper abd pain, LFT's show new onset increased bili and imaging shows opal dil , panc mass, cholecystitis. On exam, he is afebrile, normotensive, looks well. His abd is tender in RUQ. A/P:Stent occlusion - sludge, clot. Plan ERCP, stent exchange today by Dr. Schmitt. Abx in the interim. History of Present Illness Reason for Consultation: Cholangitis Requesting Physician: Dr. Kamilah Lazar Attending Physician: Dr. Royal Flores History of Present Illness Pt is a 68 y/o male, w PMHx of Afib on Xarelto, hx of NSTEMI, HTN, YENIFER who presented to ED w c/o RUQ, epigastric abd pain, distension, nausea. He was recently seen by our group for obstructive jaundice, pancreas head mass. Had ERCP w biliary stent placement on 01/24/19, then EUS w FNA and CBD brushing & duodenal stent placement on 01/26/19. Cytology yielded benign results. He was scheduled for repeat EGD/EUS on 02/17/19. He denies any associated fever, chills, CP, SOB w the current GI symptoms. Bowels move but was having a hard time passing gas. On eval, he has mild leukocytosis, LFTs increased: Tbili 4.8, AST 252, ALT 546, AP 307, Lipase 1086. CT abd/pelvis w contrast: 1. An infiltrative mass lesion is again suggested in the pancreatic head. This is not well delineated on today's examination. 2. A common bile duct stent is in appropriate position. 3. The common bile duct is dilated, and the wall of the common bile duct is thickened and hyperemic. There is surrounding inflammatory change which extends extends to the hepatic hilum. Correlate clinically for evidence of infection/cholangitis. 4. The gallbladder is distended. The gallbladder wall is thickened and hyperemic and there is pericholecystic stranding and fluid. The appearance is typical for cholecystitis. Again, clinical correlation will be reqired. 5. There is mild peripancreatic stranding. Correlate with serum amylase/lipase levels for evidence of acute pancreatitis. 6. Prominent upper abdominal lymph nodes are nonspecific. 7. There is minimal intrahepatic biliary ductal dilatation. No pneumobilia is seen. Allergies Allergy/AdvReac Type Severity Reaction Status Date / Time No Known Allergies Allergy Verified 02/09/19 10:17 Home Medications Home Medications Medication Instructions Recorded Confirmed Type aspirin [Adult Low Dose Aspirin] 81 mg PO .ON HOLD 08/09/18 02/09/19 History lisinopril [Zestril] 20 mg PO DAILY 08/09/18 02/09/19 History atorvastatin 40 mg PO HS #30 tab 08/12/18 02/09/19 Rx metoprolol succinate 50 mg PO QAM 30 Days #30 tab 01/26/19 02/09/19 Rx pantoprazole 40 mg PO BID 30 Days #60 tab 01/26/19 02/09/19 Rx Saccharomyces boulardii [Florastor] 250 mg PO QAM 02/09/19 02/09/19 History rivaroxaban [Xarelto] 20 mg PO QAM 02/09/19 02/09/19 History Patient History Medical History HTN (hypertension) (Chronic) Afib CAD (coronary artery disease) CKD (chronic kidney disease) HOCM (hypertrophic obstructive cardiomyopathy) Hyperlipidemia NSTEMI (non-ST elevated myocardial infarction) Surgical History No pertinent past surgical history H/O colonoscopy H/O eye surgery H/O foot surgery Social History Preferred Language: Kyrgyz Communication Ability: Effective Defensive Line Coach Required: No Beliefs That Will Affect Care: None Current Living Situation: Alone current occupation: IT Feels Safe at Home: Yes Smoking Status: Never smoker Hx Alcohol Use: Yes Alcohol Intake Frequency Comment: occasional Hx Substance Use: No Review of Systems Review of Systems: All systems reviewed & are unremarkable except as noted in HPI & below Physical Exam Constitutional: WD/WN, vitals as above well groomed, cooperative and comfortable Eyes: + scleral abnormality (mild icterus), PERRL and EOM intact bilaterally ENMT: external ear and nose normal, oropharynx normal Respiratory: normal respiratory effort, lungs clear to auscultation Cardiovascular: RRR, no murmur, no edema Gastrointestinal (Abdomen): Inspection/Auscultation: + hypoactive bowel sounds Percussion/Palpation: abdomen soft; abdomen nontender Skin: no rashes, warm and dry no jaundice Neurologic: Motor/Sensory: no asterixis Psychiatric: A+Ox3, euthymic affect Lymphatic: no lymphedema Results & Data Vital Signs (Past 12 Hours) Vital Signs Temp Pulse Pulse Resp BP BP Pulse Ox 02/09/19 11:10 80 16 123/72 95 02/09/19 08:58 36.9 C 84 17 111/72 96
[2019-02-09] MEDS ORDERED: INDOMETHACIN 50 MG SUPP PR SCH (13:00)
[2019-02-09] MEDS ORDERED: SODIUM CHLORIDE 0.9% 500 ML IV SCH (15:19)
[2019-02-09] MEDS ORDERED: ONDANSETRON INJ 2 MG/ML 2 ML VIAL IV PRN ×2 (15:19→17:08)
--- NOTE | 2019-02-09 15:26 | Anesthesiology Consultation ---
Date of Service February 09, 2019 Assessment & Plan (1) Encounter for pre-operative examination: Chart Review Chart Review: Acceptable Risk for Surgery and Patient NOT seen in Pre Admission Testing Consults Requested none ASA ASA3 Proposed Anesthesia Anesthesia Type: General Risk / Benefits Reviewed With: PT / POA / Parent / Guardian, Accepts Plan and I nformed Consent Obtained Additional Notes Tolerated [place] for ERCP on 01/23/19 without apparent complications History Surgery Operation Date: 02/09/19 08:05 Proposed Procedures p Endoscopic Retrograde Cholangiopancreatograph - Heather Schmitt MD Height/Weight Height: 5 ft 6 in Weight: 69.9 kg Allergies Allergy/AdvReac Type Severity Reaction Status Date / Time No Known Allergies Allergy Verified 02/09/19 10:17 Medications Home Medications Medication Instructions Recorded Confirmed Last Taken aspirin [Adult Low Dose Aspirin] 81 mg PO .ON HOLD 08/09/18 02/09/19 Unknown lisinopril [Zestril] 20 mg PO DAILY 08/09/18 02/09/19 02/09/19 atorvastatin 40 mg PO HS #30 tab 08/12/18 02/09/19 02/08/19 metoprolol succinate 50 mg PO QAM 30 Days #30 tab 01/26/19 02/09/19 02/08/19 pantoprazole 40 mg PO BID 30 Days #60 tab 01/26/19 02/09/19 02/08/19 Saccharomyces boulardii [Florastor] 250 mg PO QAM 02/09/19 02/09/19 02/08/19 rivaroxaban [Xarelto] 20 mg PO QAM 02/09/19 02/09/19 02/08/19 Active Medications Generic Name Dose Route Start Last Admin Trade Name Freq PRN Reason Stop Dose Admin Sodium Chloride 500 mls @ 125 mls/hr 02/09/19 15:19 02/09/19 16:21 Nss IV 03/11/19 15:18 125 mls/hr .Q4H SILVIA Administration Piperacillin Sod/Tazobactam 115 mls @ 28.75 mls/hr 02/09/19 16:00 02/09/19 16:21 Sod 3.375 gm/ Dextrose IV 02/19/19 15:59 28.8 mls/hr Q8H SILVIA Administration Protocol NPO Date Last Intake of Fluids: 02/09/19 Time Last Intake of Fluids: 07:30 Last Intake of Fluids Comment: Sip of orange juice Date Last Intake of Solids: 02/08/19 Time Last Intake of Solids: 19:00 Past Medical History Medical History HTN (hypertension) (Chronic) Afib CAD (coronary artery disease) CKD (chronic kidney disease) HOCM (hypertrophic obstructive cardiomyopathy) Hyperlipidemia NSTEMI (non-ST elevated myocardial infarction) Exercise / Class Metabolic Activity II 4-5 Yardwork/Stairs/Walk up hill Negative for chest pain or shortness of breath. Past Surgical History Surgical History No pertinent past surgical history H/O colonoscopy H/O eye surgery H/O foot surgery Past Anesthesia History No Hx of Anesthesia Complications and No Family Hx of Anesthesia Complications History of PONV No Hx of PONV and No Hx of Motion Sickness Social History Smoking Status: Never smoker Hx Alcohol Use: Yes alcohol intake frequency: holidays/special occasions only Hx Substance Use: No substance use type: does not use Review of Systems Patient denies active symptoms of GERD. denies n/v Physical Exam Vital Signs Last Vital Signs Temp 37.4 C 02/09/19 16:53 Pulse 76 02/09/19 16:53 Resp 16 02/09/19 16:53 BP 130/64 02/09/19 16:53 Pulse Ox 98 02/09/19 16:53 Constitutional not obese ENMT Mouth: no TMJ abnormality and oral opening not small Thyromental Distance: > or= 3.5 Finger Breadths Mallampati Class: II Neck normal visual inspection; neck extension not limited Respiratory normal respiratory effort Auscultation: lungs clear to auscultation bilaterally Cardiovascular Rate/Rhythm: regular rate Heart Sounds: + murmur Vessels: no carotid bruit Neurologic moves all extremities Psychiatric Orientation: alert and oriented x 3 Testing Laboratory Results 02/09/19 09:17 02/09/19 09:17 PT 11.5 Seconds (9.0-12.0) 02/09/19 10:06 INR 1.1 (0.9-1.1) 02/09/19 10:06 APTT 26.7 Seconds (21.0-31.0) 02/09/19 10:06 Urine Color Dark Yellow 02/09/19 11:11 Urine Appearance Clear (Clear) 02/09/19 11:11 Urine pH 7.5 (4.5-7.5) 02/09/19 11:11 Ur Specific [place] 1.022 (1.000-1.030) 02/09/19 11:11 Urine Protein Negative (Negative) 02/09/19 11:11 Urine Glucose (UA) Negative (Negative) 02/09/19 11:11 Urine Ketones 1+ (Negative) H 02/09/19 11:11 Urine Nitrite Negative (Negative) 02/09/19 11:11 Ur Leukocyte Esterase Negative (Negative) 02/09/19 11:11 Electrocardiogram Date: 02/09/19 Findings: + NSR @ (80) Normal sinus rhythm, Possible Left atrial enlargement, When compared with ECG of 23-JAN-2019 02:12, Sinus rhythm has replaced Atrial fibrillation Other Testing Electrocardiogram Date: 08/10/18 Findings: + AFIB @ (at 77;NS T wave abnormality) Chest X-Ray Date: 08/09/18 Findings: + NAD Echocardiogram Date: 08/10/18 EF: > 75 LV Function: hyperdynamic LV function RWMA: + none Other Findings: + atrial enlargement (mild LA) and + LVH (mild) Valvular Disease: + MR (moderate) 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
[2019-02-09] MEDS: PIPERACILLIN/TAZOBACTAM 3.375 GM in DEXTROSE 5% 100 ML IV SCH (16:21)
[2019-02-09] MEDS ORDERED: SUCCINYLCHOLINE CHLORIDE 20 MG/ML 10 ML VIAL ONE (16:50)
--- NOTE | 2019-02-09 17:06 | History & Physical Report ---
Date of Service February 09, 2019 Assessment & Plan (1) Acute cholangitis: Pt is a 68 y/o male who presented w nausea, upper abd pain symptoms, shown to have mild leukocytosis, LFTs and lipase elevation. CT abd/pelvis concerning for cholangitis, and also gallbladder/pancreas stranding, thickening. Hx of obstructive jaundice s/p biliary and duodenal stent placements, pancreas head mass, previous ERCP done 01/24, EUS w FNA done on 01/26. Cytology on 01/26 w benign findings, he was scheduled for repeat EGD/EUS on 02/17. - Keep NPO - IV Zosyn - Plan for repeat ERCP by Dr. Schmitt today in OR. - Indomethacin 100mg [place] to OR holding - Surgery consult for possible cholecystitis - Hold Xarelto due to late ERCP procedure tonight - Full code Present on Admission?: Yes (2) Acute epigastric pain: (3) Nausea: as the above Present on Admission?: Yes (4) Abdominal pain: see the above Present on Admission?: Yes (5) HTN (hypertension): continue home meds Present on Admission?: Yes (6) Anxiety: YENIFER most likely due to dehydration and pantoprazole 40 mg BID. -Avoid nephrotoxic agents. -Switch Pantoprazole to Famotidine 20 daily IV. -Gentle IV hydration with NS 125 cc/hr. -Check daily electrolytes and creatinine in AM, monitor renal function. Present on Admission?: Yes (7) Dehydration: as the above Present on Admission?: Yes (8) Abnormal LFTs: Plan to have ERCP, trend enzymes down , monitor labs. Present on Admission?: Yes (9) Pancreatic mass: pt is going to have ERCP for the relief. Follow up with surgery.Pt suppose to have biopsy done Present on Admission?: Yes (10) Atrial fibrillation with rapid ventricular response: Hold Xarelto since pt is going to have ERCP later today. -Placed order for Osmin Thaniae for DVT ppx. Present on Admission?: Yes History of Present Illness Primary Care Provider: French Arroyo DO Patient is is a 68 y/o male, w PMHx of Afib on Xarelto, hx of NSTEMI, HTN, YENIFER who presented to ED w c/o RUQ, epigastric abd pain, distension, nausea for one day. He had recently placed a stent for obstructive jaundice, pancreas head mas s. Had ERCP w biliary stent placement on 01/24/19, then EUS w FNA and CBD brushing & duodenal stent placement on 01/26/19. Cytology yielded benign results. He was scheduled for repeat EGD/EUS on 02/17/[address] Lito Ng on 02/20 after the biopsy. He denies any associated fever, chills, CP, SOB w the current GI symptoms. Bowels On eval, he has mild leukocytosis of 11K, LFTs increased: Tbili 4.8, AST 252, ALT 546, AP 307, Lipase 1086. CT abd/pelvis w contrast: 1. An infiltrative mass lesion is again suggested in the pancreatic head. This is not well delineated on today's examination. 2. A common bile duct stent is in appropriate position. 3. The common bile duct is dilated, and the wall of the common bile duct is thickened and hyperemic. There is surrounding inflammatory change which extends extends to the hepatic hilum. Correlate clinically for evidence of infection/cholangitis. 4. The gallbladder is distended. The gallbladder wall is thickened and hyperemic and there is pericholecystic stranding and fluid. The appearance is typical for cholecystitis. Again, clinical correlation will be reqired. 5. There is mild peripancreatic stranding. Correlate with serum amylase/lipase levels for evidence of acute pancreatitis. 6. Prominent upper abdominal lymph nodes are nonspecific. 7. There is minimal intrahepatic biliary ductal dilatation. No pneumobilia is seen Allergies Allergy/AdvReac Type Severity Reaction Status Date / Time No Known Allergies Allergy Verified 02/09/19 10:17 Home Medications Home Medications Medication Instructions Recorded Confirmed Type aspirin [Adult Low Dose Aspirin] 81 mg PO .ON HOLD 08/09/18 02/09/19 History lisinopril [Zestril] 20 mg PO DAILY 08/09/18 02/09/19 History atorvastatin 40 mg PO HS #30 tab 08/12/18 02/09/19 Rx metoprolol succinate 50 mg PO QAM 30 Days #30 tab 01/26/19 02/09/19 Rx pantoprazole 40 mg PO BID 30 Days #60 tab 01/26/19 02/09/19 Rx Saccharomyces boulardii [Florastor] 250 mg PO QAM 02/09/19 02/09/19 History rivaroxaban [Xarelto] 20 mg PO QAM 02/09/19 02/09/19 History Past Med/Surg History Medical History HTN (hypertension) (Chronic) Afib CAD (coronary artery disease) CKD (chronic kidney disease) HOCM (hypertrophic obstructive cardiomyopathy) Hyperlipidemia NSTEMI (non-ST elevated myocardial infarction) Surgical History No pertinent past surgical history H/O colonoscopy H/O eye surgery H/O foot surgery Social History Preferred Language: Maori Communication Ability: Effective Art Instructor Required: No Beliefs That Will Affect Care: None Current Living Situation: Alone current occupation: IT Other Information That Helps Us Care for You: No Feels Safe at Home: Yes Safety Concerns: Feels Safe At This Time Smoking Status: Never smoker Do You Dip or Chew Tobacco: No ; Second Hand Exposure: No ; Tobacco Cessation Education Requested by Patient: No Hx Alcohol Use: Yes Alcohol Intake Frequency Comment: occasional Hx Substance Use: No Review of Systems Constitutional: pleasant, cooperative Eyes: EOMI, CANDY Ear, Nose, Mouth, Throat: nostrils patent, TMJ no locking Respiratory: denies shortness of breath Cardiovascular: Additional Comments: denies chest pain and SOB Gastrointestinal: + abdominal pain, + belching, + bloating, + nausea, + excessive flatulence and + constipation Genitourinary: + as per Subjective / HPI Musculoskeletal: denies any muscle pain Integumentary: denies any skin lesions Neurologic: denies any neurological problem, parestesia or numbness Psychiatric: cooperative, pleasant Endocrine: denies polyuria, polydipsia, polyphagia Hematologic / Lymphatic: denies swelling of the LN-s Allergy / Immunological: denies seasonal allergies and rash Physical Exam Constitutional: WD/WN, vitals as above + ill appearing and + thin Eyes: PERRL, conjunctivae normal, anicteric sclerae ENMT: external ear and nose normal, oropharynx normal Neck: trachea midline, no thyromegaly Respiratory: normal respiratory effort, lungs clear to auscultation Cardiovascular: RRR, no murmur, no edema Chest (Breasts): normal inspection/palpation of breasts Gastrointestinal (Abdomen): Inspection/Auscultation: abdomen normal to inspection, + abdomen distended and normal bowel sounds Percussion/Palpation: + abdomen tender tympanic Musculoskeletal: no cyanosis or clubbing, extremities motor strength 5/5 Skin: no rashes, warm and dry Neurologic: patellar DTR's 2+ bilat, sensation intact Psychiatric: A+Ox3, euthymic affect Genitourinary: no testicular masses, no penis abnormality Lymphatic: no cervical or axillary lymphadenopathy Results & Data Vital Signs (Past 12 Hours) Vital Signs Temp Pulse Pulse Resp BP BP Pulse Ox 02/09/19 16:53 37.4 C 76 16 130/64 98 02/09/19 15:44 36.8 C 71 18 117/69 97 02/09/19 14:13 70 16 106/66 96 02/09/19 13:05 75 16 121/74 97 02/09/19 11:10 80 16 123/72 95 02/09/19 08:58 36.9 C 84 17 111/72 96 Code Status & VTE Plan Code Status Full code VTE Prophylaxis Plan VTE Prophylaxis will be ordered: No Reason for no VTE drug order: Contraindicated (Pt is going to have ERCP most likely tonight per GI) PG Care Time/CCT Total # of Minutes Spent Total Time Spent with Patient: Total time spent is greater than 50% in coordination of care (as documented) at patient's floor/unit and/or counseling patient:
[2019-02-09] MEDS ORDERED: fentaNYL citrate 100 MCG/2 ML VIAL IV PRN (17:08)
[2019-02-09] MEDS ORDERED: ePHEDrine sulfate 50 MG/ML AMP IV PRN (17:08)
[2019-02-09] MEDS ORDERED: ATROPINE SULFATE 0.1 MG/ML 10ML SYR IV PRN (17:08)
[2019-02-09] MEDS ORDERED: ONDANSETRON INJ 2 MG/ML 2 ML VIAL ONE (17:14)
[2019-02-09] MEDS ORDERED: LIDOCAINE HCL 2% 2 ML VIAL/AMP(20MG/ML) INFIL ONE (17:14)
[2019-02-09] MEDS ORDERED: DEXAMETHASONE SOD INJ 4 MG/ML VIAL ONE (17:14)
[2019-02-09] MEDS ORDERED: PROPOFOL IV EMULSION 10 MG/ML 20 ML VIAL IV ONE (17:14)
--- NOTE | 2019-02-09 17:19 | History & Physical Bridge Note ---
Date of Service February 09, 2019 History & Physical Bridge Note I have examined the patient, reviewed the History & Physical and in the interval since the performance of the History & Physical I have noted the following changes of clinical significance: no changes noted Stable for ERCP today.
[2019-02-09] MEDS ORDERED: INDOMETHACIN 50 MG SUPP PR ONE (17:28)
[2019-02-09] MEDS ORDERED: fentaNYL citrate 100 MCG/2 ML VIAL ONE (17:58)
--- NOTE | 2019-02-09 18:39 | Operative Report ---
Post Operative Report Pre & Post Diagnosis Operation Date: 02/09/19 08:05 Pre-Op Diagnosis: cholangitis Post-Op Diagnosis: cholangitis Procedure Operation Date: 02/09/19 08:05 Actual Procedures p biliary biopsy,brushuEndoscopic Retrograde Cholangiopancreatograph, biliary stent exchange, biliary brushings(Not Applicable) - Heather Schmitt MD Surgeon Heather Schmitt MD Cut Plug Packer None Estimated Blood Loss 0 Findings See Below (Occluded plastic stent, Stent exchanged to metal and in stent plastic stent, brushing and biopsy taken, pus drained) Specimens CBD brushing and biopsies Description of Procedure ERCP I attest to the content of the Intraoperative Record and any orders documented therein. Any exceptions are noted below.
--- NOTE | 2019-02-09 18:57 | GI REPORT ---
Addendum Number: 1 Addendum Date: 03/18/2019 12:11:30 PM The plastic biliary stent was removed from the common bile duct. Heather Schmitt MD 03/18/2019 12:12:00 PM This report has been signed electronically. Patient Name: Lito Muñoz Procedure Date: 02/09/2019 5:14 PM Date of : 1950 Admit Type: Emergency Department Age: 68 Gender: Male Attending MD: Heather Schmitt MD Procedure: ERCP Providers: Heather Schmitt MD Referring MD: Royal Flores MD, Kamilah Lazar Md Indications: Abnormal abdominal CT, For therapy of ascending cholangitis, Jaundice, Stent change Medicines: General Anesthesia Complications: No immediate complications. Estimated Blood Loss: Estimated blood loss: none. Procedure: Pre-Anesthesia Assessment: - Prior to the procedure, a History and Physical was performed, and patient medications and allergies were reviewed. The patient is competent. The risks and benefits of the procedure and the sedation options and risks were discussed with the patient. All questions were answered and informed consent was obtained. Patient identification and proposed procedure were verified by the physician and the nurse in the procedure room. Mental Status Examination: alert and oriented. Airway Examination: normal oropharyngeal airway and neck mobility. Respiratory Examination: clear to auscultation. CV Examination: normal. ASA Grade Assessment: III - A patient with severe systemic disease. After reviewing the risks and benefits, the patient was deemed in satisfactory condition to undergo the procedure. The anesthesia plan was to use general anesthesia. Immediately prior to administration of medications, the patient was re-assessed for adequacy to receive sedatives. The heart rate, respiratory rate, oxygen saturations, blood pressure, adequacy of pulmonary ventilation, and response to care were monitored throughout the procedure. The physical status of the patient was re-assessed after the procedure. After obtaining informed consent, the scope was passed under direct vision. Throughout the procedure, the patient's blood pressure, pulse, and oxygen saturations were monitored continuously. The Scope was introduced through the mouth, and advanced to the duodenum and used to cannulate the bile duct. The ERCP was accomplished without difficulty. The patient tolerated the procedure well. Findings: A biliary stent was visible on the automotive brake technician film. The esophagus was successfully intubated under direct vision. The scope was advanced to a normal major papilla in the descending duodenum without detailed examination of the pharynx, larynx and associated structures, and upper GI tract. The upper GI tract was grossly normal. A biliary sphincterotomy had been performed. The sphincterotomy appeared open. One plastic biliary stent originating in the biliary tree was emerging from the major papilla. The stent was visibly occluded. One stent was removed from the biliary tree using a snare and sent for cytology. A 0.035 inch straight Acrobat wire was passed into the biliary tree. The extraction balloon was passed over the guidewire and the bile duct was then deeply cannulated. Contrast was injected. I personally interpreted the bile duct images. Ductal flow of contrast was adequate. Image quality was adequate. Contrast extended to the main bile duct. The middle and upper third of the main bile duct were dilated. The lower third of the main bile duct contained a single severe stenosis 20 mm in length. Opacification of the gallbladder was seen. Cells for cytology were obtained by brushing in the lower third of the main bile duct. The lower third of the main bile duct was biopsied with a cold forceps for histology. Verification of patient identification for the specimen was done by the physician and nurse using the patient's name and date. One 6 cm covered metal biliary stent with drainage holes was placed into the common bile duct. Bile, pus and sludge flowed through the stent. The stent was in good position. One 7 Fr by 7 cm plastic biliary stent with a single external pigtail and a single internal pigtail was placed into the metal stent deep in the common bile duct with tip in the intrahepatic area. Bile flowed through the stent. The stent was in good position. PD was not cannulated nor injected with contrast. Impression: - Prior biliary sphincterotomy appeared open. - One visibly occluded stent from the biliary tree was seen in the major papilla. This was removed and sent for cytology. - A single severe biliary stricture was found in the lower third of the main bile duct. The stricture was indeterminate. There was upstream biliary ductal dilation. There was opacification of the gallbladder suggesting patency of the cystic duct. - Cells for cytology and biopsies obtained in the lower third of the main duct. - One covered metal biliary stent with drainage holes was placed into the common bile duct and an in stent plastic stent was placed to assure adequate drainage. Recommendation: - [facility] - Await cytology results and await path results. - Monitor LFTs. - Cover with ABx for 7 days. - EUS as OP as previously scheduled to FNA the HOP mass. - Follow up with Surgery as previously scheduled to discuss resection. Heather Schmitt MD 02/09/2019 6:57:11 PM This report has been signed electronically. Note Initiated On: 02/09/2019 5:14 PM Number of Addenda: 1 I attest to the content of the Intraoperative Record and orders documented therein, exceptions below {[id number]}
--- NOTE | 2019-02-09 19:12 | Anesthesiology Progress Note ---
Date of Service February 09, 2019 Anesthesia Post Procedure Vital Signs Vital Signs: Temp Pulse Pulse Pulse Resp BP BP 02/09/19 19:05 77 16 149/84 H 02/09/19 18:55 73 16 144/77 H 02/09/19 18:46 36.3 C L 94 H 14 149/84 H 02/09/19 16:53 37.4 C 76 16 130/64 02/09/19 15:44 36.8 C 71 18 117/69 02/09/19 14:13 70 16 106/66 02/09/19 13:05 75 16 121/74 02/09/19 11:10 80 16 123/72 02/09/19 08:58 36.9 C 84 17 111/72 Pulse Ox 02/09/19 19:05 98 02/09/19 18:55 100 02/09/19 18:46 100 02/09/19 16:53 98 02/09/19 15:44 97 02/09/19 14:13 96 02/09/19 13:05 97 02/09/19 11:10 95 02/09/19 08:58 96 Pain Intensity Abdomen: Pain Intensity: 4 Transfer of Care Handoff Completed per policy Notes Mental Status: alert / awake / arousable and participated in evaluation Patient Amnestic to Procedure: Yes Nausea / Vomiting: adequately controlled Pain: adequately controlled Airway Patency, RR, SpO2: stable & adequate BP & HR: stable & adequate Hydration State: stable & adequate Anesthetic Complications: no major complications apparent and Pt Satisfied with anesthetic care
--- NOTE | 2019-02-09 19:46 | Fluoroscopy Report ---
[place] ERCP biliary ductal HISTORY: 68 years-old Male for ercp acute right upper quadrant abdominal pain with common bile duct stent COMPARISON: CT abdomen and pelvis of same day TECHNIQUE: 11 spot fluoroscopic images of the abdominal right upper quadrant were obtained utilizing 214.7 seconds fluoroscopy time FINDINGS: Endoscope noted within the duodenum. Common bile duct appears to be in satisfactory positioning. Juanpablo ulation of the common bile duct with injection of contrast demonstrates decreased contrast opacificat ion about the midportion of the common bile duct suggestive of stricture. Subsequent images demonstra te placement of an expandable stent about the common bile duct. No significant intrahepatic biliary d uctal dilation identified. No contrast extravasation. IMPRESSION: Fluoroscopic assistance as above. Please see procedural report for further details. The above report was generated using voice recognition software. It may contain grammatical, syntax o r spelling errors. Electronically signed by: Earl Gunderson M.D. 02/09/2019 7:44 PM
[2019-02-09] MEDS ORDERED: ATORVASTATIN 40 MG TAB PO SCH (21:00)
[2019-02-09] MEDS ORDERED: PANTOprazole 40 MG TAB PO SCH (21:00)
[2019-02-10] MEDS: PIPERACILLIN/TAZOBACTAM 3.375 GM in DEXTROSE 5% 100 ML IV SCH ×2 (00:07→07:44)
[2019-02-10 07:15] LABS: Basophils # (auto) 0.01 K/uL (0-0.2); Basophils % (auto) 0.1 %; Hematocrit (blood only) 42.1 % (42-52); Hemoglobin 14.2 g/dL (14.0-18.0); Immature Granulocytes # (auto) 0.02 K/uL (0.00-0.02); Immature Granulocytes % (auto) 0.2 %; Lymphocytes # (auto) 0.81 K/uL (1.2-3.4); Lymphocytes % (auto) 9.7 %; Mean Corpuscular Hgb Conc 33.7 g/dL (32-36); Mean Corpuscular Volume 91.3 fL (80-100); Mean Platelet Volume 10.6 fL (7.4-10.4); Monocytes # (auto) 0.54 K/uL (0.11-0.59); Monocytes % (auto) 6.5 %; Neutrophils # (auto) 6.99 K/uL (1.4-6.5); Neutrophils % (auto) 83.5 %; Platelet Count 234 K/uL (130-400); RDW Coefficient of Variation 13.5 % (11.5-14.5); RDW Standard Deviation 44.3 fL (36.4-46.3); Red Blood Count 4.61 M/uL (4.7-6.1); White Blood Count 8.37 K/uL (4.8-10.8)
[2019-02-10 07:25] LABS: INR 1.2 (0.9-1.1); Partial Thromboplastin Ratio 0.9; Partial Thromboplastin Time 25.3 Seconds (21.0-31.0); Prothrombin Time 11.9 Seconds (9.0-12.0)
[2019-02-10 07:48] LABS: Albumin Level 3.1 gm/dl (3.4-5.0); BUN Creatinine Ratio 9.4 (10-20); Calcium 8.9 mg/dl (8.5-10.1); Creatinine Clr Calc Pharmacy 38.1 ml/min; Est GFR (African American) 48.7; Est GFR (Non-African American) 42.1; Potassium 4.2 mmol/L (3.5-5.1)
[2019-02-10 07:51] LABS: Albumin Globulin Ratio 0.9 (0.9-2); Bilirubin,Total 3.3 mg/dl (0.2-1); Globulin 3.4 gm/dl (2.5-4.0); Total Protein 6.5 gm/dl (6.4-8.2)
[2019-02-10] MEDS ORDERED: METOPROLOL SUCC 50MG EXT REL TAB PO SCH (09:00)
[2019-02-10] MEDS ORDERED: SACCHAROMYCES BOULARDII 250 MG CAP PO SCH (09:00)
[2019-02-10] MEDS ORDERED: LISINOPRIL 20 MG TAB PO SCH (09:00)
[2019-02-10] MEDS ORDERED: FAMOTIDINE 20 MG TAB PO SCH (09:00)
--- NOTE | 2019-02-10 11:53 | Gastroenterology Progress Note ---
Date of Service February 10, 2019 Assessment & Plan (1) Abnormal LFTs: (2) Pancreatic mass: (3) Abdominal pain: Pt is a 68 y/o male who presented w nausea, upper abd pain symptoms, shown to have mild leukocytosis, LFTs and lipase elevation. CT abd/pelvis concerning for cholangitis, and also gallbladder/pancreas stranding, thickening. Hx of obstructive jaundice s/p biliary and duodenal stent placements, pancreas head mass, previous ERCP done 01/24, EUS w FNA done on 01/26. Cytology on 01/26 w benign findings, he was scheduled for repeat EGD/EUS on 02/17. Repeat ERCP done on 02/09/19; stent occluded, exchanged with metal stent with plastic stent within. Cytology sent as well. He is doing well, denies abd pain, n/v, fever/chills overnight. LFTs trending down - CL diet, advance as tolerated - No contraindication for DC home from GI standpoint. - PO antibx w Cipro/Flagyl coverage x 7 days - F/U with previously scheduled EUS bx of pancreas mass by Dr. Mague Dawson and GI Surgery appt with Dr. Lito Brooks - F/U LFTs check by PCP within 1 weeks time to ensure it's normalizing. Attg add: I interviewed and examined pt, reviewed chart and labs. Pt without complaint. Ok for d/c home. Subjective Pt feels well, denies any more abd pain, just having some gas discomfort. Denies any n/v, fever, chills overnight LFTs noted to be decreasing. Review of Systems Review of Systems: All systems reviewed & are unremarkable except as noted in HPI & below Physical Exam Constitutional: WD/WN, vitals as above well groomed, cooperative and comfortable Eyes: PERRL, conjunctivae normal, anicteric sclerae ENMT: external ear and nose normal, oropharynx normal Respiratory: normal respiratory effort, lungs clear to auscultation Cardiovascular: RRR, no murmur, no edema Gastrointestinal (Abdomen): normal bowel sounds, soft, nontender, no hepatosplenomegaly Skin: no rashes, warm and dry no jaundice Neurologic: Motor/Sensory: no asterixis Psychiatric: A+Ox3, euthymic affect Lymphatic: no lymphedema Results & Data Vital Signs (Past 12 Hours) Vital Signs Temp Pulse Resp BP Pulse Ox 02/10/19 11:39 36.8 C 67 16 153/75 H 98 02/10/19 07:00 36.6 C 50 L 18 164/71 H 96 02/10/19 03:19 36.7 C 48 L 16 163/79 H 95
--- NOTE | 2019-02-10 14:27 | Discharge Summary ---
Date of Service February 10, 2019 Admission HPI Per Admitting Provider Patient is is a 68 y/o male, w PMHx of Afib on Xarelto, hx of NSTEMI, HTN, YENIFER who presented to ED w c/o RUQ, epigastric abd pain, distension, nausea for one day. He had recently placed a stent for obstructive jaundice, pancreas head mass. Had ERCP w biliary stent placement on 01/24/19, then EUS w FNA and CBD brushing & duodenal stent placement on 01/26/19. Cytology yielded benign results. He was scheduled for repeat EGD/EUS on 02/17/[address] Lito Ng on 02/20 after the biopsy. He denies any associated fever, chills, CP, SOB w the current GI symptoms. Bowels On eval, he has mild leukocytosis of 11K, LFTs increased: Tbili 4.8, AST 252, ALT 546, AP 307, Lipase 1086. CT abd/pelvis w contrast: 1. An infiltrative mass lesion is again suggested in the pancreatic head. This is not well delineated on today's examination. 2. A common bile duct stent is in appropriate position. 3. The common bile duct is dilated, and the wall of the common bile duct is thickened and hyperemic. There is surrounding inflammatory change which extends extends to the hepatic hilum. Correlate clinically for evidence of infection/cholangitis. 4. The gallbladder is distended. The gallbladder wall is thickened and hyperemic and there is pericholecystic stranding and fluid. The appearance is typical for cholecystitis. Again, clinical correlation will be reqired. 5. There is mild peripancreatic stranding. Correlate with serum amylase/lipase levels for evidence of acute pancreatitis. 6. Prominent upper abdominal lymph nodes are nonspecific. 7. There is minimal intrahepatic biliary ductal dilatation. No pneumobilia is seen Principal Diagnosis Blocked biliary stent. Possible cholangitis. Discharge Exam Constitutional WD/WN, vitals as above + ill appearing and + thin Eyes PERRL, conjunctivae normal, anicteric sclerae ENMT external ear and nose normal, oropharynx normal Neck trachea midline, no thyromegaly Respiratory normal respiratory effort, lungs clear to auscultation Cardiovascular RRR, no murmur, no edema Chest (Breasts) normal inspection/palpation of breasts Gastrointestinal (Abdomen) Inspection/Auscultation: abdomen normal to inspection, + abdomen distended and normal bowel sounds Percussion/Palpation: + abdomen tender Musculoskeletal no cyanosis or clubbing, extremities motor strength 5/5 Skin no rashes, warm and dry Neurologic patellar DTR's 2+ bilat, sensation intact Psychiatric A+Ox3, euthymic affect Genitourinary no testicular masses, no penis abnormality Lymphatic no cervical or axillary lymphadenopathy Discharge Data Allergies Allergy/AdvReac Type Severity Reaction Status Date / Time No Known Allergies Allergy Verified 02/09/19 10:17 Consultations 02/09/19 10:55 ED Decision to Admit Stat Procedures Performed Operation Date: 02/09/19 08:05 Actual Procedures p biliary biopsy,Endoscopic Retrograde Cholangiopancreatograph, biliary stent exchange, biliary brushings(Not Applicable) - Heather Schmitt MD Ordered Studies 02/09/19 09:40 CT abd pelvis IV con only Stat 02/09/19 12:23 [place] ERCP biliary ductal Stat Hospital Course (1) Acute cholangitis: Pt is a 68 y/o male who presented w nausea, upper abd pain symptoms, shown to have mild leukocytosis, LFTs and lipase elevation. CT abd/pelvis concerning for cholangitis, and also gallbladder/pancreas stranding, thickening. Hx of obstructive jaundice s/p biliary and duodenal stent placements, pancreas head mass, previous ERCP done 01/24, EUS w FNA done on 01/26. Cytology on 01/26 w benign findings, he was scheduled for repeat EGD/EUS on 02/17. - Underwent repeat ERCP by Dr. Schmitt on 02/09 with stent removal and replacement. - Discharged on Cipro/Flagyl per GI team x 7 days. - Will follow up with his outpatient GI doctors for repeat EUS on 02/17 and sonny Booth with his surgeon. - Initially there was thought that he would need a cholecystectomy; however, GI team felt this was unlikely. Additionally, he would not be a surgical candidate with possible active infection. Finally, he will see his GI surgeon soon and can discuss this as outpatient. (2) HTN (hypertension): continue home meds (3) YENIFER (acute kidney injury): Baseline Cr ~1.3-1.4. Cr was up to 1.6 on admission. Possibly due to dehydration. - Given he is now eating and drinking at baseline, this will likely resolve on its own. - Can check BMP in 1 week as outpatient. (4) Dehydration: as the above (5) Abnormal LFTs: Due to biliary blockage. - Improving on discharge. - Repeat CMP in 1 week. (6) Pancreatic mass: Concern for pancreatic cancer. Initial EUS was non-diagnostic. Will get repeat in 1 week. (7) Atrial fibrillation with rapid ventricular response: Restarted Xarelto on discharge. Total Time Total Time Spent Total Time Spent (In Minutes): 45 Total Time Includes: Examination of the Patient and Communication With Other Providers Discharge Plan Discharge Items Patient Disposition: Home - Self-Care Reason For Visit: NAUSEA AND ABDOMINAL PAIN Discharge Diagnosis: Blocked bile duct stent Condition: Good Discharge Goals: Diagnostic testing and Therapeutic intervention Activity: Resume your previous activity Non-emergency contact: Primary Care Provider and Standards Engineer Call non-emergency contact if: your symptoms worsen, your pain is not controlled, your pain is worsening and your temperature is above 101 Follow-up/Referrals: French Arroyo DO [Primary Care Provider] - Diet: Regular Addtl Provider Instructions: Mr. Muñoz, Elmer were admitted with a blocked bile duct stent. This was exchanged in the hospital, and all your labs are returning to normal. Please follow up with your outpatient GI doctors and surgeon for follow up on your pancreatic mass. Please take the antibiotics for 1 week or until you are seen by the GI doctors and told to stop. You will take the metronidzole 3 times per day and the ciprofloxacin twice a day. The metronidazole can sometimes cause stomach upset, so take it with a meal or a snack. Prescriptions: New ciprofloxacin HCl 500 mg tablet 500 mg PO BID Qty: 14 RF: 0 metronidazole [Flagyl] 500 mg tablet 500 mg PO Q8H 7 Days Qty: 21 RF: 0 Continued metoprolol succinate 50 mg Tablet Extended Release 24 Hr 50 mg PO QAM 30 Days Qty: 30 RF: 0 pantoprazole 40 mg Tablet,Delayed Release (Dr/Ec) 40 mg PO BID 30 Days Qty: 60 RF: 0 Florastor 250 mg capsule 250 mg PO QAM RF: 0 Xarelto 20 mg tablet 20 mg PO QAM RF: 0 lisinopril [Zestril] 20 mg tablet 20 mg PO DAILY RF: 0 aspirin [Adult Low Dose Aspirin] 81 mg tablet,delayed release (DR/EC) 81 mg PO .ON HOLD RF: 0 atorvastatin 40 mg Tablet 40 mg PO HS Qty: 30 RF: 5 Stand-Alone Forms: Call Back Authorization, [facility] Discharge Orders: Discharge Order (Routine); Ordered 02/10/19 Ordered By: Nuno Avila Admission Data Admit Date/Time: 02/09/19 13:23 Attending Provider: Nuno Avila Admit Provider: Kamilah Lazar Primary Care Provider: French Arroyo Other Providers: Nuno Avila Service: Telemetry Medical Other Interventions: Discharge Summary Assessment (RN) Last Done: 02/10/19 12:31 DC Date/Time DO NOT enter until pt leaves facility: 02/10/19 12:55
== END 2019-02-10 12:55 | disposition home or self-care (01) | DRG 445 ==
LOC: ED 08:49 → 2N 13:23 → SUATTDRO 13:23 → 2N 14:40